=== PATIENT | male | born 1950 | race Asian ===

== ENCOUNTER → 2017-06-04 | Outpatient (CLI) | payer MEDICARE ==
[2017-06-04 17:46] LABS: BASO % 0.4 % (0.0-1.0); EOS # 0.2 K/mm3 (0.0-0.50); EOS % 2.1 % (0.0-3.0); LARGE UNSTAINED CELL # 0.2 K/mm3 (0.0-0.4); LARGE UNSTAINED CELL % 1.6 % (0.0-4.0); LYMPH % 26.1 % (24.0-44.0); MEAN CORPUSCULAR HEMOGLOBIN 34.5 pg (27.0-33.0); MEAN CORPUSCULAR HGB CONC 34.5 g/dl (32.0-36.5); MEAN CORPUSCULAR VOLUME 100.2 fl (80.0-96.0); MONO # 0.6 K/mm3 (0.0-0.8); MONO % 5.3 % (0.0-5.0); NEUTROPHILS # 6.9 K/mm3 (1.8-7.7); NEUTROPHILS % 64.5 % (36.0-66.0); PLATELET COUNT, AUTOMATED 236 k/mm3 (150-450); RED CELL DISTRIBUTION WIDTH 13.1 % (11.5-14.5); WHITE BLOOD COUNT 10.6 K/mm3 (4.0-10.0)
[2017-06-04 18:30] LABS: ALBUMIN 4.2 GM/DL (3.2-5.2); ALBUMIN/GLOBULIN RATIO 1.24 (1.00-1.93); ALKALINE PHOSPHATASE 87 U/L (45-117); ALT/SGPT 51 U/L (12-78); ANION GAP 8 MEQ/L (8-16); AST/SGOT 49 U/L (15-37); BILIRUBIN,TOTAL 0.6 MG/DL (0.2-1.0); BLOOD UREA NITROGEN 18 MG/DL (7-18); CALCIUM LEVEL 9.3 MG/DL (8.8-10.2); CARBON DIOXIDE LEVEL 22 MEQ/L (21-32); CHLORIDE LEVEL 109 MEQ/L (98-107); CREATININE FOR GFR 1.02 MG/DL (0.70-1.30); GLOMERULAR FILTRATION RATE > 60.0 (>49); GLUCOSE, FASTING 115 MG/DL (80-110); SODIUM LEVEL 139 MEQ/L (136-145); TOTAL PROTEIN 7.6 GM/DL (6.4-8.2)
== END ==
LOC: M WUC 15:34
PROVIDERS: ATTEND Physician Assistant
DX: N39.0 Urinary tract infection, site not specified (principal)

== ENCOUNTER 2017-10-02 11:46 | Inpatient (IN) | payer MEDICARE ==
[~2017-10-02] VITALS: Ht 177.8 cm; Wt 91.1 kg
[2017-10-02] MEDS ORDERED: OXYC-517 (12:01)
[2017-10-02] MEDS ORDERED: FLUO10TA2 (12:01)
[2017-10-02] MEDS ORDERED: PROAAER10 (12:01)
[2017-10-02] MEDS ORDERED: LISI10TA4 (12:01)
[2017-10-02] MEDS ORDERED: PRAD150C (12:01)
[2017-10-02] MEDS ORDERED: ATOR80TA59 (12:01)
[2017-10-02] MEDS ORDERED: CYCL10TA (12:01)
[2017-10-02] MEDS ORDERED: GABA-279 (12:01)
[2017-10-02] MEDS ORDERED: MAGN64TASA (12:01)
[2017-10-02] MEDS ORDERED: VALA1TAB2 (12:01)
[2017-10-02] MEDS ORDERED: TRAD5TAB (12:01)
[2017-10-02] MEDS ORDERED: FENO160T10 (12:01)
[2017-10-02] MEDS ORDERED: RANI150T (12:01)
[2017-10-02] MEDS ORDERED: BISO5TAB5 (12:01)
[2017-10-02] MEDS ORDERED: METF500T13 (12:01)
[2017-10-02] MEDS ORDERED: NS 1,000 ML IV ONE ×3 (14:15→19:00)
[2017-10-02] MEDS ORDERED: IPRATROPIUM 0.5MG/ALBUTEROL 2.5MG INH SOL UD 3ML (DUONEB)(J7620) NEB ONE (14:15)
[2017-10-02 14:24] LABS: MEAN CORPUSCULAR HEMOGLOBIN 33.5 pg (27.0-33.0); MEAN CORPUSCULAR HGB CONC 33.9 g/dl (32.0-36.5); PLATELET COUNT, AUTOMATED 293 10^3/uL (150-450); RED CELL DISTRIBUTION WIDTH 13.5 % (11.5-14.5); WHITE BLOOD COUNT 10.5 10^3/uL (4.0-10.0)
[2017-10-02 14:28] LABS: ADD MANUAL DIFFER YES; BLASTS POS FLAG; DIFF SLIDE NUMBER 327; POSITIVE MORPH POS FLAG
[2017-10-02 14:36] LABS: BANDS 5 % (< 11)
--- NOTE | 2017-10-02 15:17 | REP ---
Clinical: Cough. Technique: PA and lateral. Findings: Posterior right lower lobe opacity is nonspecific. Hilar adenopathy cannot be excluded. No effusion. No pneumothorax. Cardiac silhouette is normal. Skeletal structures are intact with evidence for right shoulder replacement. Impression: Moderate posterior segment right lower lobe opacity. Differential diagnosis includes pneumonia and mass. Correlation and follow-up is recommended. Signed by New Titus MD 10/02/2017 03:08 P
[2017-10-02 15:19] LABS: CALCIUM LEVEL 8.9 MG/DL (8.8-10.2); CREATININE FOR GFR 3.58 MG/DL (0.70-1.30); GLOMERULAR FILTRATION RATE 18.1 (>49); MAGNESIUM LEVEL 1.9 MG/DL (1.8-2.4); POTASSIUM SERUM 5.1 MEQ/L (3.5-5.1)
--- NOTE | 2017-10-02 16:14 | REP ---
Clinical: Cough and chills. Findings: Moderate areas of consolidation with air bronchograms noted in the apical portions of the right lower lobe as well as area of consolidation in the medial left upper lobe and few small scattered alveolar infiltrates bilaterally. Reactive mediastinal and hilar adenopathy is appreciated with lymph nodes measuring up to approximately 14 mm short axis diameter. No pneumothorax or pleural effusion. Atherosclerotic changes to the thoracic aorta and coronary arteries noted without aortic aneurysm or cardiomegaly. No pericardial effusion. Musculoskeletal structures are intact. Impression: Multifocal consolidations primarily noted in the right lower lobe and lingula as well as very small patchy scattered opacities and mediastinal adenopathy. Differential diagnosis includes multifocal pneumonia as well as malignancy. Follow-up to resolution is recommended. Signed by New Titus MD 10/02/2017 04:05 P
[2017-10-02] MEDS ORDERED: CEFTRIAXONE SOD 1 GM in APPROPRIATE DILUENT 1 EA IV ONE (17:00)
[2017-10-02] MEDS ORDERED: AZITHROMYCIN INJ 500 MG, VIAL MATE ADAPTER 1 EACH in D5W 250 ML IV ONE (17:00)
[2017-10-02] MEDS ORDERED: TRAD5TAB PO (17:42)
[2017-10-02] MEDS ORDERED: RANI15TA PO (17:42)
[2017-10-02] MEDS ORDERED: FENO160T10 PO (17:42)
[2017-10-02] MEDS ORDERED: GABA-279 PO (17:42)
[2017-10-02] MEDS ORDERED: VALA1TAB2 PO (17:42)
[2017-10-02] MEDS ORDERED: ATOR80TA59 PO (17:42)
[2017-10-02] MEDS ORDERED: CYCL10TA PO (17:42)
[2017-10-02] MEDS ORDERED: BISO5TAB5 PO (17:42)
[2017-10-02] MEDS ORDERED: PROAAER10 INH (17:42)
[2017-10-02] MEDS ORDERED: FLUO10CA8 PO (17:42)
[2017-10-02] MEDS ORDERED: OXYC-517 PO (17:42)
[2017-10-02] MEDS ORDERED: METF500T13 PO (17:42)
[2017-10-02] MEDS ORDERED: PRAD150C PO (17:42)
[2017-10-02] MEDS ORDERED: MAGN64TASA PO (17:42)
[2017-10-02] MEDS ORDERED: LISI10TA4 PO (17:42)
[2017-10-02] MEDS ORDERED: CYCLOBENZAPRINE 10 MG TAB PO PRN (18:30)
[2017-10-02] MEDS ORDERED: valACYclovir HCL 500 MG TAB PO PRN (18:30)
[2017-10-02] MEDS ORDERED: ONDANSETRON 4 MG TAB (S0181) PO PRN (18:45)
[2017-10-02 19:13] LABS: PHOSPHORUS LEVEL 6.7 MG/DL (2.5-4.9)
[2017-10-02] MEDS: NS 1,000 ML IV SCH (19:46)
--- NOTE | 2017-10-02 19:56 | HPEPDOC ---
General Date of Admission 10/02/17 Primary Care Physician: TRACIE SULLIVAN MD [facility] Chief Complaint 67-year-old male presents to the ED for dry cough, wheeze, headache, body aches , diarrhea, intermittent confusion per daughter, subjective fevers of 104, 20 lb weight loss in the past week, decreased appetite, lightheadedness and dizziness. Symptoms have persisted for the past 10 days. Denies travel history or recent changes in medicine or ever experiencing this before. Positive for sick contact: significant other has cough and stomach bug. Denies all other ROS including chest pain, shortness of breath, nausea, vomiting. PMH includes A. fib on Predaxa, HLD, HTN, COPD, NIDDM 2. In ED, imaging revealed pneumonia versus lung mass. Vitals WNL. Negative for flu. Home Medications Scheduled Atorvastatin Calcium (Atorvastatin Calcium) 80 Mg Tab, 80 MG PO QHS, (Reported) Bisoprolol Fumarate (Bisoprolol Fumarate) 5 Mg Tab, 15 MG PO DAILY, (Reported) Dabigatran Etexilate (Pradaxa) 150 Mg Cap, 150 MG PO BID, (Reported) Fenofibrate (Fenofibrate) 160 Mg Tab, 160 MG PO DAILY, (Reported) Fluoxetine Hcl (Fluoxetine) 10 Mg Cap, 10 MG PO QPM, (Reported) Gabapentin (Gabapentin) 100 Mg Cap, 100 MG PO BID, (Reported) Linagliptin Base (Tradjenta) 5 Mg Tab, 5 MG PO QPM, (Reported) Lisinopril (Lisinopril) 10 Mg Tab, 10 MG PO DAILY, (Reported) Magnesium Chloride (Mag64) 64 Mg Tabcr, 128 MG PO BID, (Reported) Metformin Hydrochloride (Metformin HCl) 500 Mg Tab, 1,000 MG PO BID, (Reported) Ranitidine Hcl (Zantac) 150 Mg Tab, 1 TAB PO BID, (Reported) Scheduled PRN Albuterol Sulfate (Proair Hfa) 108 Mcg/Act Aer, 2 PUFF INH QID PRN for SHORTNESS OF BREATH, (Reported) Cyclobenzaprine HCl (Cyclobenzaprine HCl) 10 Mg Tab, 10 MG PO TID PRN for MUSCLE SPASMS, (Reported) Oxycodone HCl (Oxycodone HCl) 5 Mg Tab, 5 MG PO Q6H PRN for PAIN, (Reported) Valacyclovir HCl (Valacyclovir HCl) 1 Gm Tab, 1 GM PO TID PRN for OUTBREAK, ( Reported) Allergies Coded Allergies: No Known Drug Allergy (Verified Allergy, Unknown, 10/02/17) Past Medical History Medical History A. fib on Predaxa HLD HTN COPD NIDDM 2 Recurrent herpes Depression GERD First degree AV block Psoriasis Tobacco abuse OA Chronic low back pain Surgical History Right foot infection, 1990s Right shoulder replacement Laminectomy Family History Father: Mother: Uterine cancer with metastases to abdomen Siblings: CAD, CABG, HTN Social History Tobacco abuse: 1 PPD for 40+ years Review of Symptoms Constitutional: Reports: Chills, Fever, Fatigue, Weight Loss (20lb in last week ), Denies: Malaise, Night Sweats Eyes: Denies: Pain, Vision change ENT: Reports: Head Aches, Denies: Ear Pain, Dysphagia, Epistaxis Skin: Denies: Rash, Lesions Pulmonary: Reports: Cough (dry), Denies: Dyspnea Cardiovascular: Reports: Lt Headedness (+ dizziness), Denies: Chest Pain, Palpitations, Edema Gastrointestinal: Reports: Diarrhea, Denies: Nausea, Vomiting, Abdominal Pain, Melena, Hematochezia Genitourinary: Denies: Hematuria Endocrine: Denies: Heat Intolerance, Cold Intolerance Musculoskeletal: Reports: Back Pain (chronic) Neurological: Reports: Confusion (intermittent, per daughter), Denies: Weakness, Numbness, Change in speech Psych: Reports: Mood Normal Physical Examination General Exam: Positive: Alert, Cooperative, No Acute Distress Eye Exam: Positive: Conjunctiva & lids normal, EOMI, Negative: Ptosis ENT Exam: Positive: Atraumatic, Tongue Midline, Nares Patent, Other ENT (poor dentition), Negative: Mucous membr. moist/pink (dry) Neck Exam: Positive: Supple Chest Exam: Positive: Wheezing (b/l ,expiratory) Heart Exam: Positive: Rate Normal, Normal S1, Normal S2 Abdomen Exam: Positive: BS Hypoactive, Soft (protuberant), Negative: Tenderness Extremity Exam: Positive: Normal pulses, Negative: Clubbing, Cyanosis, Edema, Tenderness Skin Exam: Positive: Nl turgor and temperature Neuro Exam: Positive: Normal Speech, Strength at 5/5 X4 ext, Normal Tone, Sensation Intact Psych Exam: Positive: Mood NL, Oriented x 3 Vital Signs Vital Signs Date Time Temp Pulse Resp B/P (MAP) Pulse Ox O2 Delivery O2 Flow Rate FiO2 10/02/17 18:01 73 21 82/50 (61) 95 Nasal Cannula 10/02/17 15:43 96.9 Laboratory Data Labs 24H Laboratory Tests 2 10/02/17 14:13: Nucleated Red Blood Cells % (auto) 0.0, Neutrophils 66, Band Neutrophils 5, Lymphocytes (Manual) 26, Monocytes (Manual) 2, Atypical Lymphocytes 1, Platelet Estimate NORMAL 10/02/17 14:50: Anion Gap 12, Glomerular Filtration Rate 18.1L, Blood Urea Nitrogen 54H, Creatinine 3.58H, Sodium Level 135L, Potassium Level 5.1, Chloride Level 106, Carbon Dioxide Level 17L, Calcium Level 8.9, Magnesium Level 1.9 10/02/17 17:51: CBC/BMP Laboratory Tests 10/02/17 14:13 Red Blood Count 3.91 L, Mean Corpuscular Volume 99.0 H, Mean Corpuscular Hemoglobin 33.5 H, Mean Corpuscular Hemoglobin Concent 33.9, Red Cell Distribution Width 13.5 10/02/17 14:50 Calcium Level 8.9 Microbiology Microbiology 10/02/17 Blood Culture, Received Pending 10/02/17 Blood Culture, Received Pending 10/02/17 Influenza Virus Type A Antigen - Final, Complete 10/02/17 Influenza Virus Type B Antigen - Final, Complete Assessment/Plan Cough, diarrhea, weight loss, aches Sx for past week, worsening. Imaging revealed possible pneumonia versus lung mass Will start Rocephin and azithromycin Repeat CT scan outpatient setting in 6-8 weeks Acute renal failure Normal at baseline. 3.58 on admission Multifactorial: diarrhea, decreased po intake within past week, nephrotoxic drugs, hypotension IV fluids 120cc/hr Renal ultrasound for possible underlying structural etiology Will check UA & urine electrolytes HTN hold home bisprolol due to soft bp in ED. May restart once more stable A. fib continue home Pradaxa HLD continue home statin COPD no acute exacerbation NIDDM2 hold home metformin and Linagliptin due to ARF start ISS inpatient Recurrent shingles hold home Valtrex due to ARF DVT ppx: DANNA/SCD DISPOSITION: will admit to hospital and transfer to Dr. Wilkerson's service in am Plan / VTE VTE Prophylaxis Ordered?: Yes (DANNA/SCD) GME ATTESTATION GME ATTESTATION My faculty preceptor for this patient encounter was physically present during the encounter and was fully available. All aspects of the patient interview, examination, medical decision making process, and medical care plan development were reviewed and approved by the faculty preceptor. The faculty preceptor is aware and concurs with the plan as stated in the body of this note and will attest to such by his/her cosignature. CAROLINA SAN DO Oct 02, 2017 18:29
[2017-10-02] MEDS ORDERED: GLUCOSE 4 GM CHEW TABLET PO PRN (20:15)
[2017-10-02] MEDS ORDERED: DEXTROSE 50% 50 ML SYRINGE IV PRN (20:15)
[2017-10-02] MEDS ORDERED: GLUCAGON FOR INJ 1 MG VIAL (J1610) SC PRN (20:15)
--- NOTE | 2017-10-02 20:46 | REP ---
Clinical: Acute renal failure. Technique: Real time yoo scale ultrasound examination using curved array transducer. Findings: The bilateral kidneys are normal in contour, size, echogenicity, and reniform shape without hydronephrosis, nephrolithiasis or renal mass lesion. No perinephric fluid collection identified. Right kidney measures 12.2 x 6.3 x 5.6 cm. Left kidney includes 2 cm lower pole cyst and measures 13.3 x 5.7 x 6.5 cm. Bladder is incompletely distended but grossly normal. Impression: Incidental 2 cm left renal cyst. Otherwise normal renal ultrasound. Signed by New Titus MD 10/02/2017 08:37 P
[2017-10-02 20:55] VITALS: BP 99/55
[2017-10-02] MEDS: HumaLOG INSULIN (NovoLOG) PER UNIT SC SCH (21:00)
[2017-10-02] MEDS ORDERED: FAMOTIDINE 20 MG TAB PO SCH (21:00)
[2017-10-02] MEDS ORDERED: SLF 3 ML SYR IV PRN (21:30)
[2017-10-02] MEDS: SLF 3 ML SYR IV SCH (22:00)
[2017-10-02] MEDS: ATORVASTATIN 20 MG TAB PO SCH (22:17)
[2017-10-02] MEDS: GABAPENTIN 100 MG CAP PO SCH (22:19)
[2017-10-02] MEDS: SENOKOT S TAB PO SCH (22:20)
[2017-10-02] MEDS: MAGNESIUM CHLORIDE 64 MG TABCR (SLO MAG) PO SCH (22:33)
[2017-10-02] MEDS: DABIGATRAN ETEXILATE 75 MG CAP (PRADAXA) PO SCH (22:33)
[2017-10-02] MEDS: FLUoxetine 10 MG CAP PO SCH (22:33)
[2017-10-02 22:54] LABS: OSMOLALITY URINE 382 MOSM/KG (500-800)
[2017-10-03] VITALS (8 sets, daily range): BP systolic 90–181; BP diastolic 52–79
[2017-10-03] MEDS: NS 1,000 ML IV SCH ×3 (02:54→21:15)
[2017-10-03] MEDS: SLF 3 ML SYR IV SCH ×3 (04:57→21:22)
[2017-10-03 05:51] LABS: MEAN CORPUSCULAR HEMOGLOBIN 33.2 pg (27.0-33.0); MEAN CORPUSCULAR HGB CONC 33.7 g/dl (32.0-36.5); MEAN CORPUSCULAR VOLUME 98.5 fl (80.0-96.0); PLATELET COUNT, AUTOMATED 265 10^3/uL (150-450); RED CELL DISTRIBUTION WIDTH 13.3 % (11.5-14.5); WHITE BLOOD COUNT 7.3 10^3/uL (4.0-10.0)
[2017-10-03 06:08] LABS: CALCIUM LEVEL 8.3 MG/DL (8.8-10.2); CREATININE FOR GFR 2.3 MG/DL (0.70-1.30); GLOMERULAR FILTRATION RATE 30.2 (>49); POTASSIUM SERUM 4.5 MEQ/L (3.5-5.1)
[2017-10-03] MEDS: HumaLOG INSULIN (NovoLOG) PER UNIT SC SCH ×5 (07:44→21:00)
--- NOTE | 2017-10-03 08:12 | ECGEPIP ---
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 Order Number: [id number] Reading MD: Clara Ren Measurements Intervals [place] Rate: 69 P: 10 ID: [id number] QRS: 89 QRSD: 111 T: 65 QT: 387 QTc: 416 Interpretive Statements SINUS RHYTHM WITH FIRST DEGREE AV BLOCK MODERATE INTRAVENTRICULAR CONDUCTION DELAY NO PRIOR FOR COMPARISON Electronically Signed On 10-03-2017 8:11:58 EST by Clara Ren
[2017-10-03] MEDS: SENOKOT S TAB PO SCH ×2 (09:04→21:19)
[2017-10-03] MEDS: DABIGATRAN ETEXILATE 75 MG CAP (PRADAXA) PO SCH ×2 (09:04→21:16)
[2017-10-03] MEDS: GABAPENTIN 100 MG CAP PO SCH ×2 (09:04→21:16)
[2017-10-03] MEDS: MAGNESIUM CHLORIDE 64 MG TABCR (SLO MAG) PO SCH ×2 (09:05→21:00)
[2017-10-03 10:04] LABS: ALBUMIN 2.5 GM/DL (3.2-5.2); MAGNESIUM LEVEL 1.8 MG/DL (1.8-2.4); PHOSPHORUS LEVEL 5.1 MG/DL (2.5-4.9)
[2017-10-03] MEDS: CEFTRIAXONE SOD 1 GM in APPROPRIATE DILUENT 1 EA IV SCH (17:21)
[2017-10-03] MEDS: AZITHROMYCIN INJ 500 MG, VIAL MATE ADAPTER 1 EACH in D5W 250 ML IV SCH (18:03)
[2017-10-03] MEDS: ATORVASTATIN 20 MG TAB PO SCH (21:15)
[2017-10-03] MEDS: FLUoxetine 10 MG CAP PO SCH (21:19)
--- NOTE | 2017-10-03 22:16 | IPNPDOC ---
Subjective Date Seen The patient was seen on 10/03/17. Subjective Chief Complaint/HPI The patient is a 67-year-old male admitted with a reason for visit of LISA. States symptoms are improving, except for shortness of breath. Does not wear O2 at home, but is at 2L NC this am. Constitutional: Reports: Fatigue (improving), Denies: Chills, Fever Eyes: Denies: Pain, Vision change ENT: Reports: Head Aches (improving), Denies: Dysphagia, Sore Throat, Epistaxis Pulmonary: Reports: Dyspnea, Cough (improving) Cardiovascular: Denies: Chest Pain, Palpitations, Edema, Lt Headedness Gastrointestinal: Reports: Diarrhea (improving), Denies: Nausea, Vomiting, Abdominal Pain, Melena, Hematochezia Genitourinary: Denies: Hematuria Musculoskeletal: Denies: Joint Pain, Muscle Pain Neurological: Denies: Weakness, Numbness, Confusion Objective Physical Examination General Exam: Positive: Alert, Cooperative, No Acute Distress Eye Exam: Positive: Conjunctiva & lids normal, EOMI, Negative: Ptosis ENT Exam: Positive: Atraumatic, Tongue Midline, Nares Patent, Other ENT (poor dentition) Neck Exam: Positive: Supple Chest Exam: Positive: Wheezing (improved from yesterday, mild expiratory wheezing b/l), Other (on 2L NC) Heart Exam: Positive: Rate Normal, Regular Rhythm, Normal S1, Normal S2 Abdomen Exam: Positive: Normal bowel sounds, Soft (protuberant), Negative: Tenderness Extremity Exam: Positive: Normal pulses, Negative: Clubbing, Cyanosis, Edema, Tenderness Skin Exam: Positive: Nl turgor and temperature Neuro Exam: Positive: Normal Speech, Strength at 5/5 X4 ext, Normal Tone, Sensation Intact Psych Exam: Positive: Mood NL, Oriented x 3 Assessment /Plan Assessment Cough, diarrhea, weight loss, aches Sx for past week. Feels better today than admission. Imaging revealed possible pneumonia versus lung mass. Feels slightly better today Blood cultures, Sputum culture, blood culture at 24 hr negative Resp pnel positive Adenovirus Day 2 of Rocephin and azithromycin encourage ambulation & incentive spirometry Repeat CT scan outpatient setting in 6-8 weeks Acute renal failure Normal at baseline. 3.58 on admission, improving on IV fluids Multifactorial: diarrhea, decreased po intake within past week, nephrotoxic drugs, hypotension Renal ultrasound pending-possible underlying structural etiology UA negative, urine electrolytes low osmoles HTN hold home bisprolol due to soft bp in ED. May restart once more stable A. fib continue home Pradaxa HLD continue home statin COPD no acute exacerbation NIDDM2 hold home metformin and Linagliptin due to ARF start ISS inpatient Recurrent shingles hold home Valtrex due to ARF DVT ppx: DANNA/SCD Plan/VTE VTE Prophylaxis Ordered?: Yes (DANNA/SCD) VS, I&O, 24H, Fishbone Vital Signs/I&O Vital Signs Date Time Temp Pulse Resp B/P (MAP) Pulse Ox O2 Delivery O2 Flow Rate FiO2 10/03/17 10:11 90/53 (65) 10/03/17 08:00 97.0 83 16 93 10/03/17 07:40 Nasal Cannula 2.0 I&O- Last 24 Hours up to 6 AM 10/04/17 06:00 Output Total 500 ml Balance -500 ml Laboratory Data 24H LABS Laboratory Tests 2 10/02/17 14:13: Nucleated Red Blood Cells % (auto) 0.0, Neutrophils 66, Band Neutrophils 5, Lymphocytes (Manual) 26, Monocytes (Manual) 2, Atypical Lymphocytes 1, Platelet Estimate NORMAL 10/02/17 14:50: Anion Gap 12, Glomerular Filtration Rate 18.1L, Blood Urea Nitrogen 54H, Creatinine 3.58H, Sodium Level 135L, Potassium Level 5.1, Chloride Level 106, Carbon Dioxide Level 17L, Calcium Level 8.9, Phosphorus Level 6.7H, Magnesium Level 1.9 10/02/17 17:51: Lactic Acid Level 1.3 10/02/17 22:07: Urine Appearance CLOUDYH, Urine Color SYLVIA, Urine pH 5.0, Urine Specific [place] 1.014, Urine Protein 2+H, Urine Glucose (UA) NEGATIVE, Urine Ketones NEGATIVE, Urine Urobilinogen 0.2, Urine Bilirubin NEGATIVE, Urine Leukocyte Esterase NEGATIVE, Urine Blood 2+H, Urine Nitrite NEGATIVE, Urine WBC (Auto) 4H , Urine RBC (Auto) 2, Urine Hyaline Casts (Auto) 1, Urine Bacteria (Auto) NEGATIVE, Urine Squamous Epithelial Cells 0, Urine Mucus (Auto) SMALL, Urine Sperm (Auto) , Urine Random Osmolality 382L, Urine Random Sodium 48, Urine Random Potassium 28.9 10/02/17 22:42: Bedside Glucose (Misc Panel) 115 10/03/17 05:32: Nucleated Red Blood Cells % (auto) 0.0, Anion Gap 11, Glomerular Filtration Rate 30.2L, Blood Urea Nitrogen 47H, Creatinine 2.30H, Sodium Level 141, Potassium Level 4.5, Chloride Level 114H, Carbon Dioxide Level 16L, Calcium Level 8.3L, Phosphorus Level 5.1#H, Magnesium Level 1.8, Albumin 2.5L 10/03/17 10:57: Bedside Glucose (Misc Panel) 154H CBC/BMP Laboratory Tests 10/02/17 14:13 Red Blood Count 3.91 L, Mean Corpuscular Volume 99.0 H, Mean Corpuscular Hemoglobin 33.5 H, Mean Corpuscular Hemoglobin Concent 33.9, Red Cell Distribution Width 13.5 10/02/17 14:50 Calcium Level 8.9 10/03/17 05:32 Red Blood Count 3.31 L, Mean Corpuscular Volume 98.5 H, Mean Corpuscular Hemoglobin 33.2 H, Mean Corpuscular Hemoglobin Concent 33.7, Red Cell Distribution Width 13.3, Calcium Level 8.3 L Microbiology Microbiology 10/02/17 Blood Culture, Received Pending 10/02/17 Blood Culture, Received Pending 10/02/17 Gram Stain, Received Pending 10/02/17 Sputum Culture, Received Pending 10/02/17 Respiratory Virus Panel (PCR) ([facility]) - Final, Complete Adenovirus 10/02/17 Influenza Virus Type A Antigen - Final, Complete 10/02/17 Influenza Virus Type B Antigen - Final, Complete GME ATTESTATION GME ATTESTATION My faculty preceptor for this patient encounter was physically present during the encounter and was fully available. All aspects of the patient interview, examination, medical decision making process, and medical care plan development were reviewed and approved by the faculty preceptor. The faculty preceptor is aware and concurs with the plan as stated in the body of this note and will attest to such by his/her cosignature. CAROLINA SAN DO Oct 03, 2017 11:33
[2017-10-04] MEDS: NS 1,000 ML IV SCH (00:54)
[2017-10-04 04:00] VITALS: BP 119/59
[2017-10-04] MEDS: SLF 3 ML SYR IV SCH ×3 (04:18→21:48)
[2017-10-04 05:40] LABS: MEAN CORPUSCULAR HEMOGLOBIN 33.4 pg (27.0-33.0); MEAN CORPUSCULAR HGB CONC 34.5 g/dl (32.0-36.5); PLATELET COUNT, AUTOMATED 296 10^3/uL (150-450); RED CELL DISTRIBUTION WIDTH 12.9 % (11.5-14.5); WHITE BLOOD COUNT 5.6 10^3/uL (4.0-10.0)
[2017-10-04 06:01] LABS: ANION GAP 9 MEQ/L (8-16); BLOOD UREA NITROGEN 22 MG/DL (7-18); CALCIUM LEVEL 8.1 MG/DL (8.8-10.2); CARBON DIOXIDE LEVEL 19 MEQ/L (21-32); CHLORIDE LEVEL 114 MEQ/L (98-107); CREATININE FOR GFR 0.87 MG/DL (0.70-1.30); GLUCOSE, FASTING 127 MG/DL (80-110); POTASSIUM SERUM 3.7 MEQ/L (3.5-5.1); SODIUM LEVEL 142 MEQ/L (136-145)
[2017-10-04 06:07] LABS: GLOMERULAR FILTRATION RATE > 60.0 (>49)
[2017-10-04 07:50] VITALS: BP 115/55
[2017-10-04] MEDS: GABAPENTIN 100 MG CAP PO SCH ×2 (07:50→21:44)
[2017-10-04] MEDS: DABIGATRAN ETEXILATE 75 MG CAP (PRADAXA) PO SCH ×2 (07:50→21:46)
[2017-10-04] MEDS: MAGNESIUM CHLORIDE 64 MG TABCR (SLO MAG) PO SCH ×2 (07:50→21:44)
[2017-10-04] MEDS: SENOKOT S TAB PO SCH ×2 (07:51→21:00)
[2017-10-04] MEDS: HumaLOG INSULIN (NovoLOG) PER UNIT SC SCH ×4 (07:51→21:00)
[2017-10-04] MEDS: oxyCODONE 5MG TAB PO PRN ×2 (07:52→16:48)
--- NOTE | 2017-10-04 08:29 | IPNPDOC ---
Subjective Date Seen The patient was seen on 10/04/17. Subjective Chief Complaint/HPI The patient is a 67-year-old male admitted with a reason for visit of LISA. No acute concerns or events overnight. Pt states all symptoms are almost fully resolved. No longer on NC O2. Constitutional: Denies: Chills, Fever Eyes: Denies: Pain, Vision change ENT: Denies: Head Aches, Dysphagia Pulmonary: Reports: Dyspnea (on exertion), Denies: Cough Cardiovascular: Denies: Chest Pain, Palpitations, Edema, Lt Headedness Gastrointestinal: Denies: Nausea, Vomiting, Abdominal Pain, Diarrhea, Constipation Genitourinary: Denies: Dysuria, Hematuria Musculoskeletal: Denies: Joint Pain, Muscle Pain Neurological: Denies: Weakness, Numbness Psych: Reports: Mood Normal Objective Physical Examination General Exam: Positive: Alert, Cooperative, No Acute Distress Eye Exam: Positive: Conjunctiva & lids normal, EOMI, Negative: Ptosis ENT Exam: Positive: Atraumatic, Tongue Midline, Nares Patent, Other ENT (poor dentition) Neck Exam: Positive: Supple Chest Exam: Positive: Normal air movement, Rales (mild, RLL) Heart Exam: Positive: Rate Normal, Regular Rhythm, Normal S1, Normal S2 Abdomen Exam: Positive: Normal bowel sounds, Soft (protuberant), Negative: Tenderness Extremity Exam: Positive: Normal pulses, Negative: Clubbing, Cyanosis, Edema, Tenderness Skin Exam: Positive: Nl turgor and temperature Neuro Exam: Positive: Normal Speech, Strength at 5/5 X4 ext, Normal Tone, Sensation Intact Psych Exam: Positive: Mood NL, Oriented x 3 Assessment /Plan Assessment Cough, diarrhea, weight loss, aches Sx for past week. Feels better today than admission. Imaging revealed possible pneumonia versus lung mass. Feels almost fully improved today Blood cultures, Sputum culture, blood culture at 24 hr negative Resp panel positive Adenovirus Day 3 of Rocephin and azithromycin encourage ambulation & incentive spirometry Repeat CT scan outpatient setting in 6-8 weeks participate in PT Acute renal failure normalized today with IV fluids Multifactorial: diarrhea, decreased po intake within past week, nephrotoxic drugs, hypotension Renal ultrasound-no acute concerns UA negative, urine electrolytes low osmoles HTN hold home bisoprolol due to soft bp in ED. May restart once more stable A. fib continue home Pradaxa HLD continue home statin COPD no acute exacerbation NIDDM2 hold home metformin and Linagliptin due to ARF start ISS inpatient Recurrent shingles hold home Valtrex due to ARF DVT ppx: DANNA/SCD Plan/VTE VTE Prophylaxis Ordered?: Yes (DANNA/SCD) VS, I&O, 24H, Fishbone Vital Signs/I&O Vital Signs Date Time Temp Pulse Resp B/P (MAP) Pulse Ox O2 Delivery O2 Flow Rate FiO2 10/04/17 07:52 18 10/04/17 04:19 Room Air 10/04/17 04:00 97.9 88 119/59 (79) 93 10/03/17 16:02 2.0 I&O- Last 24 Hours up to 6 AM 10/05/17 06:00 Intake Total 120 ml Balance 120 ml Laboratory Data 24H LABS Laboratory Tests 2 10/03/17 10:57: Bedside Glucose (Misc Panel) 154H 10/03/17 17:00: Bedside Glucose (Misc Panel) 133H 10/03/17 21:21: Bedside Glucose (Misc Panel) 127H 10/04/17 05:23: Nucleated Red Blood Cells % (auto) 0.0, Anion Gap 9, Glomerular Filtration Rate > 60.0, Blood Urea Nitrogen 22#H, Creatinine 0.87#, Sodium Level 142, Potassium Level 3.7, Chloride Level 114H, Carbon Dioxide Level 19L, Calcium Level 8.1L CBC/BMP Laboratory Tests 10/04/17 05:23 Red Blood Count 3.32 L, Mean Corpuscular Volume 97.0 H, Mean Corpuscular Hemoglobin 33.4 H, Mean Corpuscular Hemoglobin Concent 34.5, Red Cell Distribution Width 12.9, Calcium Level 8.1 L Microbiology Microbiology 10/02/17 Blood Culture - Preliminary, Resulted No growth after 24 hours . All specim... 10/02/17 Blood Culture - Preliminary, Resulted No growth after 24 hours . All specim... 10/02/17 Gram Stain - Final, Resulted 10/02/17 Sputum Culture, Resulted Pending 10/02/17 Respiratory Virus Panel (PCR) ([facility]) - Final, Complete Adenovirus 10/02/17 Influenza Virus Type A Antigen - Final, Complete 10/02/17 Influenza Virus Type B Antigen - Final, Complete GME ATTESTATION GME ATTESTATION My faculty preceptor for this patient encounter was physically present during the encounter and was fully available. All aspects of the patient interview, examination, medical decision making process, and medical care plan development were reviewed and approved by the faculty preceptor. The faculty preceptor is aware and concurs with the plan as stated in the body of this note and will attest to such by his/her cosignature. CAROLINA SAN DO Oct 04, 2017 08:29
[2017-10-04] MEDS: IPRATROPIUM 0.5MG/ALBUTEROL 2.5MG INH SOL UD 3ML (DUONEB)(J7620) NEB SCH ×3 (12:00→21:09)
[2017-10-04 12:30] VITALS: BP 129/58
[2017-10-04] MEDS ORDERED: IPRATROPIUM 0.5MG/ALBUTEROL 2.5MG INH SOL UD 3ML (DUONEB)(J7620) NEB PRN (13:30)
[2017-10-04] MEDS ORDERED: CYCLOBENZAPRINE 10 MG TAB PO PRN (15:15)
[2017-10-04 16:15] VITALS: BP 121/58
[2017-10-04] MEDS: valACYclovir HCL 500 MG TAB PO SCH (16:48)
[2017-10-04] MEDS: AZITHROMYCIN INJ 500 MG, VIAL MATE ADAPTER 1 EACH in D5W 250 ML IV SCH (17:53)
[2017-10-04] MEDS: CEFTRIAXONE SOD 1 GM in APPROPRIATE DILUENT 1 EA IV SCH (17:53)
[2017-10-04 20:00] VITALS: BP 109/59
[2017-10-04] MEDS: ATORVASTATIN 20 MG TAB PO SCH (21:44)
[2017-10-04] MEDS: FLUoxetine 10 MG CAP PO SCH (21:47)
[2017-10-04] MEDS: raNITIdine SYRUP 150 MG/10 ML UDC PO SCH (21:47)
[2017-10-05] VITALS: BP 110/63
[2017-10-05] MEDS: IPRATROPIUM 0.5MG/ALBUTEROL 2.5MG INH SOL UD 3ML (DUONEB)(J7620) NEB SCH ×4 (03:06→11:22)
[2017-10-05 04:00] VITALS: BP 115/76
[2017-10-05] MEDS: SLF 3 ML SYR IV SCH (04:02)
[2017-10-05 05:43] LABS: MEAN CORPUSCULAR HEMOGLOBIN 33.4 pg (27.0-33.0); MEAN CORPUSCULAR HGB CONC 35.4 g/dl (32.0-36.5); MEAN CORPUSCULAR VOLUME 94.4 fl (80.0-96.0); PLATELET COUNT, AUTOMATED 340 10^3/uL (150-450); RED CELL DISTRIBUTION WIDTH 12.6 % (11.5-14.5); WHITE BLOOD COUNT 5.7 10^3/uL (4.0-10.0)
[2017-10-05 06:08] LABS: ANION GAP 10 MEQ/L (8-16); BLOOD UREA NITROGEN 12 MG/DL (7-18); CALCIUM LEVEL 8.6 MG/DL (8.8-10.2); CARBON DIOXIDE LEVEL 20 MEQ/L (21-32); CHLORIDE LEVEL 112 MEQ/L (98-107); CREATININE FOR GFR 0.79 MG/DL (0.70-1.30); GLOMERULAR FILTRATION RATE > 60.0 (>49); GLUCOSE, FASTING 146 MG/DL (80-110); POTASSIUM SERUM 3.9 MEQ/L (3.5-5.1); SODIUM LEVEL 142 MEQ/L (136-145)
[2017-10-05 07:30] VITALS: BP 126/66
[2017-10-05] MEDS: HumaLOG INSULIN (NovoLOG) PER UNIT SC SCH ×2 (07:30→11:50)
[2017-10-05] MEDS: DABIGATRAN ETEXILATE 75 MG CAP (PRADAXA) PO SCH (08:34)
[2017-10-05] MEDS: SENOKOT S TAB PO SCH (08:35)
[2017-10-05] MEDS: GABAPENTIN 100 MG CAP PO SCH (08:35)
[2017-10-05] MEDS: valACYclovir HCL 500 MG TAB PO SCH (08:35)
[2017-10-05] MEDS: MAGNESIUM CHLORIDE 64 MG TABCR (SLO MAG) PO SCH (08:35)
[2017-10-05] MEDS: raNITIdine SYRUP 150 MG/10 ML UDC PO SCH (08:35)
[2017-10-05 12:00] VITALS: BP 120/60
[2017-10-05] MEDS ORDERED: CEFD300CAP FT (13:05)
[2017-10-05] MEDS ORDERED: AZIT500T2 PO (13:05)
--- NOTE | 2017-10-05 13:24 | DS.PDOC ---
Discharge Summary General Date of Admission Oct 02, 2017 at 18:58 Date of Discharge 10/05/17 Primary Care Physician: Perez Bullock MD Attending Physician: RUCHI CORNELIUS MD Discharge Summary PROCEDURES PERFORMED DURING STAY: None ADMITTING DIAGNOSES: 1. Community Acquired Pneumonia 2. Acute Kidney Injury DISCHARGE DIAGNOSES: 1. Community Acquired Pneumonia 2. Adenovirus 3. Oropharyngeal Candidiasis 4. A. fib on Pradaxa 5. HLD 6. HTN 7. COPD, not on O2 8. NIDDM 2 9. Recurrent herpes 10. Depression 11. GERD 12. First degree AV block 13. Psoriasis 14. Tobacco abuse 15. OA COMPLICATIONS/CHIEF COMPLAINT: LISA. HISTORY OF PRESENT ILLNESS: Pt presented to ED with complaints of dry cough, wheeze, headache, body aches, diarrhea, intermittent confusion per daughter, subjective fevers of 104, 20 lb weight loss in the past week, decreased appetite , lightheadedness and dizziness for the previous ~2 weeks. Denies travel history or recent changes in medicine or ever experiencing this before. Positive for sick contact: significant other has cough and stomach bug. In ED, imaging revealed pneumonia versus lung mass, vitals WNL, and negative for flu. HOSPITAL COURSE: Started on IV antibiotics. Pt has normal kidney function at baseline, but Cr was elevated at 3.58 on admission, resolved with IV fluids and withholding some of pt's regular nephrotoxic home medications; renal US was negative for underlying structural disease. LISA was likely due to a combination of dehydration from diarrhea, decreased po intake, and low bp. Blood cultures negative, Resp panel resulted positive for Adenovirus, and sputum culture for yeast-like organism. Pt did not have fever or complications during stay. Started feeling better and medically stable and cleared for discharge. Instructed to f/u with PCP and repeat chest CT in 6-[address] showing possible PNA vs mass, and to complete course of PO antibiotics and antifungal. DISCHARGE MEDICATIONS: Please see below. ALLERGIES: Please see below. PHYSICAL EXAMINATION ON DISCHARGE: VITAL SIGNS: Please see below. GENERAL: NAD, A&Ox3 HEENT: normocephalic, atraumatic, EOMI, no ptosis, poor dentition NECK: supple CARDIOVASCULAR EXAMINATION: Normal S1 S2, RRR RESPIRATORY EXAMINATION: mild expiratory wheezing ABDOMINAL EXAMINATION: protuberant, NT, ND, positive bowel sounds EXTREMITIES: no c/c/e, no tenderness SKIN: no visible rash, pink, dry, warm NEUROLOGICAL EXAMINATION: normal speech, strength at 5/5 X4 ext, normal tone, sensation intact PSYCHIATRIC EXAMINATION: normal mood & affect LABORATORY DATA: Please see below. IMAGING: * 10/02/17 CXR: Moderate posterior segment right lower lobe opacity. Differential diagnosis includes pneumonia and mass. Correlation and follow-up is recommended. * 10/02/[address]: Multifocal consolidations primarily noted in the right lower lobe and lingula as well as very small patchy scattered opacities and mediastinal adenopathy. Differential diagnosis includes multifocal pneumonia as well as malignancy. Follow-up to resolution is recommended. * 10/02/17 Renal US: Incidental 2 cm left renal cyst. Otherwise normal renal ultrasound. PROGNOSIS: good ACTIVITY: As tolerated DIET: low salt, low fats DISPOSITION: home DISCHARGE INSTRUCTIONS: 1. F/U with PCP in 3-5 days, repeat chest CT scan in 6-8 weeks for PNA vs mass 2. Complete course of po antibiotics and antifungal 3. Return to ED for emergency DISCHARGE CONDITION: Stable TIME SPENT ON DISCHARGE: Greater than 40 minutes. Vital Signs/I&Os Vital Signs Date Time Temp Pulse Resp B/P (MAP) Pulse Ox O2 Delivery O2 Flow Rate FiO2 10/05/17 08:00 Room Air 10/05/17 07:30 96.8 107 20 126/66 (86) 93 10/03/17 16:02 2.0 Laboratory Data Labs 24H Laboratory Tests 2 10/04/17 21:39: Bedside Glucose (Misc Panel) 164H 10/05/17 05:09: Nucleated Red Blood Cells % (auto) 0.0, Anion Gap 10, Glomerular Filtration Rate > 60.0, Blood Urea Nitrogen 12, Creatinine 0.79, Sodium Level 142, Potassium Level 3.9, Chloride Level 112H, Carbon Dioxide Level 20L, Calcium Level 8.6L 10/05/17 11:31: Bedside Glucose (Misc Panel) 214H CBC/BMP Laboratory Tests 10/05/17 05:09 Red Blood Count 3.20 L, Mean Corpuscular Volume 94.4, Mean Corpuscular Hemoglobin 33.4 H, Mean Corpuscular Hemoglobin Concent 35.4, Red Cell Distribution Width 12.6, Calcium Level 8.6 L FSBS Laboratory Tests Test 10/04/17 21:39 10/05/17 11:31 Range/Units Bedside Glucose (Misc Panel) 164 214 80-115 MG/DL Microbiology Microbiology 10/02/17 Blood Culture - Preliminary, Resulted No Growth after 48 hours. All Specime... 10/02/17 Blood Culture - Preliminary, Resulted No Growth after 48 hours. All Specime... 10/02/17 Gram Stain - Final, Complete 10/02/17 Sputum Culture - Final, Complete Yeast Like Organism 10/02/17 Respiratory Virus Panel (PCR) ([facility]) - Final, Complete Adenovirus 10/02/17 Influenza Virus Type A Antigen - Final, Complete 10/02/17 Influenza Virus Type B Antigen - Final, Complete Discharge Medications Scheduled Atorvastatin Calcium (Atorvastatin Calcium) 80 Mg Tab, 80 MG PO QHS, (Reported) Azithromycin (Azithromycin) 500 Mg Tab, 500 MG PO DAILY Bisoprolol Fumarate (Bisoprolol Fumarate) 5 Mg Tab, 15 MG PO DAILY, (Reported) Cefdinir (Cefdinir) 300 Mg Cap, 300 MG FT Q12H Dabigatran Etexilate (Pradaxa) 150 Mg Cap, 150 MG PO BID, (Reported) Fenofibrate (Fenofibrate) 160 Mg Tab, 160 MG PO DAILY, (Reported) Fluoxetine Hcl (Fluoxetine) 10 Mg Cap, 10 MG PO QPM, (Reported) Gabapentin (Gabapentin) 100 Mg Cap, 100 MG PO BID, (Reported) Linagliptin Base (Tradjenta) 5 Mg Tab, 5 MG PO QPM, (Reported) Lisinopril (Lisinopril) 10 Mg Tab, 10 MG PO DAILY, (Reported) Magnesium Chloride (Mag64) 64 Mg Tabcr, 128 MG PO BID, (Reported) Metformin Hydrochloride (Metformin HCl) 500 Mg Tab, 1,000 MG PO BID, (Reported) Ranitidine Hcl (Zantac) 150 Mg Tab, 1 TAB PO BID, (Reported) Scheduled PRN Albuterol Sulfate (Proair Hfa) 108 Mcg/Act Aer, 2 PUFF INH QID PRN for SHORTNESS OF BREATH, (Reported) Cyclobenzaprine HCl (Cyclobenzaprine HCl) 10 Mg Tab, 10 MG PO TID PRN for MUSCLE SPASMS, (Reported) Oxycodone HCl (Oxycodone HCl) 5 Mg Tab, 5 MG PO Q6H PRN for PAIN, (Reported) Valacyclovir HCl (Valacyclovir HCl) 1 Gm Tab, 1 GM PO TID PRN for OUTBREAK, ( Reported) Allergies Coded Allergies: No Known Drug Allergy (Verified Allergy, Unknown, 10/02/17) GME ATTESTATION GME ATTESTATION My faculty preceptor for this patient encounter was physically present during the encounter and was fully available. All aspects of the patient interview, examination, medical decision making process, and medical care plan development were reviewed and approved by the faculty preceptor. The faculty preceptor is aware and concurs with the plan as stated in the body of this note and will attest to such by his/her cosignature. CAROLINA SAN DO Oct 05, 2017 13:24
[2017-10-05] MEDS ORDERED: FLUC200T2 PO (13:38)
== END 2017-10-05 13:24 | disposition home or self-care (01) | DRG 682 ==
LOC: M ED 11:46 → M ED INP 18:58 → M PCU 20:42
PROVIDERS: ADMIT Internal Medicine; ATTEND Internal Medicine
DX: N17.9 Acute kidney failure, unspecified (principal); J18.9 Pneumonia, unspecified organism; J44.0 Chronic obstructive pulmonary disease with (acute) lower respiratory infection; B37.0 Candidal stomatitis; B97.0 Adenovirus as the cause of diseases classified elsewhere; I48.91 Unspecified atrial fibrillation; F17.210 Nicotine dependence, cigarettes, uncomplicated; B02.9 Zoster without complications; K21.9 Gastro-esophageal reflux disease without esophagitis; E78.5 Hyperlipidemia, unspecified; I10 Essential (primary) hypertension; E11.9 Type 2 diabetes mellitus without complications; Z79.01 Long term (current) use of anticoagulants; Z79.84 Long term (current) use of oral hypoglycemic drugs; Z79.899 Other long term (current) drug therapy; Z96.611 Presence of right artificial shoulder joint

== ENCOUNTER → 2018-01-29 | Outpatient (REF) | payer MEDICARE ==
[2018-01-30 10:35] LABS: HEPATITIS B SURFACE ANTIGEN NEGATIVE (NEGATIVE)
[2018-01-30 10:57] LABS: HEPATITIS C VIRUS ABY INDEX < 0.0 INDEX (<0.8)
[2018-01-30 11:19] LABS: HIV 1&2 SCREEN CENTAUR NEGATIVE (NEGATIVE)
== END ==
LOC: M SFHCPLAZ 10:54
DX: Z11.59 Encounter for screening for other viral diseases (principal); B00.9 Herpesviral infection, unspecified; I10 Essential (primary) hypertension; E11.9 Type 2 diabetes mellitus without complications; M54.5 Low back pain; Z79.84 Long term (current) use of oral hypoglycemic drugs; Z79.899 Other long term (current) drug therapy
CPT/HCPCS: 87340

== ENCOUNTER → 2018-04-29 | Outpatient (CLI) | payer MEDICARE | LOC: M RAD 10:13 | DX: I65.29 Occlusion and stenosis of unspecified carotid artery (principal) | CPT/HCPCS: 93880 ==

== ENCOUNTER → 2018-06-05 | Outpatient (CLI) | payer MEDICARE ==
[2018-06-05 10:33] LABS: BLOOD UREA NITROGEN 19 MG/DL (7-18)
[2018-06-05 10:33] LABS: CREATININE FOR GFR 1.06 MG/DL (0.70-1.30); GLOMERULAR FILTRATION RATE > 60.0 (>42)
== END ==
LOC: M LAB 09:38
DX: I65.23 Occlusion and stenosis of bilateral carotid arteries (principal)
CPT/HCPCS: 82565

== ENCOUNTER → 2019-01-10 | Outpatient (CLI) | payer MEDICARE ==
[~2019-01-10] MED LIST: ATOR80TA59; ATOR80TA59 PO; AZIT500T2 PO; BISO5TAB5; BISO5TAB5 PO; CEFD300CAP FT; CYCL10TA; CYCL10TA PO; FENO160T10; FENO160T10 PO; FLUC200T2 PO; FLUO10CA8 PO; FLUO10TA2; GABA-1171; GABA-1171 PO; LISI10TA4; LISI10TA4 PO; MAGN64TASA; MAGN64TASA PO; METF500T13; METF500T13 PO; OXYC-517; OXYC-517 PO; PRAD150C; PRAD150C PO; PROAAER10; PROAAER10 INH; RANI150T; RANI15TA PO; TRAD5TAB; TRAD5TAB PO; VALA1TAB2; VALA1TAB2 PO
--- NOTE | 2019-01-10 12:40 | REP ---
CAROTID ULTRASOUND: Real-time sonographic evaluation and duplex Doppler interrogation of the extracranial carotid vasculature is performed. There is moderate plaquing and narrowing in both carotid bulbs extending into the internal and external carotid arteries. There is an elevated peak systolic velocity of the left internal carotid artery as well as elevated ICA to CCA ratio compatible with left ICA stenosis in the range of 60-79%. Luminal narrowing of the right ICA is in the range of under 50%. There is normal direction of flow in both vertebral arteries. Cysts are seen in the right lobe of the thyroid, largest measuring 5 mm. There is a heterogeneous solid appearing nodule in the left lobe of the thyroid 1.6 x 1.2 x 1.4 cm. RIGHT LEFT Peak systolic velocity ICA 102.0 cm/s 176.0 cm/s End diastolic velocity ICA 30.0 cm/s 39.5 cm/s Peak systolic velocity CCA 69.6 cm/s 72.4 cm/s Peak systolic velocity ECA 99.8 cm/s 218.0 cm/s ICA/CCA ratio 1.9 3.1 IMPRESSION: Moderate plaquing and narrowing in both carotid bulbs extending into the internal and external carotid arteries. There is stenosis of the left internal carotid artery 60-79%. Luminal narrowing right ICA less than 50%. Solid appearing nodule left lobe of thyroid 1.6 cm maximally. Recommend followup thyroid ultrasound in 6 months. Electronically Signed by Maury Hernandez MD 01/13/2019 11:10 A
== END ==
LOC: M RAD 10:10
PROVIDERS: ATTEND Surgery Vascular Surgery
DX: I65.23 Occlusion and stenosis of bilateral carotid arteries (principal); E04.1 Nontoxic single thyroid nodule

== ENCOUNTER → 2019-08-13 | Outpatient (CLI) | payer MEDICARE ==
[~2019-08-13] MED LIST changes: -BISO5TAB5; -BISO5TAB5 PO; +BISO5TAB9; +BISO5TAB9 PO; -PRAD150C; -PRAD150C PO; +PRAD150C6; +PRAD150C6 PO
--- NOTE | 2019-08-13 10:36 | REP ---
CAROTID ULTRASOUND: Real-time ultrasound evaluation and duplex Doppler interrogation of the extracranial carotid vasculature is performed. COMPARISON: 01/10/2019 Once again, there is moderate partially calcified plaquing and narrowing in both carotid bulbs extending into the internal and external carotid arteries. The previously noted elevated peak systolic velocity in the left internal carotid artery is not seen on today's exam. Therefore, based on velocity criteria, luminal narrowing is less than 50% bilaterally. There are normal ICA/CCA ratios bilaterally. There is normal direction of flow in both vertebral arteries. RIGHT LEFT Peak systolic velocity ICA 97.5 cm/s 110 cm/s End diastolic velocity ICA 25.0 cm/s 34.4 cm/s Peak systolic velocity CCA 73.7 cm/s 85.7 cm/s Peak systolic velocity ECA 50.0 cm/s 156.0 cm/s ICA/CCA ratio 1.3 1.3 Incidental note is made of a 3 mm hypoechoic nodule or cyst in the left thyroid, of doubtful significance. IMPRESSION: Moderate plaquing and narrowing of both carotid bulbs and internal carotid arteries. Based on velocity criteria, there is no hemodynamically significant stenosis on today's exam with luminal narrowing less than 50%. The previously noted increased peak velocity in the left internal carotid artery is not seen on today's exam. Electronically Signed by Maury Hernandez MD 08/13/2019 06:23 P
== END ==
LOC: M RAD 08:36
PROVIDERS: ATTEND Physician Assistant
DX: I65.23 Occlusion and stenosis of bilateral carotid arteries (principal)

== ENCOUNTER → 2020-12-10 | Outpatient (CLI) | payer MEDICARE ==
[~2020-12-10] MED LIST changes: -AZIT500T2 PO; +AZIT500T5 PO; +BISO5TAB14; +BISO5TAB14 PO; -BISO5TAB9; -BISO5TAB9 PO; +CYCL-707; +CYCL-707 PO; -CYCL10TA; -CYCL10TA PO; +FLUO10CA16 PO; -FLUO10CA8 PO; +LISI10TA22; +LISI10TA22 PO; -LISI10TA4; -LISI10TA4 PO; -VALA1TAB2; -VALA1TAB2 PO; +VALA1TAB5; +VALA1TAB5 PO
--- NOTE | 2020-12-10 10:53 | REP ---
INDICATION: OCCLUSION AND STENOSIS COMPARISON: Comparison study is from August 13, 2019.. TECHNIQUE: Real-time ultrasound evaluation and duplex Doppler interrogation of the extracranial carotid vasculature is performed. FINDINGS: Antegrade flow is observed in both vertebral arteries. Right carotid: The right common carotid artery shows diffuse intimal thickening but is otherwise unremarkable. There moderate mixed plaquing in the right carotid bulb and proximal ICA on two-dimensional scanning. Color flow and spectral Doppler interrogation are unremarkable on the right. Velocity chart right carotid: Right CCA PSV: 76 cm/S Right ICA PSV: 196 cm/S Right ICA EDV: 65 cm/S Right ECA PSV: 147 cm/S Right ICA/CCA ratio: 2.5 Left carotid: The left common carotid artery shows diffuse intimal thickening but is otherwise unremarkable. There is moderate mixed plaquing in the left carotid bulb and proximal ICA on two-dimensional scanning. Color flow and spectral Doppler interrogation are unremarkable on the left. Velocity chart left carotid: Left CCA PSV: 77 cm/S Left ICA PSV: 161 cm/S Left ICA EDV: 60 cm/S Left ECA PSV: 245 cm/S Left ICA/CCA ratio: 2.0 IMPRESSION: 50 to 69% category narrowing in the right internal carotid artery by Doppler velocity criteria. Velocities have increased in the ICA on the right since the prior study. The of also increased in the ECA on the right. 50-69% category narrowing in the left ICA by Doppler velocity criteria. ICA and ECA velocities are higher today than on the prior study. <Electronically signed by aMnsoor Trevizo > 12/10/20 [id number]
== END ==
LOC: M RAD 08:51
PROVIDERS: ATTEND Physician Assistant
DX: I65.23 Occlusion and stenosis of bilateral carotid arteries (principal)

== ENCOUNTER → 2021-01-31 | Outpatient (CLI) | payer MEDICARE ==
--- NOTE | 2021-01-31 10:47 | REP ---
INDICATION: SCREENING FOR LUNG CA COMPARISON: 10/02/2017 TECHNIQUE: Axial noncontrast images from the thoracic inlet to the upper abdomen using low-dose lung screening technique (LDCT). FINDINGS: There is a 2.5 cm rounded opacity in the basilar right upper lobe having a somewhat spiculated/sunburst appearance with adjacent area of opacity. This finding represents a new finding as compared with 2017 and the previous areas of consolidation have resolved. Few mediastinal lymph nodes are again identified and similar to prior examination. No further consolidation, effusion, or pneumothorax. Tracheobronchial tree is patent. IMPRESSION: Lung-RADS category 4B. A 2.5 cm suspicious opacity in the basilar right upper lobe with spiculated margins and adjacent surrounding ground-glass opacity. Findings require further attention. Consider PET-CT and/or tissue sampling. <Electronically signed by [place] T[place] > 01/31/21 1040
== END ==
LOC: M RAD 10:25
PROVIDERS: ATTEND Family Medicine
DX: Z12.2 Encounter for screening for malignant neoplasm of respiratory organs (principal); R91.8 Other nonspecific abnormal finding of lung field

== ENCOUNTER → 2021-02-14 | Outpatient (CLI) | payer MEDICARE ==
--- NOTE | 2021-02-16 11:31 | REP ---
INDICATION: STAGING NEOPLASM OF UNCERTAIN BEHAVIOR LUNG D38.1. COMPARISON: Comparison chest CT January 31, 2021. TECHNIQUE: Sixty-three minutes following the intravenous injection of a 16.38 mCi dose of F-18 FDG, three-dimensional PET scintigraphy is acquired from the skull base to the proximal thighs. Triplanar noncontrast CT scanning is acquired through the same anatomic range for attenuation correction, and image registration with scan parameters optimized to minimize radiation exposure to the patient. PET scintigraphy and CT datasets were fused and displayed on a workstation with multiplanar and projection display capability. FINDINGS: No abnormality is noted in the head and neck soft tissues. There appears to be a prosthetic right shoulder joint. No abnormal hilar or mediastinal hypermetabolic bakari uptake is seen in the chest. The part solid 2.9 cm right upper lobe nodule identified on recent chest CT study is again seen. Maximum standard uptake value within this nodule is 1.85. This visible FDG accumulation is not considered hypermetabolic. However, this does not exclude low grade malignancy given the somewhat suspicious morphology of the lesion. No other abnormal hypermetabolic uptake is seen within the thorax. There is borderline uptake in 2 normal-sized left axillary lymph nodes, maximum standard uptake value 2.13 in the 1.1 cm lymph node which is the more superior of the 2.. Maximum standard uptake value in a inferiorly adjacent lymph node is 2.82. This lymph node has a very thin cortical margin and preserved fatty hilar architecture. This is not most likely incidental finding. There is no abnormal uptake in the breast soft tissues on either side. One consideration would be reactive lymphadenopathy if the patient had an ipsilateral recent vaccination. In the abdomen and pelvis there is normal distribution of FDG. No abnormal hypermetabolic uptake is seen in the abdomen or pelvis. IMPRESSION: The morphologically suspicious right upper lobe part solid nodule shows discernible but non hypermetabolic level FDG accumulation. This is not felt to exclude malignancy. No other abnormal hypermetabolic uptake is appreciated. Incidental low level uptake in the left axillary lymph nodes most likely reactive. <Electronically signed by Mansoor Trevizo > 02/16/21 1125
== END ==
LOC: M PLARAD 14:44
PROVIDERS: ATTEND Family Medicine
DX: D38.1 Neoplasm of uncertain behavior of trachea, bronchus and lung (principal); R91.1 Solitary pulmonary nodule
CPT/HCPCS: 78815; A9552

== ENCOUNTER → 2021-03-02 | Outpatient (CLI) | payer MEDICARE ==
--- NOTE | 2021-03-02 16:59 | REP ---
INDICATION: OTHER NONSPECIFIC ABNORMAL FINDING OF LUNG FIELD. COMPARISON: Comparison CT study January 31, 2021 and October 02, 2017.. TECHNIQUE: Helical scanning is acquired. 3 mm axial images are generated. Coronal and sagittal MPR and coronal MIP images are generated. I logic protocol acquisition is reformatted as well. FINDINGS: There is a spiculated 2.7 cm not completely solid nodule in the posterior segment of the right upper lobe abutting the major fissure as seen on recent chest CT study. This contains air bronchograms. It is surrounded by some interstitial and ground-glass opacity in the larger area of lung parenchymal adjacent. The infiltrates noted in the right lower lobe and lingula on the remote prior study have resolved. No other significant pulmonary nodule is seen. Vascular calcification is noted in the aorta its branches. There is some valvular calcification in the region of the aortic valve as well. There are granulomatous calcifications in the left lower lobe medially. These are unchanged from prior studies. There is a pre carinal lymph node measuring 10 x 25 by 15 mm. There are 2 normal-sized lymph nodes in the aortopulmonary window region of the mediastinum. No definite adenopathy. Granulomatous calcifications are seen scattered in the spleen. Visualized upper abdominal structures are unremarkable otherwise. Normal adrenal glands. No extra thoracic mass or adenopathy. No bony destructive lesion is seen. There is a right shoulder arthroplasty. IMPRESSION: Suspicious 2.6 cm right upper lobe pulmonary nodule with surrounding ground-glass opacity and interstitial disease. No definite evidence of adenopathy. <Electronically signed by Mansoor Trevizo > 03/02/21 [id number]
== END ==
LOC: M RAD 16:26
PROVIDERS: ATTEND Internal Medicine Pulmonary Disease
DX: R91.8 Other nonspecific abnormal finding of lung field (principal); J84.10 Pulmonary fibrosis, unspecified; I70.0 Atherosclerosis of aorta

== ENCOUNTER → 2021-03-09 | Outpatient (CLI) | payer MEDICARE | LOC: M LABSMTC 12:24 | PROVIDERS: ATTEND Anesthesiology | DX: Z01.812 Encounter for preprocedural laboratory examination (principal); Z20.822 Contact with and (suspected) exposure to COVID-19 ==

== ENCOUNTER → 2021-03-11 | Outpatient (CLI) | payer MEDICARE ==
[~2021-03-11] MED LIST changes: +ANOR1AER IN; +FAMO20TA PO; +FLAX100016 PO; +FLON1SPR; +NIAC500T17 PO; +NOXI1TAB PO; +PRESCAP PO; +TIZA4CAP6 PO
[2021-03-11 16:27] LABS: BASO # 0.1 10^3/uL (0.0-0.2); BASO % 0.8 % (0.0-1.0); EOS # 0.1 10^3/uL (0.0-0.5); EOS % 1.9 % (0.0-3.0); HEMATOCRIT 38.2 % (42.0-52.0); HEMOGLOBIN 12.6 g/dl (13.5-17.5); LYMPH # 1.8 10^3/uL (1.5-5.0); MEAN CORPUSCULAR HEMOGLOBIN 34.3 pg (27.0-33.0); MEAN CORPUSCULAR VOLUME 104.1 fl (80.0-96.0); MONO # 0.7 10^3/uL (0.0-0.8); MONO % 8.7 % (2.0-8.0); NEUTROPHILS # 4.8 10^3/uL (1.5-8.5); NEUTROPHILS % 64.2 % (36.0-66.0); PLATELET COUNT, AUTOMATED 222 10^3/uL (150-450); RED BLOOD COUNT 3.67 10^6/uL (4.30-6.10); WHITE BLOOD COUNT 7.5 10^3/uL (4.0-10.0)
[2021-03-11 16:40] LABS: INR 0.96
[2021-03-11 16:41] LABS: PARTIAL THROMBOPLASTIN TIME 42.7 SECONDS (24.2-38.5)
[2021-03-11 16:47] LABS: BLOOD UREA NITROGEN 17 MG/DL (7-18); CALCIUM LEVEL 9.2 MG/DL (8.8-10.2); CARBON DIOXIDE LEVEL 23 MEQ/L (21-32); CHLORIDE LEVEL 111 MEQ/L (98-107); CREATININE FOR GFR 0.88 MG/DL (0.70-1.30); GLOMERULAR FILTRATION RATE > 60.0 (>42); GLUCOSE, FASTING 131 MG/DL (70-100); POTASSIUM SERUM 4.5 MEQ/L (3.5-5.1); RHEUMATOID FACTOR QUANT < 10.0 IU/ML (<15.0); SODIUM LEVEL 141 MEQ/L (136-145)
== END ==
LOC: M LAB 14:56
PROVIDERS: ATTEND Internal Medicine Pulmonary Disease
DX: R91.8 Other nonspecific abnormal finding of lung field (principal)

== ENCOUNTER 2021-03-14 06:03 | Day surgery (SDC) | payer MEDICARE ==
[~2021-03-14] VITALS: Ht 175.3 cm; Wt 81.6 kg
[2021-03-14] MEDS ORDERED: ePHEDrine SULFATE 25 MG/5 ML(5MG/ML) SYRINGE ONE (06:04)
[2021-03-14] MEDS ORDERED: PHENYLephrine 500MCG 5ML (100MCG/ML) SYRINGE ONE (06:04)
[2021-03-14] MEDS ORDERED: LR 1,000 ML IV ONE (06:15)
[2021-03-14] MEDS ORDERED: LIDOCAINE 4% INJ 5ML AMP INH ONE (06:15)
[2021-03-14] MEDS ORDERED: ALBUTEROL SULFATE 2.5 MG/0.5 ML INH NEB SOLN INH ONE ×2 (06:15→09:20)
[2021-03-14] MEDS ORDERED: LIDOCAINE 2% 100MG/5ML SDV (FOR ANES.) As Ordered ONE (07:09)
[2021-03-14] MEDS ORDERED: MIDAZOLAM INJ 2MG/2ML VIAL (J2250 PER 1MG) As Ordered ONE (07:09)
[2021-03-14] MEDS ORDERED: propofoL 200 MG/20 ML VIAL As Ordered ONE (07:09)
[2021-03-14] MEDS ORDERED: ROCURONIUM BROMIDE 50 MG/5 ML VIAL As Ordered ONE (07:09)
[2021-03-14] MEDS ORDERED: fentaNYL 100 MCG/2 ML INJECTION (J3010) As Ordered ONE ×2 (07:10→08:28)
[2021-03-14] MEDS ORDERED: THROMBIN SOLN 5,000 UNITS VIAL As Ordered ONE (07:13)
[2021-03-14] MEDS ORDERED: CETACAINE SPRAY 5GM As Ordered ONE (07:13)
[2021-03-14] MEDS ORDERED: EPINEPHrine 1MG/10ML SYRINGE 1.5IN As Ordered ONE (07:13)
[2021-03-14] MEDS ORDERED: LIDOCAINE 1% SDV 30ML VIAL As Ordered ONE (07:13)
[2021-03-14] MEDS ORDERED: KETOROLAC 60MG 2ML VIAL As Ordered ONE (08:02)
[2021-03-14] MEDS ORDERED: ONDANSETRON 4MG/2ML VIAL As Ordered ONE (08:02)
[2021-03-14] MEDS ORDERED: SUGAMMADEX SODIUM 500 MG/5 ML VIAL (BRIDION) As Ordered ONE (08:02)
[2021-03-14] MEDS ORDERED: HYDROMORPHONE HCL 0.5 MG/ 0.5 ML SYRINGE (J1170 PER 1) IV PRN (09:05)
[2021-03-14] MEDS ORDERED: fentaNYL 100 MCG/2 ML INJECTION (J3010) IV PRN (09:05)
[2021-03-14] MEDS ORDERED: oxyCODONE 5MG TAB PO PRN (09:05)
[2021-03-14] MEDS ORDERED: ONDANSETRON 4MG/2ML VIAL IV PRN (09:05)
[2021-03-14] MEDS ORDERED: LR 1,000 ML IV SCH (09:05)
--- NOTE | 2021-03-14 09:07 | ROOR ---
Patient Name: Mynor Dong Procedure Date: 03/14/2021 7:24 AM Date of : 1950 Admit Type: Outpatient Age: 71 Note Status: Finalized Attending MD: Honey Stanford MD Procedure: Bronchoscopy Indications: Right upper lobe nodule Providers: Honey Stanford MD (Doctor), Marc Moore DO (1st Assisting Doctor) Referring MD: Misael Patel MD (Referring MD) Requesting Physician: Medicines: Lidocaine 4% via nebulizer with Albuterol 2.5 mg, General Anesthesia, Epinephrine 1 mg/10 mL topical 1 mL, Cetacaine topical Complications: No immediate complications. Estimated blood loss: Minimal Procedure: Pre-Anesthesia Assessment: - Prior to the procedure, a History and Physical was performed, and patient medications and allergies were reviewed. The patient's tolerance of previous anesthesia was also reviewed. The risks and benefits of the procedure and the sedation options and risks were discussed with the patient. All questions were answered, and informed consent was obtained. Prior Anticoagulants: The patient has taken Pradaxa (dabigatran), last dose was 5 days prior to procedure. ASA Grade Assessment: III - A patient with severe systemic disease. After reviewing the risks and benefits, the patient was deemed in satisfactory condition to undergo the procedure. - Patient identification and proposed procedure were verified prior to the procedure by the physician, the nurse, the anesthesiologist, the welfare project manager and the facility environmental technician. The procedure was verified in the procedure room. The Bronchoscope was introduced through the mouth, via the endotracheal tube (the patient was intubated for the procedure) and advanced to the tracheobronchial tree of both lungs. The procedure was accomplished without difficulty. The patient tolerated the procedure well. Findings: The endotracheal tube is in good position. The visualized portion of the trachea is of normal caliber. The peace is sharp. The tracheobronchial tree was examined to at least the first subsegmental level. Bronchial mucosa and anatomy are normal; there was scattered mucosal pitting and webbing noted throughout and thick clear mucoid secretions. The right upper lobe had anatomic variant with two segmental bronchial divisions. There was no endobronchial lesions seen but tortuous airway in right upper lobe apico-anterior subsegmental bronchus with some edematous mucosa. [employer] Robotic Electromagnetic navigation bronchoscopy was performed. The CT scan was used for planning purposes. A virtual bronchoscopic image was generated using the planning software. The target in the anterior segment of the right upper lobe was marked. A nodule approx 2.5 cm in size was found and a pathway was created. The robotic navigation phase was then begun to locate the target lesion(s). Positioning off-center (in relation to the lesion) was confirmed using the Olympus radial probe US catheter. Fluoroscopy guided transbronchial brushings of a nodule were obtained in the anterior segment of the right upper lobe with a cytology brush and also with a microbiology brush and sent for routine cytology and microbiology. Transbronchial brushing technique was selected because the sampling site was not visible endoscopically. Transbronchial biopsies of a nodule were performed in the anterior segment of the right upper lobe using forceps and sent for histopathology examination. The procedure was guided by fluoroscopy. Transbronchial biopsy technique was selected because the sampling site was not visible endoscopically. Fiducial marker placement was performed. Once the target lesion was identified, two markers were deployed in and around the lesion 3 mm apart in the anterior segment of the right upper lobe. An endobronchial ultrasound endoscope was utilized in order to assist with fine needle aspiration in the right paratracheal area. Transbronchial needle aspirations of a lymph node were performed in the right paratracheal area using an Olympus EBUS-TBNA 21 gauge needle and sent for routine cytology. The procedure was guided by ultrasound. Impression: - Right upper lobe nodule - The airway examination was normal. - Robotic Electromagnetic navigation bronchoscopy was performed. - Transbronchial brushings were obtained. - Transbronchial lung biopsies were performed. - Fiducial markers were deployed. - Endobronchial ultrasound was performed. - A transbronchial needle aspiration was performed. Recommendation: - Await test results. Procedure Code(s): --- Professional --- 69531, Bronchoscopy, rigid or flexible, including fluoroscopic guidance, when performed; with placement of fiducial markers, single or multiple 57810, Bronchoscopy, rigid or flexible, including fluoroscopic guidance, when performed; with transbronchial needle aspiration biopsy(s), trachea, main stem and/or lobar bronchus(i) 00528, Bronchoscopy, rigid or flexible, including fluoroscopic guidance, when performed; with transbronchial lung biopsy(s), single lobe 14560, Bronchoscopy, rigid or flexible, including fluoroscopic guidance, when performed; with brushing or protected brushings 78707, Bronchoscopy, rigid or flexible, including fluoroscopic guidance, when performed; with computer-assisted, image-guided navigation (List separately in addition to code for primary procedure[s]) 29285, Bronchoscopy, rigid or flexible, including fluoroscopic guidance, when performed; with transendoscopic endobronchial ultrasound (EBUS) during bronchoscopic diagnostic or therapeutic intervention(s) for peripheral lesion(s) (List separately in addition to code for primary procedure[s]) CPT copyright 2019 [employer]. All rights reserved. The codes documented in this report are preliminary and upon inseamer review may be revised to meet current compliance requirements. Attending Participation: I personally performed the entire procedure. Honey Stanford MD 03/14/2021 9:07:32 AM Marc Moore DO Number of Addenda: 0 Note Initiated On: 03/14/2021 7:24 AM
--- NOTE | 2021-03-14 09:23 | REP ---
INDICATION: s/p R upper lobe bronch with biopsies. COMPARISON: CT 03/02/2021, radiographs 12/17/2017. TECHNIQUE: Single portable AP view of the chest was performed. FINDINGS: There is no pneumothorax status post chronic bronchoscopy. Two metallic clips project in the right parahilar region with ill-defined parenchymal opacity also visualized.No other acute findings are seen in either lung. The heart is not significantly enlarged. There is calcification of the thoracic aorta. There are degenerative changes of the spine. There is a right shoulder prosthesis. IMPRESSION: No pneumothorax status post bronchoscopy. <Electronically signed by Maury Hernandez > 03/14/21 0919
--- NOTE | 2021-03-14 09:39 | REP ---
INDICATION: RIGHT UPPER LOBE ABNORMALITY. COMPARISON: None. TECHNIQUE: Multiple C-arm views right lung. FINDINGS: Bronchoscope overlies the right mid lung zone. Final image shows 2 biopsy clips in this region. IMPRESSION: 220 seconds fluoroscopy time utilized. <Electronically signed by Maury Hernandez > 03/14/21 0936
[2021-03-14] MEDS: ePHEDrine SULFATE 25 MG/5 ML(5MG/ML) SYRINGE IV PRN ×2 (10:31→10:50)
[2021-03-14] MEDS ORDERED: LR 200 ML IV ONE (10:55)
[2021-03-14] MEDS ORDERED: PHENYLephrine 500MCG 5ML (100MCG/ML) SYRINGE IV PRN (10:55)
[2021-03-14 12:10] VITALS: BP 102/54
== END 2021-03-14 12:25 | disposition home or self-care (01) ==
LOC: M SDC 06:03
PROVIDERS: ATTEND Internal Medicine Pulmonary Disease
DX: C34.11 Malignant neoplasm of upper lobe, right bronchus or lung (principal); I48.91 Unspecified atrial fibrillation; I25.10 Atherosclerotic heart disease of native coronary artery without angina pectoris; I10 Essential (primary) hypertension; E78.5 Hyperlipidemia, unspecified; E11.9 Type 2 diabetes mellitus without complications; J44.9 Chronic obstructive pulmonary disease, unspecified; F17.218 Nicotine dependence, cigarettes, with other nicotine-induced disorders; Z79.84 Long term (current) use of oral hypoglycemic drugs; Z79.899 Other long term (current) drug therapy
CPT/HCPCS: 31623; 31626; 31627; 31628; 31629; 31654; 71045; 76000; 87071; 88104; 88173; 88305; 88342; A4648; J1885; J2250; J2370; J2405; J3010; S2900

== ENCOUNTER → 2021-03-23 | Outpatient (CLI) | payer MEDICARE ==
--- NOTE | 2021-03-23 11:45 | PFTRPT ---
Height: 69.00 Inches Weight: 178.00 Lbs BSA: 1.97 Diagnosis: J44.9 DATE: 03/23/2021 ORDERED BY: Honey Stanford MD Pre and post bronchodilator studies have excellent technical quality. Forced vital capacity is reduced. FEV1 is in proportion. Obstructive index is therefore normal. Expiratory limit of the flow-volume loop does suggest flow rate limitation, however. No significant bronchodilator response is identified. Total lung capacity is normal. Residual volume suggests air trapping. Diffusing capacity is significantly reduced, but does correct for alveolar volume. Hemoglobin is acceptable at 16.5. Airway resistance and conductance are normal. IMPRESSION: Suspect some degree of obstructive ventilatory impairment with concomitant air trapping. Please correlate clinically. MTDD
== END ==
LOC: M CARPUL 11:11
PROVIDERS: ATTEND Internal Medicine Pulmonary Disease
DX: J44.9 Chronic obstructive pulmonary disease, unspecified (principal)

== ENCOUNTER → 2021-04-14 | Outpatient (CLI) | payer MEDICARE ==
[~2021-04-14] MED LIST changes: +CHAN1PAK11 PO
== END ==
LOC: M LABSMTC 12:23
PROVIDERS: ATTEND Anesthesiology
DX: Z01.812 Encounter for preprocedural laboratory examination (principal); Z20.822 Contact with and (suspected) exposure to COVID-19

== ENCOUNTER → 2021-04-14 | Outpatient (CLI) | payer MEDICARE ==
[2021-04-14 13:53] LABS: HEMATOCRIT 41.3 % (42.0-52.0); HEMOGLOBIN 14.1 g/dl (13.5-17.5); MEAN CORPUSCULAR HEMOGLOBIN 34.7 pg (27.0-33.0); MEAN CORPUSCULAR HGB CONC 34.1 g/dl (32.0-36.5); MEAN CORPUSCULAR VOLUME 101.7 fl (80.0-96.0); PLATELET COUNT, AUTOMATED 197 10^3/uL (150-450); RED BLOOD COUNT 4.06 10^6/uL (4.30-6.10); WHITE BLOOD COUNT 9.5 10^3/uL (4.0-10.0)
[2021-04-14 13:57] LABS: ABG BASE EXCESS -2.1 (-2.0-2.0); ABG HCO3 22.4 MEQ/L (22.0-26.0); ABG O2 SATURATION 95.9 % (95.0-99.0); ABG PARTIAL PRESSURE CO2 37.5 mmHg (35.0-45.0); ABG PARTIAL PRESSURE O2 81.6 mmHg (75.0-100.0); ABG STANDARD HCO3 22.7 MEQ/L (22.0-26.0); ABG TOTAL CO2 23.5 MEQ/L (23.0-31.0); ABG pH (ARTERIAL) 7.394 UNITS (7.350-7.450)
[2021-04-14 14:02] LABS: APPEARANCE, URINE CLEAR (CLEAR); BACTERIA, URINE AUTO NEGATIVE (NEGATIVE); BILIRUBIN, URINE AUTO NEGATIVE (NEGATIVE); BLOOD, URINE BLOOD NEGATIVE (NEGATIVE); COLOR, URINE YELLOW (YELLOW); GLUCOSE, URINE (UA) AUTO NEGATIVE (NEGATIVE); KETONE, URINE AUTO NEGATIVE (NEGATIVE); LEUKOCYTE ESTERASE, URINE AUTO NEGATIVE (NEGATIVE); MUCUS, URINE SMALL (NEGATIVE); NITRITE, URINE AUTO NEGATIVE (NEGATIVE); PROTEIN, URINE AUTO NEGATIVE (NEGATIVE); RBC, URINE AUTO 12 /HPF (0-3); SPECIFIC GRAVITY URINE AUTO 1.019 (1.002-1.035); SQUAMOUS EPITHELIAL CELL UR AU 0 /HPF (0-6); UROBILINOGEN, URINE AUTO 0.2 mg/dL (0.0-2.0); WBC, URINE AUTO 1 /HPF (0-3)
[2021-04-14 14:03] LABS: INR 0.96
[2021-04-14 14:05] LABS: PARTIAL THROMBOPLASTIN TIME 46.2 SECONDS (24.2-38.5)
[2021-04-14 14:18] LABS: BLOOD UREA NITROGEN 26 MG/DL (7-18); CALCIUM LEVEL 9.2 MG/DL (8.8-10.2); CARBON DIOXIDE LEVEL 23 MEQ/L (21-32); CHLORIDE LEVEL 106 MEQ/L (98-107); CREATININE FOR GFR 1.01 MG/DL (0.70-1.30); GLOMERULAR FILTRATION RATE > 60.0 (>42); GLUCOSE, FASTING 99 MG/DL (70-100); POTASSIUM SERUM 4.7 MEQ/L (3.5-5.1); SODIUM LEVEL 136 MEQ/L (136-145)
--- NOTE | 2021-04-14 15:47 | REP ---
INDICATION: MEDIASTINAL LYMPHADENOPTHY. COMPARISON: Multiple the latest a portable examination of 03/14/2021 FINDINGS: The cardiomediastinal silhouette lung mitchell are essentially unchanged when the technical differences between the examinations are taken into consideration. A small parenchymal density is again seen adjacent to metallic clips. This was better imaged on the prior chest CT of 03/02/2021. There are no new abnormal lung field opacities. The pleural angles are sharp. There is no significant change in appearance of the imaged osseous structures. IMPRESSION: There is no acute cardiopulmonary disease. Findings as described above. Consider chest CT so as it can be compared to the prior chest CT of 03/02/2021 if clinically relevant. <Electronically signed by Pio Servin > 04/14/21 [id number]
--- NOTE | 2021-04-15 10:22 | ECGEPIP ---
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
== END ==
LOC: M ADMPAT 12:58
PROVIDERS: ATTEND Thoracic Surgery (Cardiothoracic Vascular Surgery)
DX: Z01.812 Encounter for preprocedural laboratory examination (principal); Z20.822 Contact with and (suspected) exposure to COVID-19; R22.2 Localized swelling, mass and lump, trunk
CPT/HCPCS: 36415; 71046; 80048; 81001; 82803; 85027; 85610; 85730; 93005; U0003

== ENCOUNTER 2021-04-18 07:58 | Day surgery (SDC) | payer MEDICARE ==
[~2021-04-18] VITALS: Ht 175.3 cm; Wt 81.2 kg
[~2021-04-18 07:58] MED LIST changes: -CHAN1PAK11 PO; +LR 1,000 ML IV ONE; +MUPIROCIN 2% OINT 22 GM TUBE TOP ONE; +ceFAZolin SOD 2 GM in IV 1 EA IV ONE
[2021-04-18] MEDS ORDERED: CHAN1PAK11 PO (08:34)
[2021-04-18] MEDS ORDERED: fentaNYL 250 MCG/5 ML INJECTION (J3010) As Ordered ONE (08:37)
[2021-04-18] MEDS ORDERED: ROCURONIUM BROMIDE 50 MG/5 ML VIAL As Ordered ONE ×2 (08:37→11:23)
[2021-04-18] MEDS ORDERED: propofoL 200 MG/20 ML VIAL As Ordered ONE (08:37)
[2021-04-18] MEDS ORDERED: LIDOCAINE 2% 100MG/5ML SDV (FOR ANES.) As Ordered ONE (08:37)
[2021-04-18] MEDS ORDERED: MIDAZOLAM INJ 2MG/2ML VIAL (J2250 PER 1MG) As Ordered ONE (08:38)
[2021-04-18] MEDS ORDERED: EPINEPHrine 1MG/10ML SYRINGE 1.5IN As Ordered ONE (09:57)
[2021-04-18] MEDS ORDERED: THROMBIN SOLN 20,000 UNITS KIT As Ordered ONE ×2 (09:57→12:33)
[2021-04-18] MEDS ORDERED: CETACAINE SPRAY 5GM As Ordered ONE (09:57)
[2021-04-18] MEDS ORDERED: BUPIVACAINE LIPOSOME/PF 1.3% 20ML VIAL (13.3MG/ML)(EXPAREL)(C9290 PER1MG) As Ordered ONE (09:58)
[2021-04-18] MEDS ORDERED: MUPIROCIN 2% OINT 22 GM TUBE As Ordered ONE (10:31)
[2021-04-18] MEDS ORDERED: PHENYLephrine 500MCG 5ML (100MCG/ML) SYRINGE As Ordered ONE (11:09)
[2021-04-18] MEDS ORDERED: dexameTHASONE 4 MG/ML 1ML VIAL (J1100 PER 1MG) As Ordered ONE (11:20)
[2021-04-18] MEDS ORDERED: ONDANSETRON 4MG/2ML VIAL As Ordered ONE (11:35)
[2021-04-18] MEDS ORDERED: SUGAMMADEX SODIUM 500 MG/5 ML VIAL (BRIDION) As Ordered ONE (11:36)
[2021-04-18] MEDS ORDERED: ACETAMINOPHEN 1000MG 100ML IV BTL (OFIRMEV) (J0131 PER 10MG) As Ordered ONE (11:41)
[2021-04-18] MEDS ORDERED: ePHEDrine SULFATE 25 MG/5 ML(5MG/ML) SYRINGE As Ordered ONE (12:11)
[2021-04-18] MEDS ORDERED: KETOROLAC 60MG 2ML VIAL As Ordered ONE (12:13)
[2021-04-18] MEDS ORDERED: oxyCODONE 5MG TAB PO PRN (13:10)
[2021-04-18] MEDS ORDERED: LR 1,000 ML IV SCH (13:10)
[2021-04-18] MEDS ORDERED: fentaNYL 100 MCG/2 ML INJECTION (J3010) IV PRN (13:10)
[2021-04-18] MEDS ORDERED: METOCLOPRAMIDE INJ 10MG/2ML VIAL (J2765 PER 1) IV PRN (13:10)
[2021-04-18] MEDS ORDERED: ONDANSETRON 4MG/2ML VIAL IV PRN (13:10)
--- NOTE | 2021-04-18 13:40 | REP ---
INDICATION: POST OP IN PACU. COMPARISON: None. FINDINGS: The technique utilized in obtaining the radiograph has magnified the cardiac silhouette and accentuated the interstitial markings. The superior mediastinal structures are midline. The cardiac silhouette is unremarkable in size, shape, and position. The diaphragmatic surfaces of the lungs are regular, and the costophrenic angles are clear. The lung mitchell are essentially unchanged. The interstitial markings are accentuated by technique particularly in the lung bases. No acute patchy parenchymal opacities or pleural effusions have developed. There is no change in the osseous structures. IMPRESSION: There is no acute cardiopulmonary disease. Findings and technique as described above. Consider PA and lateral views of the chest if clinically relevant. <Electronically signed by Pio Servin > 04/18/21 [id number]
--- NOTE | 2021-04-18 17:40 | RO ---
OPERATIVE NOTE DATE OF OPERATION: 04/18/2021 PREPROCEDURE DIAGNOSIS: Lung cancer, mediastinal lymphadenopathy. POSTOPERATIVE DIAGNOSIS: Lung cancer, mediastinal lymphadenopathy. PROCEDURE: Mediastinoscopy, bronchoscopy. SURGEON: Ace Stinson MD RETAIL ADVERTISING ACCOUNT EXECUTIVE: ANESTHESIA: FINDINGS: Frozen section revealed the absence of tumor in the mediastinal node. The last sample I took resulted in increased bleeding from the bakari bed. This required time and patience to stop with pressure along with thrombin and Gelfoam. PROCEDURE: Under satisfactory general anesthesia, a bronchoscope was placed into the tracheobronchial tree. He had a normal branching tracheal anatomy and there were no new bronchial lesions. The patient was then positioned for a mediastinoscopy and a suprasternal notch incision was made. The incision was carried down through subcutaneous tissue and the strap muscles were divided in the midline. Pretracheal fascia was visually entered with the exploring finger to free up the innominate artery. The scope was then placed. The scope was placed all the way down to the bifurcation. Just anterior to the bifurcation, the lymph node was found. This sampled and sent for frozen section which returned negative for tumor. Additional samples were taken for permanent section. The last sample resulted in increased venous bleeding. I had difficulty isolating the bleeding point and could not cauterize it. Therefore, I packed it for a ten minute period, then followed by a 15 minute period with thrombin and Gelfoam. The packing came out just pink but the thrombin Gelfoam was white. I attempted some Tisseel which was injected. Upon using a suction, however, it was suctioned back out. I again packed the wound with Gelfoam and thrombin. The scope was withdrawn and the strap muscles were closed with running 3-0 Vicryl suture and the subcutaneous tissue closed with running 3-0 Vicryl suture. The skin was closed with running 4-0 Monocryl subcuticular suture. It should be noted that the patient had been on Pradaxa up until five days ago and in fact he had skin bleeders which were problematically stopped additionally. The patient will be kept in the recovery room for six hours to make sure there is no development of mediastinal hematoma.
[2021-04-18 19:00] VITALS: BP 109/58
== END 2021-04-18 19:00 | disposition home or self-care (01) ==
LOC: M SDC 07:58
PROVIDERS: ATTEND Thoracic Surgery (Cardiothoracic Vascular Surgery)
DX: R91.8 Other nonspecific abnormal finding of lung field (principal); I48.91 Unspecified atrial fibrillation; I10 Essential (primary) hypertension; K21.9 Gastro-esophageal reflux disease without esophagitis; I25.10 Atherosclerotic heart disease of native coronary artery without angina pectoris; E78.5 Hyperlipidemia, unspecified; I65.23 Occlusion and stenosis of bilateral carotid arteries; E11.9 Type 2 diabetes mellitus without complications; J44.9 Chronic obstructive pulmonary disease, unspecified; Z79.84 Long term (current) use of oral hypoglycemic drugs; Z79.899 Other long term (current) drug therapy; G47.33 Obstructive sleep apnea (adult) (pediatric); F17.218 Nicotine dependence, cigarettes, with other nicotine-induced disorders
CPT/HCPCS: 31622; 36415; 39401; 71045; 86850; 86900; 86901; 88305; 88307; 88331; C9290; J0131; J0690; J1100; J2250; J2370; J2405; J3010

== ENCOUNTER → 2021-05-05 | Outpatient (CLI) | payer MEDICARE ==
[~2021-05-05] MED LIST changes: +CHAN1PAK11 PO; -LR 1,000 ML IV ONE; -MUPIROCIN 2% OINT 22 GM TUBE TOP ONE; -ceFAZolin SOD 2 GM in IV 1 EA IV ONE
--- NOTE | 2021-05-05 12:16 | REP ---
INDICATION: MALIGNANT NEOPLAMS RT UPPER LOBE LUNG COPD COMPARISON: Multiple the latest 03/02/2021 TECHNIQUE: Standard helical technique without intravenous contrast administration FINDINGS: The mediastinum and pulmonary jesús are unchanged. There is a stable mildly enlarged lymph node in the aortic pulmonary window which has a short axis dimension of 1 cm. Other smaller stable mediastinal lymph nodes are again noted as well. No pleural or pericardial effusions have developed. There is no significant change in the appearance of the imaged upper abdomen or imaged osseous structures. Evaluation of the lung mitchell shows an increase in size in the spiculated mass density seen previously in the posterior segment of the right upper lobe which today measures 3.2 cm. This previously measured 2.7 cm. In addition, increased ground glass opacity has developed between the right major fissure and the fissure to the right middle lobe inferior to the spiculated lesion. IMPRESSION: 1. Right upper lobe mass lesion and related findings as described above. 2. Other finding as described above. 3. <Electronically signed by Pio Servin > 05/05/21 [id number]
== END ==
LOC: M PLAIMG 11:23
PROVIDERS: ATTEND Thoracic Surgery (Cardiothoracic Vascular Surgery)
DX: C34.11 Malignant neoplasm of upper lobe, right bronchus or lung (principal); J44.9 Chronic obstructive pulmonary disease, unspecified

== ENCOUNTER → 2021-05-14 | Outpatient (CLI) | payer MEDICARE | LOC: M LABSMTC 09:40 | PROVIDERS: ATTEND Anesthesiology | DX: Z01.818 Encounter for other preprocedural examination (principal); Z11.52 Encounter for screening for COVID-19 ==

== ENCOUNTER → 2021-05-16 | Outpatient (CLI) | payer MEDICARE ==
[2021-05-16 13:47] LABS: ABG BASE EXCESS -2.4 (-2.0-2.0); ABG HCO3 21.8 MEQ/L (22.0-26.0); ABG O2 SATURATION 95.9 % (95.0-99.0); ABG PARTIAL PRESSURE CO2 35.6 mmHg (35.0-45.0); ABG PARTIAL PRESSURE O2 82.7 mmHg (75.0-100.0); ABG STANDARD HCO3 22.4 MEQ/L (22.0-26.0); ABG TOTAL CO2 22.8 MEQ/L (23.0-31.0); ABG pH (ARTERIAL) 7.404 UNITS (7.350-7.450)
[2021-05-16 13:52] LABS: HEMATOCRIT 36.8 % (42.0-52.0); HEMOGLOBIN 12.4 g/dl (13.5-17.5); MEAN CORPUSCULAR HEMOGLOBIN 34.3 pg (27.0-33.0); MEAN CORPUSCULAR HGB CONC 33.7 g/dl (32.0-36.5); MEAN CORPUSCULAR VOLUME 101.9 fl (80.0-96.0); PLATELET COUNT, AUTOMATED 192 10^3/uL (150-450); RED BLOOD COUNT 3.61 10^6/uL (4.30-6.10)
[2021-05-16 14:02] LABS: APPEARANCE, URINE CLEAR (CLEAR); BACTERIA, URINE AUTO NEGATIVE (NEGATIVE); BILIRUBIN, URINE AUTO NEGATIVE (NEGATIVE); BLOOD, URINE BLOOD NEGATIVE (NEGATIVE); COLOR, URINE YELLOW (YELLOW); GLUCOSE, URINE (UA) AUTO NEGATIVE (NEGATIVE); KETONE, URINE AUTO NEGATIVE (NEGATIVE); LEUKOCYTE ESTERASE, URINE AUTO NEGATIVE (NEGATIVE); MUCUS, URINE SMALL (NEGATIVE); NITRITE, URINE AUTO NEGATIVE (NEGATIVE); PROTEIN, URINE AUTO NEGATIVE (NEGATIVE); RBC, URINE AUTO 2 /HPF (0-3); SPECIFIC GRAVITY URINE AUTO 1.021 (1.002-1.035); SQUAMOUS EPITHELIAL CELL UR AU 0 /HPF (0-6); UROBILINOGEN, URINE AUTO 0.2 mg/dL (0.0-2.0); WBC, URINE AUTO 1 /HPF (0-3)
[2021-05-16 14:07] LABS: INR 0.92; PROTHROMBIN TIME 12.6 SECONDS (12.5-14.3)
--- NOTE | 2021-05-16 14:08 | REP ---
INDICATION: PREOP. COMPARISON: Comparison chest x-ray April 18, 2021. TECHNIQUE: Two views.. FINDINGS: The lungs are symmetrically aerated and free of infiltrate. There are 2 fiducial markers projecting in the right perihilar region. Pleural angles are sharp. There are degenerative changes in the thoracic spine. A prosthetic right shoulder joint is noted. There is some hyperinflation. IMPRESSION: Hyperinflation. Fiducial markings in the right perihilar region. Otherwise no acute disease.. <Electronically signed by Mansoor Trevizo > 05/16/21 [id number]
[2021-05-16 14:16] LABS: BLOOD UREA NITROGEN 26 MG/DL (7-18); CALCIUM LEVEL 9.1 MG/DL (8.8-10.2); CARBON DIOXIDE LEVEL 24 MEQ/L (21-32); CHLORIDE LEVEL 109 MEQ/L (98-107); CREATININE FOR GFR 1.02 MG/DL (0.70-1.30); GLOMERULAR FILTRATION RATE > 60.0 (>42); GLUCOSE, FASTING 109 MG/DL (70-100); POTASSIUM SERUM 4.8 MEQ/L (3.5-5.1); SODIUM LEVEL 138 MEQ/L (136-145)
--- NOTE | 2021-05-16 20:56 | ECGEPIP ---
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
== END ==
LOC: M ADMPAT 13:12
PROVIDERS: ATTEND Thoracic Surgery (Cardiothoracic Vascular Surgery)
DX: Z11.52 Encounter for screening for COVID-19 (principal); Z79.01 Long term (current) use of anticoagulants

== ENCOUNTER 2021-05-19 07:43 | Inpatient (IN) | payer MEDICARE ==
[2021-05-19] VITALS (26 sets, daily range): BP systolic 102–123; BP diastolic 42–60
[~2021-05-19] VITALS: Ht 175.3 cm; Wt 84.2 kg
[~2021-05-19 07:43] MED LIST changes: +LR 1,000 ML IV ONE; +MIDAZOLAM INJ 2MG/2ML VIAL (J2250 PER 1MG) IV PRN; +fentaNYL 100 MCG/2 ML INJECTION (J3010) IV PRN
[2021-05-19] MEDS ORDERED: CETACAINE SPRAY 5GM As Ordered ONE (08:12)
[2021-05-19] MEDS ORDERED: ROCURONIUM BROMIDE 50 MG/5 ML VIAL As Ordered ONE ×4 (08:12→12:46)
[2021-05-19] MEDS ORDERED: LIDOCAINE 2% 100MG/5ML SDV (FOR ANES.) As Ordered ONE (08:12)
[2021-05-19] MEDS ORDERED: propofoL 200 MG/20 ML VIAL As Ordered ONE ×3 (08:12→15:02)
[2021-05-19] MEDS ORDERED: BUPIVACAINE HCL 0.5% 30 ML VIAL As Ordered ONE (08:12)
[2021-05-19] MEDS ORDERED: fentaNYL 100 MCG/2 ML INJECTION (J3010) As Ordered ONE ×3 (08:13→13:36)
[2021-05-19] MEDS ORDERED: MIDAZOLAM INJ 2MG/2ML VIAL (J2250 PER 1MG) As Ordered ONE (08:13)
[2021-05-19] MEDS ORDERED: dexameTHASONE 4 MG/ML 1ML VIAL (J1100 PER 1MG) As Ordered ONE (08:13)
[2021-05-19] MEDS ORDERED: BUPIVACAINE LIPOSOME/PF 1.3% 20ML VIAL (13.3MG/ML)(EXPAREL)(C9290 PER1MG) As Ordered ONE (08:13)
[2021-05-19] MEDS ORDERED: ONDANSETRON 4MG/2ML VIAL As Ordered ONE (08:13)
[2021-05-19] MEDS ORDERED: LIDOCAINE 1% MDV 20ML VIAL XX ONE (08:20)
[2021-05-19] MEDS ORDERED: BUPIVACAINE HCL 0.25% 30ML VIAL As Ordered ONE (08:23)
[2021-05-19] MEDS ORDERED: ceFAZolin SOD 2 GM in IV 1 EA IV ONE (08:35)
[2021-05-19] MEDS ORDERED: MUPIROCIN 2% OINT 22 GM TUBE TOP SCH (08:35)
[2021-05-19] MEDS ORDERED: LR 1,000 ML IV ONE (08:50)
[2021-05-19] MEDS ORDERED: SEVOFLURANE INHAL SOLN 250 ML BTL As Ordered ONE (08:52)
[2021-05-19] MEDS ORDERED: BUPIVACAINE HCL 0.5% 10ML VIAL As Ordered ONE (08:54)
[2021-05-19] MEDS ORDERED: LACRILUBE (AKWA TEARS) OPHTH OINT 3.5 GM As Ordered ONE (09:23)
[2021-05-19] MEDS ORDERED: ePHEDrine SULFATE 25 MG/5 ML(5MG/ML) SYRINGE As Ordered ONE ×2 (11:01→11:24)
[2021-05-19] MEDS ORDERED: SUGAMMADEX SODIUM 500 MG/5 ML VIAL (BRIDION) As Ordered ONE (13:40)
[2021-05-19] MEDS ORDERED: ACETAMINOPHEN 1000MG 100ML IV BTL (OFIRMEV) (J0131 PER 10MG) As Ordered ONE (13:40)
[2021-05-19] MEDS ORDERED: ONDANSETRON 4MG/2ML VIAL IV PRN ×3 (14:05→16:55)
[2021-05-19] MEDS ORDERED: METOCLOPRAMIDE INJ 10MG/2ML VIAL (J2765 PER 1) IV PRN ×2 (14:05→16:55)
[2021-05-19] MEDS ORDERED: WALLBOXKEY XX PRN (14:05)
[2021-05-19] MEDS ORDERED: diphenhydrAMINE 50MG/ML VIAL (J1200) IV PRN (14:05)
[2021-05-19] MEDS ORDERED: EPIDURAL/PCA KEYS XX PRN (14:05)
[2021-05-19] MEDS ORDERED: NALOXONE INJ 0.4MG/1ML VIAL (J2310 PER 1MG) IV PRN (14:05)
[2021-05-19] MEDS: FENTANYL/BUPIVACAINE/NACL BAG 250 ML EPIDURAL SCH (15:00)
[2021-05-19] MEDS ORDERED: NORCO, ANEXSIA 5/325MG TABLET (HYDROcodone/ACETAMINOPHEN) PO PRN (15:15)
[2021-05-19] MEDS ORDERED: DEXTROSE 50% 50 ML SYRINGE IV PRN (15:15)
[2021-05-19] MEDS ORDERED: LEVALBUTEROL 1.25 MG/0.5 ML CONCENTRATE NEB NEB PRN (15:15)
[2021-05-19] MEDS ORDERED: GLUCOSE 4GM CHEW TABLET PO PRN (15:15)
[2021-05-19] MEDS ORDERED: BISACODYL 10 MG SUPP PR PRN (15:15)
[2021-05-19] MEDS ORDERED: GLUCAGON INJ 1MG VIAL SC PRN (15:15)
[2021-05-19] MEDS: KCL 20MEQ IN D5/NS 1000ML 1,000 ML IV SCH (15:15)
[2021-05-19 15:57] LABS: ABG BASE EXCESS -4.3 (-2.0-2.0); ABG O2 SATURATION 95.9 % (95.0-99.0); ABG PARTIAL PRESSURE CO2 39.8 mmHg (35.0-45.0); ABG PARTIAL PRESSURE O2 88.5 mmHg (75.0-100.0); ABG STANDARD HCO3 20.8 MEQ/L (22.0-26.0); ABG TOTAL CO2 22.3 MEQ/L (23.0-31.0); ABG pH (ARTERIAL) 7.341 UNITS (7.350-7.450)
[2021-05-19] MEDS: fentaNYL 100 MCG/2 ML INJECTION (J3010) IV PRN ×4 (16:02→16:40)
[2021-05-19 16:07] LABS: BASO % 0.2 % (0.0-1.0); EOS % 0.2 % (0.0-3.0); HEMATOCRIT 34.3 % (42.0-52.0); HEMOGLOBIN 11.6 g/dl (13.5-17.5); LYMPH # 0.6 10^3/uL (1.5-5.0); LYMPH % 4.3 % (24.0-44.0); MEAN CORPUSCULAR HEMOGLOBIN 34.3 pg (27.0-33.0); MEAN CORPUSCULAR HGB CONC 33.8 g/dl (32.0-36.5); MEAN CORPUSCULAR VOLUME 101.5 fl (80.0-96.0); MONO # 0.4 10^3/uL (0.0-0.8); MONO % 3.1 % (2.0-8.0); NEUTROPHILS # 11.8 10^3/uL (1.5-8.5); NEUTROPHILS % 91.8 % (36.0-66.0); PLATELET COUNT, AUTOMATED 174 10^3/uL (150-450); RED BLOOD COUNT 3.38 10^6/uL (4.30-6.10); WHITE BLOOD COUNT 12.8 10^3/uL (4.0-10.0)
--- NOTE | 2021-05-19 16:18 | REP ---
INDICATION: s/pRULobectomy. COMPARISON: 05/16/2021 the latest prior TECHNIQUE: Portable FINDINGS: The technique utilized in obtaining the radiograph has magnified the cardiac silhouette and accentuated the interstitial markings. The patient is status post right upper lobectomy. Two thoracotomy tubes are seen in the right hemithorax. There is a small right-sided pneumothorax. There is an additional curvilinear density seen over the left upper chest. I do not know what this represents and I have been given no information or history. No focal lung opacities are identified. The pleural angles remain sharp. The heart is not enlarged. The osseous structures are within normal limits. Note is again made of a right shoulder prosthetic device. IMPRESSION: Right-sided pneumothorax and thoracotomy tubes as described above. Other findings of uncertain etiology as described above. I have left an arrow and question keita pointing to the curvilinear density indicated above. Please correlate clinically. <Electronically signed by Pio Servin > 05/19/21 [id number]
[2021-05-19 16:27] LABS: BLOOD UREA NITROGEN 19 MG/DL (7-18); CALCIUM LEVEL 8.5 MG/DL (8.8-10.2); CARBON DIOXIDE LEVEL 24 MEQ/L (21-32); CHLORIDE LEVEL 111 MEQ/L (98-107); CREATININE FOR GFR 0.96 MG/DL (0.70-1.30); GLOMERULAR FILTRATION RATE > 60.0 (>42); GLUCOSE, FASTING 130 MG/DL (70-100); POTASSIUM SERUM 4.6 MEQ/L (3.5-5.1); SODIUM LEVEL 142 MEQ/L (136-145)
[2021-05-19] MEDS ORDERED: oxyCODONE 5MG TAB PO PRN (16:55)
[2021-05-19] MEDS ORDERED: LR 1,000 ML IV SCH (16:55)
[2021-05-19] MEDS: metFORMIN (GLUCOPHAGE) 500MG TAB PO SCH (18:00)
[2021-05-19] MEDS: ceFAZolin SOD 1 GM in D5W MINI-BAG PLUS 50 ML IV SCH (18:29)
[2021-05-19] MEDS: KETOROLAC 30 MG/ML 1ML VIAL IV SCH ×2 (18:29→23:40)
[2021-05-19] MEDS: HumaLOG INSULIN (NovoLOG) PER UNIT SC SCH ×2 (18:30→23:41)
[2021-05-19] MEDS: FLUoxetine 10 MG CAP PO SCH (20:10)
[2021-05-19] MEDS: DOCUSATE SODIUM 100MG CAPSULE PO SCH (20:10)
[2021-05-19] MEDS: GABAPENTIN 300 MG CAP PO SCH (20:11)
[2021-05-19] MEDS: ATORVASTATIN 20 MG TAB PO SCH (20:11)
[2021-05-19] MEDS: OCUVITE 1 TAB PO SCH (20:11)
[2021-05-19] MEDS: LEVALBUTEROL 1.25 MG/0.5 ML CONCENTRATE NEB NEB SCH (20:12)
[2021-05-20] VITALS (39 sets, daily range): BP systolic 86–143; BP diastolic 44–68
[2021-05-20] MEDS: LEVALBUTEROL 1.25 MG/0.5 ML CONCENTRATE NEB NEB SCH ×4 (01:59→19:32)
[2021-05-20] MEDS: ceFAZolin SOD 1 GM in D5W MINI-BAG PLUS 50 ML IV SCH ×3 (02:11→17:49)
[2021-05-20] MEDS: KCL 20MEQ IN D5/NS 1000ML 1,000 ML IV SCH (04:27)
[2021-05-20] MEDS: KETOROLAC 30 MG/ML 1ML VIAL IV SCH ×4 (04:28→23:07)
[2021-05-20 04:52] LABS: BASO % 0.2 % (0.0-1.0); EOS % 0.4 % (0.0-3.0); HEMOGLOBIN 10.6 g/dl (13.5-17.5); LYMPH # 1.6 10^3/uL (1.5-5.0); LYMPH % 14.6 % (24.0-44.0); MEAN CORPUSCULAR HEMOGLOBIN 34.9 pg (27.0-33.0); MEAN CORPUSCULAR HGB CONC 34.2 g/dl (32.0-36.5); MONO # 0.9 10^3/uL (0.0-0.8); MONO % 7.9 % (2.0-8.0); NEUTROPHILS # 8.5 10^3/uL (1.5-8.5); NEUTROPHILS % 76.4 % (36.0-66.0); PLATELET COUNT, AUTOMATED 156 10^3/uL (150-450); RED BLOOD COUNT 3.04 10^6/uL (4.30-6.10); WHITE BLOOD COUNT 11.1 10^3/uL (4.0-10.0)
[2021-05-20 05:18] LABS: BLOOD UREA NITROGEN 22 MG/DL (7-18); CALCIUM LEVEL 8.1 MG/DL (8.8-10.2); CARBON DIOXIDE LEVEL 23 MEQ/L (21-32); CHLORIDE LEVEL 111 MEQ/L (98-107); CREATININE FOR GFR 1.11 MG/DL (0.70-1.30); GLOMERULAR FILTRATION RATE > 60.0 (>42); GLUCOSE, FASTING 112 MG/DL (70-100); POTASSIUM SERUM 4.3 MEQ/L (3.5-5.1); SODIUM LEVEL 142 MEQ/L (136-145)
[2021-05-20] MEDS: HumaLOG INSULIN (NovoLOG) PER UNIT SC SCH ×3 (05:31→17:49)
[2021-05-20 05:36] LABS: ABG BASE EXCESS -3.2 (-2.0-2.0); ABG HCO3 21.4 MEQ/L (22.0-26.0); ABG O2 SATURATION 98.8 % (95.0-99.0); ABG PARTIAL PRESSURE CO2 36.7 mmHg (35.0-45.0); ABG PARTIAL PRESSURE O2 186.6 mmHg (75.0-100.0); ABG STANDARD HCO3 21.8 MEQ/L (22.0-26.0); ABG TOTAL CO2 22.5 MEQ/L (23.0-31.0); ABG pH (ARTERIAL) 7.384 UNITS (7.350-7.450)
--- NOTE | 2021-05-20 08:31 | REP ---
INDICATION: s/pRULobectomy COMPARISON: 05/19/2021 TECHNIQUE: PA and lateral. FINDINGS: Two right-sided chest tubes are in stable position and right-sided pleuroparenchymal changes appear slightly more pronounced including moderate area of opacity forming in the right upper lung zone along with right basilar atelectasis. No obvious pneumothorax identified. Postsurgical changes including tenting to the diaphragmatic surface and small amount of subcutaneous emphysema again noted. Left hemithorax suggests medial left basilar airspace disease. Cardiac silhouette is within normal limits and stable. Skeletal structures stable. IMPRESSION: 1. Two right-sided chest tubes and postsurgical changes are again noted. 2. Increased moderate area of opacity in the right upper lung zone along with elements of bibasilar atelectasis. <Electronically signed by New Titus > 05/20/21 0894
[2021-05-20] MEDS: bisoproloL fumarate 5 MG TAB PO SCH (09:00)
[2021-05-20] MEDS: MOM 30ML SUSPENSION UDC PO SCH (09:00)
[2021-05-20] MEDS: PANTOPRAZOLE 40MG TAB (PROTONIX) PO SCH (09:09)
[2021-05-20] MEDS: metFORMIN (GLUCOPHAGE) 500MG TAB PO SCH ×2 (09:09→17:49)
[2021-05-20] MEDS: OCUVITE 1 TAB PO SCH ×2 (09:09→21:07)
[2021-05-20] MEDS: GABAPENTIN 300 MG CAP PO SCH ×3 (09:10→21:07)
[2021-05-20] MEDS: DOCUSATE SODIUM 100MG CAPSULE PO SCH ×2 (09:10→21:07)
[2021-05-20] MEDS: HEPARIN SOD (PORCINE) 5000UNITS/ML 1ML VIAL/SYRINGE SC SCH ×2 (09:10→21:08)
[2021-05-20] MEDS ORDERED: D5/0.9%NACL 1000ML IV ONE (09:45)
[2021-05-20] MEDS ORDERED: NS 500 ML IV ONE (10:05)
[2021-05-20] MEDS: FENTANYL/BUPIVACAINE/NACL BAG 250 ML EPIDURAL SCH (11:00)
[2021-05-20] MEDS ORDERED: EPIDURAL/PCA KEYS XX PRN (12:10)
[2021-05-20] MEDS ORDERED: NALOXONE INJ 0.4MG/1ML VIAL (J2310 PER 1MG) IV PRN (12:10)
[2021-05-20] MEDS ORDERED: WALLBOXKEY XX PRN (12:10)
[2021-05-20] MEDS ORDERED: METOCLOPRAMIDE INJ 10MG/2ML VIAL (J2765 PER 1) IV PRN (12:10)
[2021-05-20] MEDS ORDERED: diphenhydrAMINE 50MG/ML VIAL (J1200) IV PRN (12:10)
--- NOTE | 2021-05-20 12:33 | RO ---
OPERATIVE NOTE DATE OF OPERATION: 05/19/2021 PREOPERATIVE DIAGNOSIS: Lung cancer, possible lymphangitic spread. POSTOPERATIVE DIAGNOSIS: Lung cancer, no lymphangitic spread, right upper lobe. PROCEDURES: 1. Wedge resection with video-assisted thoracoscopic surgery (VATS) techniques with frozen section followed by thoracotomy with right upper lobectomy. 2. Mediastinal node lymphadenectomy. 3. Bronchoscopy. 4. Five-level rib block. 5. Azygous vein flap. SURGEON: Dr. Ace Stinson FINDINGS: Bronchoscopy at the beginning of the case revealed a normal-branching tracheobronchial tree with increased secretions. These were suction aspirated, and a decision was made at that time to re-bronchoscope the patient after surgery with possible bronchoalveolar lavage. The bronchoscopy after the procedure showed again mucous plugs, particularly on the right side, and these were removed with bronchoalveolar lavage with normal saline. The VATS wedge resection revealed almost complete fissures. The rim of right upper lobe along the fissure was wedged and sent for frozen section, and there was no lymphangitic spread. There may be some lepidic spread consistent with the original diagnosis. Nonetheless, it was decided that this represented a solitary mass, and a lobectomy was undertaken. As noted above, the fissures were nearly complete. He did have a lot of inflammatory response at the bottom of the fissures and at the top of the hilum at the arterial truncus. The minor fissure anteriorly after the confluence of fissures was almost incomplete and was completed toward the end of the procedure. DESCRIPTION OF PROCEDURE: Under satisfactory single-lumen tube endotracheal intubation, bronchoscope was placed in the tracheobronchial tree with the above results. There were no endobronchial lesions but copious amounts of secretions and mucous plugging, and these were removed with suction aspiration. Patient then underwent double-lumen intubation with positioning of the double lumen by bronchoscopy. He was then turned into the left lateral decubitus position and sterilely prepped and draped in the usual fashion. A VATS midaxillary line incision was made and a tunnel created in the chest without difficulty under direct vision with the thoracoscope in the obturator. The lung was not adherent to the chest wall, and the fissures looked to be complete except for the anterior portion of the minor fissure. Two other VATS incisions were made, and the rim of the lung on the fissure of the right upper lobe was seized with a grasper and then wedged off and sent for pathology for frozen section. No lymphangitic spread or malignancy was identified. A posterolateral thoracotomy incision was then made and carried down to the latissimus dorsi and a slip of the serratus anterior. Chest was entered from the 5th intercostal space guided by the thoracoscope. The entry was above the 6th rib. Retractor was placed, and the pulmonary artery in the fissure was readily visible. This was dissected and exposed. The posterior ascending right upper lobe pulmonary artery was surrounded with a vessel loop and stapled with a vascular stapler. The hilum was then exposed, noting the superior pulmonary vein with two branches to the middle lobe. Dissection was continued around the hilum and the truncus vessel on the right main pulmonary artery. I could not quite get to this vessel, and therefore a branch of the vein was dissected and divided by use of a vascular stapler. The vein could then be dissected more readily. This was surrounded by inflammatory tissue, and the dissection was rather tedious and prolonged. Nonetheless, at the end the stapler could be placed around the truncus right upper lobe artery and the artery divided by use of a stapler. Attention was then turned to the remaining portion of the superior pulmonary vein, which was dissected off the right main pulmonary artery. It, too, was divided by use of a vascular stapler. This then left the fissure in the bronchus. The fissure was completed after dividing all the vessels above the take-off of the middle lobe veins, which had been assiduously preserved when dividing the main superior pulmonary vein. This part of the case was fairly straightforward. This then left the bronchus, which was dissected and then divided by use of a 4.8 JOHANNA Merom stapler. The bronchus was checked at the 30 cm of water pressure and was found not to be leaking. There was one parenchymal leak a considerable way away at the periphery. This was oversewn with 3-0 Vicryl suture in a running fashion. It was then later covered with Tisseel glue. Attention was then turned to the mediastinum, where the mediastinal pleura was incised to expose the azygous vein and superior vena cava. The space had already been entered by mediastinoscopy about 2 weeks prior to this procedure. It was quite densely scarred, and no mediastinal nodes were noted except for one inferiorly beneath the azygous veins, which was removed and sent for pathological examination. The azygous vein was divided at its junction with the superior vena cava and dissected back to the hemiazygous vein. This was then freed up and stapled off at its base and then filleted. This then formed a flap to the upper lobe bronchus, to which it was attached with interrupted 3-0 Vicryl sutures. A 5-level rib block was undertaken with Exparel and Marcaine mixture, and two chest tubes were placed through two of the four thoracoscopy incisions. It should be noted that an auxiliary incision had to be made to place the staplers across the truncus pulmonary artery. The ribs were reapproximated by use of #1 Prolene [id number] sutures. Lung was reinflated and Tisseel glue was placed on the staple lines. The extrathoracic muscles were closed with running 0 Vicryl suture. The subcutaneous tissues were closed with running 3-0 Vicryl suture and the skin closed with running 3-0 Monopril subcuticular suture. Incision was infiltrated with Exparel and Marcaine mixture additionally. Patient was reintubated with a single-lumen tube and another bronchoscopy was undertaken with bronchoalveolar lavage to clear mucous plugs on the right side. The left side was relatively clear. Patient tolerated the procedure well and left the operating room in satisfactory condition to the recovery room. FRANCO
[2021-05-20] MEDS ORDERED: FENTANYL/BUPIVACAINE BAG 250 ML EPIDURAL SCH (14:00)
--- NOTE | 2021-05-20 14:13 | IPN ---
PROGRESS NOTE DATE: 05/20/2021 This is now the first postoperative day for Mr. Dong, who has had a stable night of surgery. He has required a number of boluses for pain control from his epidural, and his epidural is up to 13 mL an hour. When I see him today on morning rounds, his pain is being very well controlled. His vital signs show a maximum temperature of 98.1 with a heart rate that ranges between 67-79 in a sinus rhythm, respiratory rate of 16-18 without the use of accessory muscles, who is 93%-97% saturated on 2l iters nasal cannula and whose blood pressure is ranging between 97/44 to 122/55. His intake and output the past 24 hours have been recorded as 2282 in and 1379 out for a positivity of 900 mL. He has put out 344 mL from the chest tube up until midnight and 385 mL in the last 12 hours. He has a small air leak with forceful coughing. Weight today is 82.1 kg compared to 82 kg yesterday. PHYSICAL EXAMINATION: He has equal breath sounds on either side. I hear some rales and rhonchi on the right side. Percussion note is full to the diaphragm. Cardiac exam shows a 2/6 systolic murmur heard best on the left sternal border. I cannot feel his point of maximal impulse (PMI). S1 and S2 are normal. Abdomen is soft and nontender but slightly tympanitic and distended. Bowel sounds are positive. He is passing flatus. Extremities show no pretibial edema, no calf tenderness, no differential swelling of the upper extremities. Skin is warm, dry, and perfused without cyanosis or mottling, including that of the nailbeds and knees. Neck is supple. There is no jugular venous distention. No subcutaneous emphysema. Trachea is midline. Mouth shows the mucous membranes to be pink and moist. Lips and commissures without lesions. No thrush. Eyes show his pupils to be equal and reactive. Extraocular motion intact. Sclerae anicteric. Neurologic shows II-XII intact. Normal gross motor, gross sensation intact. Gait is not tested. Psychiatric shows him to be awake, alert, and oriented times three with appropriate mood and affect and conversational. His white count today is 11.1 with a hemoglobin and hematocrit of 10.6 and 31.0, down from 11.6 and 34.3 yesterday, probably secondary to hemodilution. Platelet count was 156 with a differential that shows 76% neutrophils, 14% lymphocytes, 7% monocytes. There are no immature forms or toxic granulations. His electrolytes today are essentially normal with a BUN and creatinine of 22 and 1.11 with a glucose of 112 and a calcium of 8.1. Blood gases this morning show a pH of 7.38, pCO2 of 36, and pO2 of 186 on 2 liters nasal cannula with a base excess of -3.2. His chest x-ray today shows an apical airspace. The lung has not expanded to the chest wall. Chest tubes are in good place. He remains on 20 cm suction. I see no other infiltrates, either on the PA or lateral views. IMPRESSION: 1. Postoperative day #1 status post right upper lobectomy. 2. 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 Final pathology pending. 3. Diabetes. 4. Hypertension. 5. Gastroesophageal reflux disease. 6. Chronic obstructive pulmonary disease (COPD). PLAN AND DISCUSSION: I will continue him on chest tube suction today. I will give him a bolus of 500 mL of normal saline, as his pressure has been on the soft side. He is requiring increased amounts of the epidural pain control, which is probably vasodilating. I will refrain from diuresing him today, although he has put out a considerable amount of the chest tube today. It does not look like chyle.
[2021-05-20] MEDS ORDERED: FUROSEMIDE 40MG/4ML VIAL (J1940) IV ONE (15:00)
[2021-05-20] MEDS: FLUoxetine 10 MG CAP PO SCH (21:07)
[2021-05-20] MEDS: ATORVASTATIN 20 MG TAB PO SCH (21:07)
[2021-05-20] MEDS: ACETAMINOPHEN TAB 650MG DOSE (2X325MG) PO PRN (21:12)
[2021-05-21] VITALS: BP 111/57
[2021-05-21] MEDS: LEVALBUTEROL 1.25 MG/0.5 ML CONCENTRATE NEB NEB SCH ×4 (01:13→19:49)
[2021-05-21] MEDS: ceFAZolin SOD 1 GM in D5W MINI-BAG PLUS 50 ML IV SCH ×2 (02:21→10:02)
[2021-05-21 04:00] VITALS: BP 138/56
[2021-05-21 04:44] LABS: BASO % 0.3 % (0.0-1.0); EOS # 0.1 10^3/uL (0.0-0.5); EOS % 0.9 % (0.0-3.0); HEMATOCRIT 31.2 % (42.0-52.0); HEMOGLOBIN 10.4 g/dl (13.5-17.5); LYMPH # 1.5 10^3/uL (1.5-5.0); LYMPH % 13.6 % (24.0-44.0); MEAN CORPUSCULAR HEMOGLOBIN 34.1 pg (27.0-33.0); MEAN CORPUSCULAR HGB CONC 33.3 g/dl (32.0-36.5); MEAN CORPUSCULAR VOLUME 102.3 fl (80.0-96.0); MONO % 8.9 % (2.0-8.0); NEUTROPHILS # 8.4 10^3/uL (1.5-8.5); PLATELET COUNT, AUTOMATED 154 10^3/uL (150-450); RED BLOOD COUNT 3.05 10^6/uL (4.30-6.10)
[2021-05-21] MEDS: KETOROLAC 30 MG/ML 1ML VIAL IV SCH ×4 (05:08→23:08)
[2021-05-21 05:10] LABS: BLOOD UREA NITROGEN 26 MG/DL (7-18); CARBON DIOXIDE LEVEL 24 MEQ/L (21-32); CHLORIDE LEVEL 111 MEQ/L (98-107); CREATININE FOR GFR 1.16 MG/DL (0.70-1.30); GLOMERULAR FILTRATION RATE > 60.0 (>42); GLUCOSE, FASTING 111 MG/DL (70-100); POTASSIUM SERUM 4.2 MEQ/L (3.5-5.1); SODIUM LEVEL 140 MEQ/L (136-145)
[2021-05-21] MEDS: HumaLOG INSULIN (NovoLOG) PER UNIT SC SCH ×4 (07:30→20:56)
[2021-05-21 09:00] VITALS: BP 106/53
[2021-05-21] MEDS: DOCUSATE SODIUM 100MG CAPSULE PO SCH ×2 (09:00→20:56)
[2021-05-21] MEDS: bisoproloL fumarate 5 MG TAB PO SCH (09:00)
[2021-05-21] MEDS: MOM 30ML SUSPENSION UDC PO SCH (09:00)
[2021-05-21] MEDS: metFORMIN (GLUCOPHAGE) 500MG TAB PO SCH ×2 (09:21→17:42)
[2021-05-21] MEDS: HEPARIN SOD (PORCINE) 5000UNITS/ML 1ML VIAL/SYRINGE SC SCH ×2 (10:02→20:55)
[2021-05-21] MEDS: PANTOPRAZOLE 40MG TAB (PROTONIX) PO SCH (10:03)
[2021-05-21] MEDS: OCUVITE 1 TAB PO SCH ×2 (10:03→20:56)
[2021-05-21] MEDS: GABAPENTIN 300 MG CAP PO SCH ×3 (10:03→20:56)
[2021-05-21 12:00] VITALS: BP 115/55
[2021-05-21] MEDS ORDERED: FENTANYL/BUPIVACAINE BAG 250 ML EPIDURAL SCH (14:00)
--- NOTE | 2021-05-21 14:15 | REP ---
INDICATION: s/pRULobectomy. COMPARISON: Two-view chest 05/20/2021, AP 05/19/2021 TECHNIQUE: PA and lateral views FINDINGS: Right upper in mid chest tubes over the posterior apex and anterior mid chest as noted previously. The mid chest tube is the retracted inferiorly a few cm. Postsurgical changes with volume loss in the right hemithorax, tenting of the diaphragmatic surface and elevation right hilum are again seen. Some right apex the pleural thickening or fluid noted greater than yesterday's study. No gross pneumothorax. Some minor patchy basilar atelectasis on the left less on the right. Heart size unchanged pulmonary arteries prominent centrally suggesting COPD. Underlying fibrosis and COPD and and epidural catheter in the midthoracic region again noted. No free air under the diaphragm. Bones unchanged. Calcified aortic arch without aneurysm. IMPRESSION: Two right-sided chest tubes with with posterior apical chest tube as before and the anterior mid chest tube retracted a few cm. No visible pneumothorax. Small apical cap with interval slight thickening of the apical pleura compared to yesterday's exam. Some patchy atelectasis left base and minimal in the right base. No cardiomegaly or rafal edema. <Electronically signed by Malachi Garcia > 05/21/21 [id number]
[2021-05-21 16:00] VITALS: BP 115/58
[2021-05-21] MEDS: FENTANYL/BUPIVACAINE BAG 250 ML EPIDURAL SCH (16:09)
[2021-05-21 20:00] VITALS: BP 123/71
[2021-05-21] MEDS: ATORVASTATIN 20 MG TAB PO SCH (20:56)
[2021-05-21] MEDS: FLUoxetine 10 MG CAP PO SCH (20:56)
[2021-05-22] VITALS (7 sets, daily range): BP systolic 90–131; BP diastolic 52–60
[2021-05-22] MEDS: LEVALBUTEROL 1.25 MG/0.5 ML CONCENTRATE NEB NEB SCH ×4 (01:14→20:23)
[2021-05-22] MEDS: ACETAMINOPHEN TAB 650MG DOSE (2X325MG) PO PRN (02:23)
[2021-05-22] MEDS: KETOROLAC 30 MG/ML 1ML VIAL IV SCH ×4 (05:00→22:24)
[2021-05-22 05:49] LABS: BASO % 0.3 % (0.0-1.0); EOS # 0.2 10^3/uL (0.0-0.5); EOS % 2.2 % (0.0-3.0); HEMATOCRIT 29.7 % (42.0-52.0); HEMOGLOBIN 9.9 g/dl (13.5-17.5); LYMPH # 1.8 10^3/uL (1.5-5.0); LYMPH % 18.5 % (24.0-44.0); MEAN CORPUSCULAR HEMOGLOBIN 34.4 pg (27.0-33.0); MEAN CORPUSCULAR HGB CONC 33.3 g/dl (32.0-36.5); MEAN CORPUSCULAR VOLUME 103.1 fl (80.0-96.0); MONO # 0.8 10^3/uL (0.0-0.8); MONO % 7.8 % (2.0-8.0); NEUTROPHILS # 6.8 10^3/uL (1.5-8.5); NEUTROPHILS % 70.7 % (36.0-66.0); PLATELET COUNT, AUTOMATED 169 10^3/uL (150-450); RED BLOOD COUNT 2.88 10^6/uL (4.30-6.10); WHITE BLOOD COUNT 9.6 10^3/uL (4.0-10.0)
[2021-05-22 06:18] LABS: BLOOD UREA NITROGEN 36 MG/DL (7-18); CALCIUM LEVEL 8.3 MG/DL (8.8-10.2); CARBON DIOXIDE LEVEL 23 MEQ/L (21-32); CHLORIDE LEVEL 116 MEQ/L (98-107); GLOMERULAR FILTRATION RATE > 60.0 (>42); GLUCOSE, FASTING 108 MG/DL (70-100); POTASSIUM SERUM 4.8 MEQ/L (3.5-5.1); SODIUM LEVEL 145 MEQ/L (136-145)
[2021-05-22] MEDS: HumaLOG INSULIN (NovoLOG) PER UNIT SC SCH ×4 (07:30→20:30)
[2021-05-22] MEDS: HEPARIN SOD (PORCINE) 5000UNITS/ML 1ML VIAL/SYRINGE SC SCH ×2 (08:26→20:28)
[2021-05-22] MEDS: OCUVITE 1 TAB PO SCH ×2 (08:29→20:27)
[2021-05-22] MEDS: metFORMIN (GLUCOPHAGE) 500MG TAB PO SCH ×2 (08:29→17:43)
[2021-05-22] MEDS: bisoproloL fumarate 5 MG TAB PO SCH (08:29)
[2021-05-22] MEDS: PANTOPRAZOLE 40MG TAB (PROTONIX) PO SCH (08:30)
[2021-05-22] MEDS: DOCUSATE SODIUM 100MG CAPSULE PO SCH ×2 (08:30→20:27)
[2021-05-22] MEDS: MOM 30ML SUSPENSION UDC PO SCH (08:30)
[2021-05-22] MEDS: GABAPENTIN 300 MG CAP PO SCH ×3 (08:30→20:27)
[2021-05-22] MEDS ORDERED: FUROSEMIDE 40MG/4ML VIAL (J1940) IV ONE (10:10)
[2021-05-22] MEDS: FENTANYL/BUPIVACAINE BAG 250 ML EPIDURAL SCH (17:21)
--- NOTE | 2021-05-22 19:42 | REP ---
INDICATION: s/pRULobectomy. COMPARISON: 05/21/2021, 05/20/2021 05/19/2021. TECHNIQUE: PA lateral FINDINGS: Two right-sided chest tubes again noted in this patient with the recent right upper lobectomy. Chest tube positions are unchanged from yesterday. There is apical pleural thickening or cap lucency subjacent to it suggesting a small of apical air gap. No lateral or sub pulmonic pneumothorax. Some perihilar atelectatic change on the right and elevation of the right hilus and subtle patchy perihilar atelectasis on the left as well. The apical air gap is slightly smaller on the right. No other new or significant findings or interval change. There is some blunting of the right CP angle representing a small effusion. IMPRESSION: 1. Status post lobectomy with 2 right-sided chest tubes and smaller apical air gap. Bilateral perihilar patchy atelectasis right greater than left. Small right effusion. No other significant finding or interval change. <Electronically signed by Malachi Garcia > 05/22/211937
[2021-05-22] MEDS: ATORVASTATIN 20 MG TAB PO SCH (20:27)
[2021-05-22] MEDS: FLUoxetine 10 MG CAP PO SCH (20:27)
[2021-05-23] VITALS: BP 119/56
[2021-05-23] MEDS: LEVALBUTEROL 1.25 MG/0.5 ML CONCENTRATE NEB NEB SCH ×4 (01:02→19:19)
[2021-05-23 04:10] VITALS: BP 122/63
[2021-05-23] MEDS: KETOROLAC 30 MG/ML 1ML VIAL IV SCH ×4 (04:19→23:46)
[2021-05-23 05:45] LABS: HEMATOCRIT 28.9 % (42.0-52.0); HEMOGLOBIN 9.5 g/dl (13.5-17.5); MEAN CORPUSCULAR HEMOGLOBIN 34.2 pg (27.0-33.0); MEAN CORPUSCULAR HGB CONC 32.9 g/dl (32.0-36.5); PLATELET COUNT, AUTOMATED 199 10^3/uL (150-450); RED BLOOD COUNT 2.78 10^6/uL (4.30-6.10); WHITE BLOOD COUNT 7.4 10^3/uL (4.0-10.0)
[2021-05-23 06:05] LABS: CALCIUM LEVEL 8.5 MG/DL (8.8-10.2); CREATININE FOR GFR 1.29 MG/DL (0.70-1.30); GLOMERULAR FILTRATION RATE 58.1 (>42); POTASSIUM SERUM 4.8 MEQ/L (3.5-5.1)
[2021-05-23 06:34] LABS: EOSINOPHILS 5 % (0-3); LYMPHOCYTES 19 % (16-44); MONOCYTES 4 % (0-5); NEUTROPHILS 69 % (28-66); PLATELET ESTIMATE NORMAL (NORMAL)
[2021-05-23 06:35] LABS: POLYCHROMASIA 1+
[2021-05-23 08:00] VITALS: BP 100/55
[2021-05-23] MEDS ORDERED: FUROSEMIDE 40MG/4ML VIAL (J1940) IV ONE (08:00)
[2021-05-23] MEDS: HumaLOG INSULIN (NovoLOG) PER UNIT SC SCH ×5 (08:30→21:00)
[2021-05-23] MEDS: DOCUSATE SODIUM 100MG CAPSULE PO SCH ×2 (09:00→21:07)
[2021-05-23] MEDS: bisoproloL fumarate 5 MG TAB PO SCH (09:00)
[2021-05-23] MEDS: MOM 30ML SUSPENSION UDC PO SCH (09:00)
--- NOTE | 2021-05-23 09:14 | REP ---
INDICATION: s/pRULobectomy COMPARISON: 05/22/2021. TECHNIQUE: PA/Lateral FINDINGS: Small right apical pneumothorax is unchanged. Scattered mild parenchymal opacities bilaterally are unchanged. Two right chest tubes are unchanged. The heart and mediastinum are unchanged. IMPRESSION: Stable exam. <Electronically signed by Maury Hernandez > 05/23/21 [id number]
[2021-05-23] MEDS: OCUVITE 1 TAB PO SCH ×2 (09:15→21:06)
[2021-05-23] MEDS: PANTOPRAZOLE 40MG TAB (PROTONIX) PO SCH (09:17)
[2021-05-23] MEDS: GABAPENTIN 300 MG CAP PO SCH ×3 (09:17→21:06)
[2021-05-23] MEDS: metFORMIN (GLUCOPHAGE) 500MG TAB PO SCH ×2 (09:17→18:20)
[2021-05-23] MEDS: HEPARIN SOD (PORCINE) 5000UNITS/ML 1ML VIAL/SYRINGE SC SCH ×2 (09:18→21:08)
--- NOTE | 2021-05-23 09:23 | IPN ---
PROGRESS NOTE DATE: 05/21/2021 SUBJECTIVE: This is the second postoperative day for Mr. Srinivasan. He was hypotensive yesterday and was given some extra volume and had his epidural turned down. His epidural is now double-strength and he is on 4 ml of it with adequate pain control. His blood pressure is in good range. His vital signs show a T-max of 100.7 with a heart rate that ranges between 90 and 100 an in sinus rhythm, respiratory rate is 16 to 20 without the use of accessory muscles who is 90 to 93% saturated on room air. His blood pressure is now ranging between 138/56 to 106/53. His intake and output over the past 24 hours has been recorded as 1240 in and 1538 out for a negativity of 298 ccs. He has put out 725 ccs out his chest tube. However, it is serosanguinous and not chylus. There is an air leak with forceful coughing. His weight today is 86.6 kilos compared to 82.1 kilos yesterday. OBJECTIVE: LUNGS: His lungs show inspiratory crackles on the right side. Percussion is full to the diaphragm. The left side shows normal vesicular sounds. Percussion is full to the diaphragm on the left. CARDIAC: Cardiac exam shows the same 2/6 systolic murmur over the left sternal border. I cannot feel his PMI. S1 and S2 are normal. ABDOMEN: Soft, nontender but slightly distended with active bowel sounds. He is having flatus and has had a bowel movement. There is no CVA tenderness. No hepatomegaly. EXTREMITIES: No pretibial edema. No calf tenderness. No differential swelling of the upper extremities. SKIN: Warm, dry and perfused without cyanosis or mottling including that of nail beds and knees. NECK: Supple. There is no jugular venous distention. No subcutaneous emphysema. Trachea is midline. HEENT: Mouth shows the mucous membranes to be pink and moist. Lips and commissures without lesions or thrush. Eyes shows the pupils equal and reactive. Extraocular muscles intact. Sclera nonicteric. NEUROLOGIC: Cranial I-XII intact. Normal gross motor, gross sensation intact. Gait is not tested. PSYCHIATRIC: He is awake, alert and oriented x3 with appropriate mood and affect, and conversational. LABORATORY DATA: His white count today is 11.0 with a hemoglobin and hematocrit of 10.4 and 31.2, essentially unchanged from yesterday with a platelet count of 154,000. Differential shows 76% neutrophils, 13% lymphocytes, 8% monocytes. There are no immature forms or toxic granulations. His electrolytes are essentially normal with a BUN and creatinine of 26 and 1.16. Blood glucose is 111 and calcium is 8.0. His chest x-ray today is improved over yesterday. He still has a small airspace but it is much smaller than it was yesterday. Costophrenic angles are sharp. The chest tubes are in good place. There is no subcutaneous emphysema. There are no infiltrates either on the PA or the lateral view posteriorly. Final pathology is pending. IMPRESSION: 1. Postop day #2, status post right upper lobectomy. 2. 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 Preoperative staging of Stage I, final pathology is pending. 3. Diabetes. 4. Hypertension. 5. Gastroesophageal reflux disease. 6. COPD. PLAN AND DISCUSSION: I will transfer him to the PCU today. I will hold off on diuresing him today even though he has had increased chest tube output. His pain is now being well-controlled. I have again encouraged him to use his incentive spirometry six times an hour.
--- NOTE | 2021-05-23 10:13 | IPN ---
PROGRESS NOTE DATE: 05/22/2021 SUBJECTIVE: This is the third postoperative day for Mr. Srinivasan. His pain is being well controlled. He has put out a large amount from the chest tube and I am going to start diuresing him today. He is breathing well. He is still on 2 liters nasal cannula. OBJECTIVE: His vital signs show a T-max of 98.2 with a heart rate that ranges between 80-87 in sinus rhythm, respiratory rate of 16-20 without the use of accessory muscles who is 97% saturated on 2 liters nasal cannula. His blood pressure is ranging between 119/58 to 104/58. His intake and output the past 24 hours has been recorded as 1331 in and 1440 out for a negativity of 100 mL. He has put out 420 mL from the chest tube and there is one level air leak with forceful coughing. Weight today is 82.5 kg compared to 86.6 kg yesterday. On physical examination he has equal breath sounds on either side. There are some inspiratory rales and expiratory rhonchi in the right lung. Percussion notes are full through the diaphragm. Left lung shows normal vesicular sounds. Percussion notes are full through the diaphragm on the left. Cardiac exam shows a 2/6 systolic ejection murmur along the left lower sternal border. I cannot feel his PMI. S1, S2 are normal. Abdomen is soft, nontender. Bowel sounds are positive. There is no hepatomegaly. No CVA tenderness. Extremities show no pretibial edema, no calf tenderness, no differential swelling of the upper extremities. Skin is warm and dry and perfused without cyanosis or mottling including that of nailbeds and knees. Neck is supple. There is no jugular venous distention, no subcutaneous emphysema. Trachea is midline. Mouth shows the mucous membranes to be pink and moist. Lips and commissures are without lesions, no thrush. Eyes show the pupils to be equal and reactive. Extraocular movements are intact. Sclerae are nonicteric. Neuro shows II-XII intact with normal gross motor, gross sensation intact. Gait is not tested. Psychiatric shows him to be awake and alert and oriented times three with appropriate mood and affect and conversational. His white count today is 9.6 down from 11.0 yesterday. Hemoglobin and hematocrit are 9.9 and 29.7 slightly down from 10.4 and 31.2 probably secondary to hemodilution. Platelet count is 169 with a differential that shows 78% neutrophils, 18% lymphocytes, and 7% monocytes. There were no immature forms or toxic granulations. His electrolytes are normal with a BUN and creatinine of 36 and 1.20. Glucose is 108 with a calcium of 8.3. Chest x-ray shows his lungs fully expanded to the chest wall except for a small airspace at the right cupula. It continues to get smaller. Costophrenic angles are sharp. There is obligate volume loss from the lobectomy on the right side. There is a slight mediastinal shift to the right side. I see no infiltrates on the PA view or the posteriorly on the lateral view. ASSESSMENT: 1. Postoperative day number three status post right upper lobectomy. 2. 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 Preoperative staging is stage I, final pathology pending. 3. Diabetes. 4. Hypertension. 5. Gastroesophageal reflux disease (GERD). 6. Chronic obstructive pulmonary disease (COPD). PLAN AND DISCUSSION: I will start to diuresis him today. I will discontinue his chest tube suction. We still encourage his incentive spirometer and PAP therapy for lung expansion. We of course await pathology. FRANCO
[2021-05-23 12:00] VITALS: BP 111/62
--- NOTE | 2021-05-23 15:28 | IPN ---
PROGRESS NOTE DATE: 05/23/2021 SUBJECTIVE: This is now the fourth postoperative for Mr. Dong. He has put out too much from the chest tube to remove it. There is an intermittent air leak. I see not air leak on my rounds today, although nursing staff has. His pain is well-controlled at the epidural. His vital signs show a maximum temperature (T-max) of 98.8, with a heart rate that ranges between 101 and 114 in a sinus rhythm, a respiratory rate that is a constant 18, who is 93-98% saturated on 1 liter nasal cannula. His blood pressure is ranging between 122/63 to 100/55. His intake and output for the past 24 hours is recorded as 1260 in and 1915 out for a negativity of 655 mL. He has put out 340 mL from the chest tube and 355 mL in the last 12 hours. Weight today is 84 kilos compared to 82.5 kilos yesterday. PHYSICAL EXAMINATION: LUNGS: Show equal breath sounds on either side. There are some crackles on the right side. Percussion notes are full to the diaphragm. CARDIAC EXAM: Shows a 2/6 systolic murmur at the left sternal border. I cannot feel his point of maximum impulse (PMI). S1 and S2 are normal. ABDOMEN: Soft, nontender. Bowel sounds are positive. There is no hepatosplenomegaly. No costovertebral angle (CVA) tenderness. EXTREMITIES: Show no pretibial edema. No calf tenderness. No differential swelling of the upper extremities. SKIN: Warm, dry and perfused without cyanosis or mottling including that of the nailbeds and knees. NECK: Supple. There is no jugular venous distention. No subcutaneous emphysema. Trachea is midline. MOUTH: Shows the mucous membranes to be pink and moist. Lips and commissures are without lesions, no thrush. EYES: Show the pupils to be equal and reactive. Extraocular movements are intact. Sclerae are nonicteric. NEUROLOGIC: Shows II-XII intact with normal gross motor, gross sensation intact. Gait is not tested. PSYCHIATRIC: Shows him to be awake and alert and oriented times three with appropriate mood and affect and conversational. His white count today is 7.4 with a hemoglobin and hematocrit of 9.5 and 28.9 respectively, essentially unchanged from yesterday. Platelet count is 199 and stable. Differential shows 69% neutrophils, 3% bands, 19% lymphocytes and 4% monocytes. There were no immature forms or toxic granulations. His chemistries show sodium of 148 with BUN and creatinine of 43 and 1.29. Glucose is 137 with a calcium of 8.5. His chest x-ray shows his lungs fully expanded to the chest wall. There is no subcutaneous emphysema. There is abrogate volume loss from the lobectomy. The costophrenic angles are sharp. There is no mediastinal shift. IMPRESSION: 1. Postoperative day number four status post right upper lobectomy. 2. 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 Final pathology shows a tumor of 2.5 cm, making him a T1C with all nodes negative N0 and no metastases M0, which maps to stage 1AC. 3. Diabetes. 4. Hypertension. 5. Gastroesophageal reflux disease. 6. Chronic obstructive pulmonary disease (COPD). 7. Mild hypernatremia. PLAN AND DISCUSSION: In spite of his hypernatremia, I will again diuresis him today. His chest tube output looks serosanguinous and does not look chylous. There is an intermittent air leak. I have not seen air leak yesterday or today on rounds, although nursing staff says they have. With his stage 1AC, he will not need adjuvant chemotherapy.
[2021-05-23 16:00] VITALS: BP 109/59
[2021-05-23] MEDS: FENTANYL/BUPIVACAINE BAG 250 ML EPIDURAL SCH (18:05)
[2021-05-23 20:00] VITALS: BP 101/57
[2021-05-23] MEDS: FLUoxetine 10 MG CAP PO SCH (21:06)
[2021-05-23] MEDS: ATORVASTATIN 20 MG TAB PO SCH (21:06)
[2021-05-24] MEDS: UNRESOLVED CLARIFICATION ENTRY XX SCH (00:01)
[2021-05-24 00:05] VITALS: BP 122/60
[2021-05-24] MEDS: LEVALBUTEROL 1.25 MG/0.5 ML CONCENTRATE NEB NEB SCH ×4 (01:36→19:47)
[2021-05-24 04:00] VITALS: BP 119/56
[2021-05-24] MEDS: KETOROLAC 30 MG/ML 1ML VIAL IV SCH ×2 (05:27→11:28)
[2021-05-24 06:12] LABS: BASO % 0.3 % (0.0-1.0); EOS # 0.3 10^3/uL (0.0-0.5); EOS % 3.9 % (0.0-3.0); HEMATOCRIT 28.1 % (42.0-52.0); HEMOGLOBIN 9.2 g/dl (13.5-17.5); LYMPH # 1.5 10^3/uL (1.5-5.0); LYMPH % 21.5 % (24.0-44.0); MEAN CORPUSCULAR HEMOGLOBIN 34.2 pg (27.0-33.0); MEAN CORPUSCULAR HGB CONC 32.7 g/dl (32.0-36.5); MEAN CORPUSCULAR VOLUME 104.5 fl (80.0-96.0); MONO # 0.9 10^3/uL (0.0-0.8); MONO % 13.1 % (2.0-8.0); NEUTROPHILS # 4.3 10^3/uL (1.5-8.5); NEUTROPHILS % 60.5 % (36.0-66.0); PLATELET COUNT, AUTOMATED 232 10^3/uL (150-450); RED BLOOD COUNT 2.69 10^6/uL (4.30-6.10); WHITE BLOOD COUNT 7.1 10^3/uL (4.0-10.0)
[2021-05-24 06:36] LABS: BLOOD UREA NITROGEN 47 MG/DL (7-18); CALCIUM LEVEL 8.2 MG/DL (8.8-10.2); CARBON DIOXIDE LEVEL 25 MEQ/L (21-32); CHLORIDE LEVEL 115 MEQ/L (98-107); CREATININE FOR GFR 1.15 MG/DL (0.70-1.30); GLOMERULAR FILTRATION RATE > 60.0 (>42); GLUCOSE, FASTING 113 MG/DL (70-100); POTASSIUM SERUM 4.5 MEQ/L (3.5-5.1); SODIUM LEVEL 145 MEQ/L (136-145)
[2021-05-24] MEDS ORDERED: FUROSEMIDE 40MG/4ML VIAL (J1940) IV ONE (07:30)
[2021-05-24 08:00] VITALS: BP 100/47
--- NOTE | 2021-05-24 08:14 | REP ---
INDICATION: s/pRULobectomy. COMPARISON: Comparison chest x-ray May 23, 2021. TECHNIQUE: Two views.. FINDINGS: There are 2 right-sided chest tubes in place unchanged. A small air-fluid level is seen in the right lung apex unchanged from yesterday's radiograph. No other evidence of pneumothorax. Patient is status post partial pneumonectomy on the right. A epidural catheter is seen overlying the thoracic spine. The there is slight blunting of the right posterior pleural angle on the lateral radiograph. No new infiltrate. IMPRESSION: Two right chest tubes. Post right thoracotomy partial pneumonectomy changes.. <Electronically signed by Mansoor Trevizo > 05/24/21 [id number]
[2021-05-24 08:21] LABS: MAGNESIUM LEVEL 1.4 MG/DL (1.8-2.4)
[2021-05-24] MEDS: MOM 30ML SUSPENSION UDC PO SCH (09:00)
[2021-05-24] MEDS ORDERED: MAG SULF 1GM/100ML (MAG RUN) 1 GM in IV 1 EA IV ONE (09:00)
[2021-05-24] MEDS: bisoproloL fumarate 5 MG TAB PO SCH ×2 (09:00→09:02)
[2021-05-24] MEDS: HEPARIN SOD (PORCINE) 5000UNITS/ML 1ML VIAL/SYRINGE SC SCH ×2 (09:01→20:35)
[2021-05-24] MEDS: PANTOPRAZOLE 40MG TAB (PROTONIX) PO SCH (09:01)
[2021-05-24] MEDS: DOCUSATE SODIUM 100MG CAPSULE PO SCH ×2 (09:01→20:35)
[2021-05-24] MEDS: GABAPENTIN 300 MG CAP PO SCH ×3 (09:02→20:34)
[2021-05-24] MEDS: OCUVITE 1 TAB PO SCH ×2 (09:02→20:34)
[2021-05-24] MEDS: metFORMIN (GLUCOPHAGE) 500MG TAB PO SCH ×2 (09:02→18:34)
[2021-05-24] MEDS: HumaLOG INSULIN (NovoLOG) PER UNIT SC SCH ×4 (09:47→20:36)
[2021-05-24] MEDS: MAGNESIUM OXIDE 400MG TAB (MAG-OX) PO SCH (11:28)
[2021-05-24 12:00] VITALS: BP 110/56
[2021-05-24 16:00] VITALS: BP 120/56
--- NOTE | 2021-05-24 16:24 | IPN ---
PROGRESS NOTE DATE: 05/24/2021 SUBJECTIVE: This is now the fifth postoperative day for Mr. Dong. He is doing quite well and his pain is being well-controlled with the epidural. He has put out a little bit too much from the chest tube to remove it yet. He went into bigeminy this morning. Magnesium came back at 1.4. He was given a run of magnesium and the bigeminy resolved. VITAL SIGNS: Show a maximum temperature (T-max) of 99.3 with a heart rate that ranges between 96 and 103 in sinus rhythm, respiratory rate 18-20 without the use of accessory muscles, who is 94-91% saturated on 2 liters nasal cannula, and his blood pressure is ranging between 100/47 to 122/60. INTAKE AND OUTPUT: For the past 24 hours has been recorded as 1140 in and 265 out, for a negativity of 925 mL. He has put out 390 mL from the chest tube over the last 24 hours. He has tailed off in the last eight hours to 100 then 35 mL in the eight hour intervals, but then is back up to 100 mL in the last 11 hours. He weighs 85.5 kg today compared to 84 kilos yesterday. PHYSICAL EXAMINATION: He has some residual diffuse rhonchi on the right side, most of which clears with coughing. Percussion notes are full to the diaphragm. CARDIAC EXAM: Shows a 2/6 systolic murmur at the left sternal border. I cannot feel his point of maximum impulse (PMI). S1 and S2 are normal. ABDOMEN: Soft, nontender. Bowel sounds are positive. He is distended and tympanitic, however. He had a bowel movement yesterday. No costovertebral angle (CVA) tenderness. EXTREMITIES: Show no pretibial edema. No calf tenderness. No differential swelling of the upper extremities. SKIN: Warm, dry and perfused without cyanosis or mottling including that of the nailbeds and knees. NECK: Supple. There is no jugular venous distention. No subcutaneous emphysema. Trachea is midline. MOUTH: Shows the mucous membranes to be pink and moist. Lips and commissures are without lesions, no thrush. EYES: Show the pupils to be equal and reactive. Extraocular movements are intact. Sclerae are nonicteric. NEUROLOGIC: Shows II-XII intact with normal gross motor, gross sensation intact. Gait is not tested. PSYCHIATRIC: Shows him to be awake and alert and oriented times three with appropriate mood and affect and conversational. His white count today is 7.1 with a hemoglobin and hematocrit of 9.2 and 28.1 respectively, unchanged from yesterday, with a platelet count of 132 and stable. Differential shows 60% neutrophils, 21% lymphocytes and 13% monocytes. There were no immature forms or toxic granulations. His electrolytes are normal with a BUN and creatinine however of 47 and 1.15, slightly changed from yesterday's of 43 and 1.29. Glucose is 113 with a calcium of 8.2 and a magnesium of 1.4. He received a 1 gram magnesium run today and I will recheck his magnesium and start him on magnesium oxide by mouth. His chest x-ray today still shows a small air space in the cupula. Other than that, his lungs are fully expanded to the chest wall. Chest tubes are in good place. There is no subcutaneous emphysema. There is a slight shift to the right from the abrogate volume loss secondary to the lobectomy. IMPRESSION: 1. Postoperative day number five status post right upper lobectomy. 2. 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 3. Diabetes. 4. Hypertension. 5. Gastroesophageal reflux disease. 6. Chronic obstructive pulmonary disease (COPD). 7. Mild hypernatremia, resolved. 8. Hypomagnesemia, treated. 9. Bigeminy, resolved. PLAN AND DISCUSSION: As noted above, I will check another magnesium level and start him on magnesium oxide for his bigeminy. I will continue his chest tube; however, they are to water seal. I will again diurese him today. His creatinine is slightly better than it was yesterday. I have informed the patient of his pathology results. He will not need adjuvant chemotherapy.
[2021-05-24] MEDS: FENTANYL/BUPIVACAINE BAG 250 ML EPIDURAL SCH (18:38)
[2021-05-24 20:15] VITALS: BP 137/60
[2021-05-24] MEDS: ATORVASTATIN 20 MG TAB PO SCH (20:33)
[2021-05-24] MEDS: FLUoxetine 10 MG CAP PO SCH (20:34)
[2021-05-25 00:12] VITALS: BP 103/51
[2021-05-25] MEDS: UNRESOLVED CLARIFICATION ENTRY XX SCH (00:12)
[2021-05-25] MEDS: LEVALBUTEROL 1.25 MG/0.5 ML CONCENTRATE NEB NEB SCH ×4 (03:41→19:19)
[2021-05-25 04:15] VITALS: BP 127/56
[2021-05-25 05:59] LABS: BASO % 0.5 % (0.0-1.0); EOS # 0.3 10^3/uL (0.0-0.5); HEMATOCRIT 28.2 % (42.0-52.0); HEMOGLOBIN 9.2 g/dl (13.5-17.5); LYMPH # 1.6 10^3/uL (1.5-5.0); LYMPH % 20.3 % (24.0-44.0); MEAN CORPUSCULAR HEMOGLOBIN 33.7 pg (27.0-33.0); MEAN CORPUSCULAR HGB CONC 32.6 g/dl (32.0-36.5); MEAN CORPUSCULAR VOLUME 103.3 fl (80.0-96.0); MONO % 11.9 % (2.0-8.0); NEUTROPHILS % 62.3 % (36.0-66.0); PLATELET COUNT, AUTOMATED 271 10^3/uL (150-450); RED BLOOD COUNT 2.73 10^6/uL (4.30-6.10)
[2021-05-25 06:29] LABS: BLOOD UREA NITROGEN 41 MG/DL (7-18); CALCIUM LEVEL 8.6 MG/DL (8.8-10.2); CARBON DIOXIDE LEVEL 27 MEQ/L (21-32); CHLORIDE LEVEL 114 MEQ/L (98-107); CREATININE FOR GFR 0.95 MG/DL (0.70-1.30); GLOMERULAR FILTRATION RATE > 60.0 (>42); GLUCOSE, FASTING 108 MG/DL (70-100); POTASSIUM SERUM 4.7 MEQ/L (3.5-5.1); SODIUM LEVEL 145 MEQ/L (136-145)
[2021-05-25] MEDS: HumaLOG INSULIN (NovoLOG) PER UNIT SC SCH ×4 (07:30→20:47)
[2021-05-25 08:00] VITALS: BP 119/57
--- NOTE | 2021-05-25 08:26 | REP ---
INDICATION: s/pRULobectomy. COMPARISON: Comparison chest x-ray May 24, 2021. The TECHNIQUE: Two views.. FINDINGS: Two right-sided chest tubes remain in place. There is an air-fluid level again noted in the right apex. There is post thoracotomy partial pneumonectomy volume loss in the right hemithorax. Interstitial markings are somewhat prominent on the right as before. There is slight blunting of the left posterior pleural angle. The heart is not enlarged. IMPRESSION: Post right thoracotomy partial pneumonectomy. Two right chest tubes. small loculated hydropneumothorax is seen at the right apex. Unchanged.. <Electronically signed by Mansoor Trevizo > 05/25/21 [id number]
[2021-05-25] MEDS: MOM 30ML SUSPENSION UDC PO SCH (09:00)
[2021-05-25] MEDS ORDERED: FUROSEMIDE 40MG/4ML VIAL (J1940) IV ONE (10:20)
[2021-05-25] MEDS: HEPARIN SOD (PORCINE) 5000UNITS/ML 1ML VIAL/SYRINGE SC SCH ×2 (10:20→20:22)
[2021-05-25] MEDS: bisoproloL fumarate 5 MG TAB PO SCH (10:21)
[2021-05-25] MEDS: metFORMIN (GLUCOPHAGE) 500MG TAB PO SCH ×2 (10:21→18:23)
[2021-05-25] MEDS: MAGNESIUM OXIDE 400MG TAB (MAG-OX) PO SCH (10:21)
[2021-05-25] MEDS: PANTOPRAZOLE 40MG TAB (PROTONIX) PO SCH (10:22)
[2021-05-25] MEDS: OCUVITE 1 TAB PO SCH ×2 (10:22→20:22)
[2021-05-25] MEDS: DOCUSATE SODIUM 100MG CAPSULE PO SCH ×2 (10:22→20:23)
[2021-05-25] MEDS: GABAPENTIN 300 MG CAP PO SCH ×3 (10:22→20:23)
[2021-05-25 10:46] LABS: MAGNESIUM LEVEL 1.5 MG/DL (1.8-2.4)
[2021-05-25] MEDS: PERCOCET 5MG/325MG TAB PO PRN ×3 (11:13→20:23)
[2021-05-25 12:00] VITALS: BP 104/65
--- NOTE | 2021-05-25 12:13 | IPN ---
PROGRESS NOTE DATE: 05/25/2021 This is now the sixth postoperative day for Mr. Dong. His chest tube has drained less than 250 mL. Now we will remove it. His pain is being well controlled with the use of the epidural. His vital signs show a maximum temperature (T-max) of 99.3 with a heart rate that ranges between 101-107 in a sinus rhythm, respiratory rate of 17-20 without the use of accessory muscles, who is 88%-94% saturated on 2 liters nasal cannula and whose blood pressure is ranging between 103/51 to 127/56. His intake and output for the past 24 hours has been recorded as 2011 in, 2425 out, for a negativity of 420 mL. He has put 250 mL out of the chest tube, and there is no air leak. Weight today is 86.5 kg compared to 85.5 kg yesterday. PHYSICAL EXAMINATION: His lungs show equal breath sounds on either side. There are still a few inspiratory rales on the right side. Percussion note is full to the diaphragm. Cardiac exam is without murmurs, clicks, gallops, or rubs. I cannot feel his point of maximal impulse (PMI). S1 and S2 are normal. Abdomen is soft and nontender. Bowel sounds are positive. There is no hepatomegaly. No costovertebral angle (CVA) tenderness. He is much softer and less distended today. Extremities show no pretibial edema, no calf tenderness, no differential swelling of the upper extremities. Skin is warm, dry, and perfused without cyanosis or mottling, including that of the nailbeds and knees. Neck is supple. There is no jugular venous distention. No subcutaneous emphysema. His trachea is midline. Mouth shows the mucous membranes to be pink and moist. Lips and commissures without lesions. No thrush. Eyes show his pupils to be equal and reactive. Extraocular motion intact. Sclerae anicteric. Neurologic shows II-XII intact. Normal gross motor, gross sensation intact. Gait is not tested. Psychiatric shows him to be awake, alert, and oriented times three with appropriate mood and affect and conversational. His white count today is 8.0 with a hemoglobin and hematocrit of 9.2 and 28.2, unchanged from yesterday, with a platelet count of 271 and stable. Differential shows 62% neutrophils, 20% lymphocytes, 11% monocytes. There are no immature forms or toxic granulations. Electrolytes are essentially normal with a BUN and creatinine of 41 and 0.95, down from 47 and 1.15 yesterday. Glucose is 108 with a calcium 8.6. His chest x-ray today shows his lung fully expanded to the chest wall. There is still a small apical airspace. There is no subcutaneous emphysema. There is obligate volume loss of the right lung secondary to the lobectomy. Costophrenic angles are sharp. I see no infiltrates on either the PA or the lateral views. IMPRESSION: 1. Postoperative day #6 status post right upper lobectomy. 2. 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 3. Diabetes. 4. Hypertension. 5. Gastroesophageal reflux disease. 6. Chronic obstructive pulmonary disease. 7. Mild hypernatremia, resolved. 8. Hypomagnesemia, treated. 9. Bigeminy resolved. PLAN AND DISCUSSION: I will check a magnesium level today. We will remove his chest tubes, discontinue his Steele catheter, and wean the epidural. I will again diurese him today.
[2021-05-25] MEDS ORDERED: DIGOXIN INJ 0.5 MG/2 ML AMP (J1160) IV ONE (13:15)
[2021-05-25] MEDS ORDERED: MAG SULF 1GM/100ML (MAG RUN) 1 GM in IV 1 EA IV ONE (13:30)
[2021-05-25 16:00] VITALS: BP 110/54
[2021-05-25 20:00] VITALS: BP 108/61
[2021-05-25] MEDS: DIGOXIN INJ 0.5 MG/2 ML AMP (J1160) IV SCH (20:21)
[2021-05-25] MEDS: FLUoxetine 10 MG CAP PO SCH (20:22)
[2021-05-25] MEDS: ATORVASTATIN 20 MG TAB PO SCH (20:23)
[2021-05-26] VITALS (7 sets, daily range): BP systolic 94–122; BP diastolic 51–69
[2021-05-26] MEDS: PERCOCET 5MG/325MG TAB PO PRN ×4 (00:29→17:49)
[2021-05-26] MEDS: LEVALBUTEROL 1.25 MG/0.5 ML CONCENTRATE NEB NEB SCH ×4 (02:05→19:25)
[2021-05-26] MEDS: DIGOXIN INJ 0.5 MG/2 ML AMP (J1160) IV SCH (02:27)
[2021-05-26] MEDS: HumaLOG INSULIN (NovoLOG) PER UNIT SC SCH ×4 (07:30→20:48)
[2021-05-26] MEDS: GABAPENTIN 300 MG CAP PO SCH ×3 (08:03→20:48)
[2021-05-26] MEDS: metFORMIN (GLUCOPHAGE) 500MG TAB PO SCH ×2 (08:03→17:43)
[2021-05-26] MEDS: MAGNESIUM OXIDE 400MG TAB (MAG-OX) PO SCH (08:03)
[2021-05-26] MEDS: DOCUSATE SODIUM 100MG CAPSULE PO SCH ×2 (08:03→20:48)
[2021-05-26] MEDS: OCUVITE 1 TAB PO SCH ×2 (08:03→20:48)
[2021-05-26] MEDS: PANTOPRAZOLE 40MG TAB (PROTONIX) PO SCH (08:04)
[2021-05-26] MEDS: MOM 30ML SUSPENSION UDC PO SCH (08:04)
[2021-05-26] MEDS: HEPARIN SOD (PORCINE) 5000UNITS/ML 1ML VIAL/SYRINGE SC SCH ×2 (08:05→20:48)
[2021-05-26] MEDS: bisoproloL fumarate 5 MG TAB PO SCH (08:44)
--- NOTE | 2021-05-26 08:44 | REP ---
INDICATION: s/pRULobectomy. COMPARISON: Comparison chest x-ray May 25, 2021. TECHNIQUE: Two views.. FINDINGS: EKG monitoring electrodes overlie the chest. 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 There are degenerative changes in the thoracic spine. The heart is not enlarged. Left lung remains free of infiltrate. There is slight blunting of the right posterior and right lateral pleural angles. An air-fluid level persists in the right chest. In the interval since yesterday's exam, the 2 right chest tubes have been removed. Findings are otherwise stable. IMPRESSION: Two right chest tubes have been removed. A pleural air-fluid level persists at the right apex. Blunting of the right lateral and posterior pleural angles.. <Electronically signed by Mansoor Trevizo > 05/26/21 [id number]
[2021-05-26] MEDS ORDERED: DIGOXIN 0.125 MG TAB PO SCH (09:00)
[2021-05-26 09:02] LABS: BASO % 0.4 % (0.0-1.0); EOS # 0.2 10^3/uL (0.0-0.5); EOS % 2.3 % (0.0-3.0); LYMPH # 1.9 10^3/uL (1.5-5.0); LYMPH % 18.2 % (24.0-44.0); MEAN CORPUSCULAR HEMOGLOBIN 33.8 pg (27.0-33.0); MEAN CORPUSCULAR HGB CONC 33.3 g/dl (32.0-36.5); MEAN CORPUSCULAR VOLUME 101.5 fl (80.0-96.0); MONO # 1.1 10^3/uL (0.0-0.8); MONO % 10.2 % (2.0-8.0); NEUTROPHILS # 7.1 10^3/uL (1.5-8.5); NEUTROPHILS % 67.8 % (36.0-66.0); PLATELET COUNT, AUTOMATED 359 10^3/uL (150-450); RED BLOOD COUNT 3.25 10^6/uL (4.30-6.10); WHITE BLOOD COUNT 10.4 10^3/uL (4.0-10.0)
[2021-05-26 09:31] LABS: BLOOD UREA NITROGEN 28 MG/DL (7-18); CALCIUM LEVEL 8.8 MG/DL (8.8-10.2); CARBON DIOXIDE LEVEL 26 MEQ/L (21-32); CHLORIDE LEVEL 109 MEQ/L (98-107); CREATININE FOR GFR 0.85 MG/DL (0.70-1.30); GLOMERULAR FILTRATION RATE > 60.0 (>42); GLUCOSE, FASTING 128 MG/DL (70-100); MAGNESIUM LEVEL 1.4 MG/DL (1.8-2.4); POTASSIUM SERUM 4.2 MEQ/L (3.5-5.1); SODIUM LEVEL 144 MEQ/L (136-145)
[2021-05-26] MEDS ORDERED: MAG SULF 1GM/100ML (MAG RUN) 1 GM in IV 1 EA IV ONE ×2 (13:00→17:00)
--- NOTE | 2021-05-26 16:50 | IPN ---
PROGRESS NOTE DATE: 05/26/2021 This is now the seventh postoperative day for Mr. Dong. I came in intending to discharge him; however, he is slightly hypotensive, tachycardic, and now has a junctional accelerated rhythm. He is hemoconcentrated, and I suspect that he is slightly dehydrated. His vital signs show a maximum temperature (T-max) of 98.0 with a heart rate that ranges between 118-121 in what the EKG interprets as a junctional ectopic rhythm with retrograde conduction. Respiratory rate is 18-20 without the use of accessory muscles, and he is 96%-93% saturated on 2 liters nasal cannula. His blood pressure is ranging between 122/68 to 96/54. The past 4 hours he has been in that range of 95-96 systolic. Yesterday I thought that he was going into atrial fibrillation, and I Digitalized him. It is clear that this is not atrial fibrillation. His intake and output for the past 24 hours have been recorded as 2500 in and 2875 out, for a negativity of 375 mL. Chest tube is now out. Weight today is 84.7 kg compared to 86.5 kg yesterday. PHYSICAL EXAMINATION: His lungs show equal breath sounds on both sides with some inspiratory rales at the very end of inspiration on the right side. Percussion note is full to the diaphragm. Cardiac exam shows the same 2/6 murmur on the left sternal border during systole. I cannot feel his point of maximal impulse (PMI). S1 and S2 are normal. Abdomen is soft and nontender. Bowel sounds are positive. There is no hepatomegaly. No costovertebral angle (CVA) tenderness, except that which is referable to incision on the right side. Extremities show no pretibial edema, no calf tenderness, no differential swelling of the upper extremities. Skin is warm, dry, and perfused without cyanosis or mottling, including that of the nailbeds and knees. Neck is supple. There is no jugular venous distention. No subcutaneous emphysema. Trachea is midline. Mouth shows the mucous membranes to be pink and moist. Lips and commissures without lesions. No thrush. Eyes show his pupils to be equal and reactive. Extraocular motion intact. Sclerae anicteric. Neurologic shows II-XII intact. Normal gross motor, gross sensation intact. Gait is also intact. Psychiatric shows him to be awake, alert, and oriented times three with appropriate mood and affect and conversational. His white count today is 10.4 with a hemoglobin and hematocrit of 11.0 and 33.0, compared to 9.2 and 28.2 yesterday. I this is secondary to hemoconcentration. Platelet count is 359 and stable, and differential shows 67% neutrophils, 18% lymphocytes, and 10% monocytes. There are no immature forms or toxic granulations. His electrolytes are essentially normal with a BUN and creatinine of 28 and 0.85, down from 41 and 0.95 yesterday and 43 and 1.29 three days ago. His kidneys are now returning to normal with accelerated urine output. Magnesium is 1.4 again today, and I will again give him a magnesium run. Glucose is 128. Calcium is 8.8. His chest x-ray today shows his lung fully expanded to the chest wall. There is an air-fluid level in the cupula where he has a small airspace. Costophrenic angles are, however, sharp. I see no infiltrates on the lateral or the PA film. IMPRESSION: 1. Postoperative day #7 status post right upper lobectomy. 2. Moderately differentiated adenocarcinoma, [id number], which maps to stage IAC. 3. Diabetes. 4. Hypertension. 5. Gastroesophageal reflux disease. 6. Chronic obstructive pulmonary disease (COPD). 7. Hypernatremia, resolved. 8. Hypomagnesemia, continuing. 9. Accelerated junctional rhythm. 10. Possible hemoconcentration with dehydration. PLAN AND DISCUSSION: We will encourage oral intake. I will discontinue the digoxin, and I will give him a magnesium run times two today. I am not sure what the source of his hypomagnesemia is, although he does take magnesium at home.
[2021-05-26] MEDS: ATORVASTATIN 20 MG TAB PO SCH (20:48)
[2021-05-26] MEDS: FLUoxetine 10 MG CAP PO SCH (20:48)
[2021-05-27] VITALS: BP 130/77
[2021-05-27] MEDS: PERCOCET 5MG/325MG TAB PO PRN ×2 (00:01→04:46)
[2021-05-27] MEDS: LEVALBUTEROL 1.25 MG/0.5 ML CONCENTRATE NEB NEB SCH ×2 (02:06→07:36)
[2021-05-27 04:00] VITALS: BP 124/70
[2021-05-27 05:56] LABS: BASO % 0.4 % (0.0-1.0); EOS # 0.2 10^3/uL (0.0-0.5); EOS % 2.2 % (0.0-3.0); HEMATOCRIT 30.7 % (42.0-52.0); HEMOGLOBIN 10.5 g/dl (13.5-17.5); LYMPH # 1.7 10^3/uL (1.5-5.0); LYMPH % 16.8 % (24.0-44.0); MEAN CORPUSCULAR HEMOGLOBIN 34.2 pg (27.0-33.0); MEAN CORPUSCULAR HGB CONC 34.2 g/dl (32.0-36.5); MONO # 0.8 10^3/uL (0.0-0.8); MONO % 8.5 % (2.0-8.0); PLATELET COUNT, AUTOMATED 356 10^3/uL (150-450); RED BLOOD COUNT 3.07 10^6/uL (4.30-6.10); WHITE BLOOD COUNT 9.9 10^3/uL (4.0-10.0)
[2021-05-27 06:08] LABS: BLOOD UREA NITROGEN 16 MG/DL (7-18); CALCIUM LEVEL 8.2 MG/DL (8.8-10.2); CARBON DIOXIDE LEVEL 27 MEQ/L (21-32); CHLORIDE LEVEL 106 MEQ/L (98-107); CREATININE FOR GFR 0.65 MG/DL (0.70-1.30); GLOMERULAR FILTRATION RATE > 60.0 (>42); GLUCOSE, FASTING 128 MG/DL (70-100); MAGNESIUM LEVEL 1.4 MG/DL (1.8-2.4); POTASSIUM SERUM 3.9 MEQ/L (3.5-5.1); SODIUM LEVEL 140 MEQ/L (136-145)
[2021-05-27] MEDS: HumaLOG INSULIN (NovoLOG) PER UNIT SC SCH (07:30)
[2021-05-27 08:00] VITALS: BP 109/53
--- NOTE | 2021-05-27 08:18 | REP ---
INDICATION: s/pRULobectomy. COMPARISON: Comparison chest radiograph May 26, 2021. TECHNIQUE: Two views.. FINDINGS: There is post thoracotomy partial pneumonectomy volume loss again noted in the right hemithorax. There is an air-fluid level in the right lung apex and some pleural opacity is seen above the major fissure on the right unchanged. Interstitial markings are slightly prominent in the left lung but no focal infiltrate is seen. No left pleural effusion is seen. There is very slight blunting of the right posterior pleural angle. These findings are unchanged. IMPRESSION: Is stable small right-sided hydropneumothorax postop.. <Electronically signed by Mansoor Trevizo > 05/27/21 0889
[2021-05-27] MEDS: bisoproloL fumarate 5 MG TAB PO SCH (08:44)
[2021-05-27] MEDS: OCUVITE 1 TAB PO SCH (08:44)
[2021-05-27] MEDS: MAGNESIUM OXIDE 400MG TAB (MAG-OX) PO SCH (08:45)
[2021-05-27] MEDS: GABAPENTIN 300 MG CAP PO SCH (08:45)
[2021-05-27] MEDS: HEPARIN SOD (PORCINE) 5000UNITS/ML 1ML VIAL/SYRINGE SC SCH (08:45)
[2021-05-27] MEDS: PANTOPRAZOLE 40MG TAB (PROTONIX) PO SCH (08:45)
[2021-05-27] MEDS: DOCUSATE SODIUM 100MG CAPSULE PO SCH (08:45)
[2021-05-27] MEDS: metFORMIN (GLUCOPHAGE) 500MG TAB PO SCH (08:45)
[2021-05-27] MEDS: MOM 30ML SUSPENSION UDC PO SCH (08:50)
[2021-05-27] MEDS ORDERED: fentaNYL 25 MCG/HR PATCH TOP SCH (09:00)
[2021-05-27] MEDS ORDERED: DABIGATRAN ETEXILATE 75 MG CAP (PRADAXA) PO SCH (09:00)
[2021-05-27] MEDS ORDERED: KETOROLAC 30 MG/ML 1ML VIAL IV SCH (09:00)
[2021-05-27] MEDS ORDERED: FENTANYL REMOVAL DOCUMENTATION MISC XX SCH (09:25)
[2021-05-27] MEDS ORDERED: MAG SULF 1GM/100ML (MAG RUN) 1 GM in IV 1 EA IV ONE (10:00)
[2021-05-27] MEDS ORDERED: PERCOCET PO (10:56)
--- NOTE | 2021-05-27 12:05 | DSES ---
DISCHARGE SUMMARY DATE OF ADMISSION: 05/19/2021 DATE OF DISCHARGE: 05/27/2021 DISCHARGE DIAGNOSES: 1. 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 2. Postoperative day #8 status post right upper lobectomy. 3. Diabetes. 4. Hypertension. 5. Gastroesophageal reflux disease. 6. Chronic obstructive pulmonary disease. 7. Hypomagnesemia, chronic. 8. Atrial flutter with controlled rate. HOSPITAL COURSE: Patient is a 71-year-old white male who was noted to have a nodule in his right upper lobe for the last 4 years, when it was seen on a CT scan in 2017. He was followed then, and it was noted to increase in size. He was virtually asymptomatic with an occasional cough with white sputum production. He is an inveterate smoker of one pack per day of cigarettes. 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 He has atrial fibrillation, for which he was on Pradaxa. His pulmonary function tests showed an FEV1 of 2.18, which is 72% of predicted, and a DLCO of 16.69, which is 66% of predicted. On the appearance of the CT scan he had a feathery appearance in and around the lesion, extending from the lesion to the periphery. There was also some uptake in a mediastinal node, although very mild. He therefore underwent mediastinoscopy, and the nodes were negative. He was therefore taken to the operating room, where he underwent a wedge resection of the feathery infiltrative tissue, which did not show lymphangitic spread. Therefore, a right upper lobectomy was undertaken after receiving the frozen section report back from pathology. He had a relatively benign postoperative course with the chest tubes being removed on the fifth postoperative day; however, he went into a junctional accelerated rhythm. He was restarted on Zebeta, which resolved the tachycardia; however, he was in underlying atrial flutter/atrial fibrillation. He was chronically hypomagnesemic throughout the hospital course, for which he received numerous magnesium runs. This has been an ongoing chronic problem for many years. He takes magnesium at home. Final pathology showed this to be stage IAC disease, and as such he should not need adjuvant chemotherapy. He is being discharged today on his home medications, which include ProAir two puffs four times a day as needed for shortness of breath, atorvastatin 80 mg daily, bisoprolol 15 mg daily, Pradaxa 150 mg twice a day, famotidine 20 mg daily, fenofibrate 160 mg daily, fluoxetine 10 mg every evening, Flonase 50 mcg spray as needed, gabapentin 300 mg three times a day, Tradjenta 5 mg every evening, lisinopril 10 mg daily, magnesium chloride 128 mg twice a day, metformin 1000 mg twice a day, niacin 500 mg daily, tizanidine 4 mg as needed for pain, Chantix 1 gram twice a day, along with multiple vitamins. He is also being sent home on Percocet 5/325 every 4 hours as needed for pain. A Duragesic patch was placed on him the day of discharge and will last him for the next 3 days. It should be noted that the epidural controlled his pain quite well during its placement, and it was removed on the day the chest tubes were removed. He will return to see me in 1 week with a chest x-ray for postoperative followup. His discharge laboratories show a hemoglobin and hematocrit of 10.5 and 30.7, respectively, with a white count of 9.9 and a platelet count of 356. Chemistries show normal electrolytes with a BUN and creatinine of 16 and 0.65, magnesium of 1.4, which dropped from 1.8 yesterday after a magnesium run. He was given a magnesium run this morning before discharge. Calcium is 8.2. He has been instructed to do no heavy lifting, but moderate activity has been emphasized. The wound is now uncovered, and he may shower.
[2021-05-27] MEDS ORDERED: MAGNESIUM OXIDE 400MG TAB (MAG-OX) PO SCH (21:00)
--- NOTE | 2021-05-28 18:29 | ECGEPIP ---
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
== END 2021-05-27 12:22 | disposition home or self-care (01) | DRG 164 ==
LOC: M OR 07:43 → M ICU 17:25 → M PCU 05-21 18:20
PROVIDERS: ADMIT Thoracic Surgery (Cardiothoracic Vascular Surgery); ATTEND Thoracic Surgery (Cardiothoracic Vascular Surgery)
PROC: 07B70ZX Excision of Thorax Lymphatic, Open Approach, Diagnostic (ICD-10-PCS; 2021-05-19)
PROC: 0BTC0ZZ Resection of Right Upper Lung Lobe, Open Approach (ICD-10-PCS; principal; 2021-05-19 09:00)
DX: C34.11 Malignant neoplasm of upper lobe, right bronchus or lung (principal); E87.0 Hyperosmolality and hypernatremia; I48.92 Unspecified atrial flutter; Z79.01 Long term (current) use of anticoagulants; I10 Essential (primary) hypertension; E11.9 Type 2 diabetes mellitus without complications; J44.9 Chronic obstructive pulmonary disease, unspecified; E83.42 Hypomagnesemia; K21.9 Gastro-esophageal reflux disease without esophagitis; F17.210 Nicotine dependence, cigarettes, uncomplicated

== ENCOUNTER → 2021-06-01 | Outpatient (CLI) | payer MEDICARE ==
[~2021-06-01] MED LIST changes: -LR 1,000 ML IV ONE; -MIDAZOLAM INJ 2MG/2ML VIAL (J2250 PER 1MG) IV PRN; +PERCOCET PO; -fentaNYL 100 MCG/2 ML INJECTION (J3010) IV PRN
--- NOTE | 2021-06-01 13:31 | REP ---
INDICATION: RIGHT BRONCHUS OR LUNG. COMPARISON: Multiple the latest 05/27/2021 TECHNIQUE: PA and lateral FINDINGS: The cardiomediastinal silhouette is unchanged. Chronic right lung changes are noted status quo with tenting of the diaphragmatic surface of the right lung which is unchanged as well. No new abnormal opacities are evident. The air density component of the hydropneumothorax seen previously in the upper lobe region on the right has gotten smaller. IMPRESSION: Chronic changes as described above. There appears to be some right upper lobe improvement. <Electronically signed by Pio Servin > 06/01/21 [id number]
== END ==
LOC: M ADAMS 12:00
PROVIDERS: ATTEND Ophthalmology
DX: C34.11 Malignant neoplasm of upper lobe, right bronchus or lung (principal); Z48.3 Aftercare following surgery for neoplasm

== ENCOUNTER → 2021-06-14 | Outpatient (CLI) | payer MEDICARE ==
--- NOTE | 2021-06-14 14:39 | REP ---
INDICATION: MALIGNANT NEOPLASM OF UPPER LOBE. COMPARISON: 06/01/2021 TECHNIQUE: PA and lateral views FINDINGS: The small hydropneumothorax at the right apex noted on the previous study has resolved. Again noted are postoperative changes after lobectomy on the right side. There is residual pleural effusion on the right side and tenting of the hemidiaphragm. The lungs are clear. The heart is not enlarged. There is no failure. IMPRESSION: Resolution of the small right hydropneumothorax. The right lung is fully expanded after lobectomy. There is no evidence of active parenchymal disease in the lungs or pulmonary venous congestion. <Electronically signed by Estuardo Oh > 06/14/21 0221
== END ==
LOC: M ADAMS 12:03
PROVIDERS: ATTEND Thoracic Surgery (Cardiothoracic Vascular Surgery)
DX: C34.11 Malignant neoplasm of upper lobe, right bronchus or lung (principal); Z90.2 Acquired absence of lung [part of]; J90 Pleural effusion, not elsewhere classified

== ENCOUNTER → 2021-07-05 | Outpatient (CLI) | payer MEDICARE ==
--- NOTE | 2021-07-05 11:17 | REP ---
INDICATION: UPPER LOBE COMPARISON: 06/14/2021. TECHNIQUE: PA/Lateral FINDINGS: There are stable postsurgical changes on the right, with apical pleural thickening and elevation of the right hemidiaphragm. There is mild fibro atelectatic change bilaterally. No acute infiltrate is seen. The heart is normal in size. The mediastinal silhouette is unchanged. There is some calcification of the thoracic aorta. Metallic prosthesis is noted of the proximal right humerus. There are degenerative changes of the spine without compression deformity. IMPRESSION: Stable exam. <Electronically signed by Maury Hernandez > 07/05/21 1114
== END ==
LOC: M ADAMS 09:41
PROVIDERS: ATTEND Thoracic Surgery (Cardiothoracic Vascular Surgery)
DX: C34.11 Malignant neoplasm of upper lobe, right bronchus or lung (principal); J44.9 Chronic obstructive pulmonary disease, unspecified; I70.0 Atherosclerosis of aorta

== ENCOUNTER → 2021-08-22 | Outpatient (REF) | payer MEDICARE | LOC: M LABDRWAD 12:34 | PROVIDERS: ATTEND Physician Assistant | DX: I48.92 Unspecified atrial flutter (principal); Z79.899 Other long term (current) drug therapy ==

== ENCOUNTER → 2021-11-17 | Outpatient (REF) | payer MEDICARE ==
[~2021-11-17] MED LIST changes: -FLUO10CA16 PO; +FLUO10CA18 PO
[2021-11-17 16:40] LABS: BLOOD UREA NITROGEN 21 MG/DL (7-18); CREATININE FOR GFR 1.11 MG/DL (0.70-1.30); GLOMERULAR FILTRATION RATE > 60.0 (>42)
== END ==
LOC: M LABDRWAD 15:58
PROVIDERS: ATTEND Internal Medicine Pulmonary Disease
DX: C34.11 Malignant neoplasm of upper lobe, right bronchus or lung (principal)

== ENCOUNTER → 2021-11-21 | Outpatient (CLI) | payer MEDICARE ==
[~2021-11-21] MED LIST changes: +ISOVUE-370 76% 100ML VIAL ONE
== END ==
LOC: M PLAIMG 09:56
PROVIDERS: ATTEND Internal Medicine Pulmonary Disease
DX: C34.11 Malignant neoplasm of upper lobe, right bronchus or lung (principal); Z90.2 Acquired absence of lung [part of]; J90 Pleural effusion, not elsewhere classified; I25.10 Atherosclerotic heart disease of native coronary artery without angina pectoris; I70.0 Atherosclerosis of aorta; R59.0 Localized enlarged lymph nodes
CPT/HCPCS: 71260; Q9967

== ENCOUNTER 2021-12-08 04:17 | Emergency (ER) | payer MEDICARE ==
[~2021-12-08] VITALS: Ht 177.8 cm; Wt 81.8 kg
[~2021-12-08 04:17] MED LIST changes: -FLUC200T2 PO; +FLUC200T4 PO; -ISOVUE-370 76% 100ML VIAL ONE
[2021-12-08] MEDS ORDERED: methylPREDNISolone 125MG 2ML VIAL IV ONE ×2 (04:25→05:05)
[2021-12-08] MEDS ORDERED: IPRATROPIUM 0.5MG/ALBUTEROL 2.5MG INH SOL UD 3ML (DUONEB) As Ordered ONE (04:44)
[2021-12-08 04:47] LABS: HEMATOCRIT 37.2 % (42.0-52.0); HEMOGLOBIN 11.5 g/dl (13.5-17.5); MEAN CORPUSCULAR HEMOGLOBIN 32.8 pg (27.0-33.0); MEAN CORPUSCULAR HGB CONC 30.9 g/dl (32.0-36.5); PLATELET COUNT, AUTOMATED 387 10^3/uL (150-450); RED BLOOD COUNT 3.51 10^6/uL (4.30-6.10); WHITE BLOOD COUNT 17.7 10^3/uL (4.0-10.0)
[2021-12-08 04:47] LABS: ABG BASE EXCESS -10.3 (-2.0-2.0); ABG HCO3 19.7 MEQ/L (22.0-26.0); ABG O2 SATURATION 98.8 % (95.0-99.0); ABG PARTIAL PRESSURE O2 228.1 mmHg (75.0-100.0); ABG STANDARD HCO3 16.3 MEQ/L (22.0-26.0); ABG TOTAL CO2 21.7 MEQ/L (23.0-31.0)
[2021-12-08 04:48] LABS: ABG pH (ARTERIAL) 7.107 UNITS (7.350-7.450)
[2021-12-08] MEDS ORDERED: NS 1,000 ML IV ONE (04:50)
[2021-12-08 04:59] LABS: INR 1.39; PROTHROMBIN TIME 17.5 SECONDS (12.7-14.5)
[2021-12-08 05:02] LABS: D-DIMER QUANT 3148.47 ng/ml (<500)
[2021-12-08] MEDS: IPRATROPIUM 0.5MG/ALBUTEROL 2.5MG INH SOL UD 3ML (DUONEB) NEB SCH ×2 (05:05→06:08)
[2021-12-08 05:17] LABS: CK-MB VALUE MASS 2.4 NG/ML (<3.6); MB/CK RELATIVE INDEX 2.4 (< OR =4)
[2021-12-08 05:23] LABS: ALBUMIN 3.7 GM/DL (3.2-5.2); BILIRUBIN,DIRECT 0.1 MG/DL (0.0-0.2); BILIRUBIN,TOTAL 0.3 MG/DL (0.2-1.0); CALCIUM LEVEL 8.7 MG/DL (8.8-10.2); CREATININE FOR GFR 1.62 MG/DL (0.70-1.30); EOSINOPHILS 1 % (0-3); GLOMERULAR FILTRATION RATE 44.7 (>42); LYMPHOCYTES 34 % (16-44); MONOCYTES 8 % (0-5); MYELOCYTES 1 % (0-0); NEUTROPHILS 56 % (28-66); PLATELET ESTIMATE NORMAL (NORMAL); TOTAL PROTEIN 7.1 GM/DL (6.4-8.2)
[2021-12-08] MEDS ORDERED: ISOVUE-370 76% 100ML VIAL As Ordered ONE (05:30)
[2021-12-08 05:46] LABS: ABG BASE EXCESS -7.5 (-2.0-2.0); ABG HCO3 20.7 MEQ/L (22.0-26.0); ABG O2 SATURATION 77.1 % (95.0-99.0); ABG PARTIAL PRESSURE O2 51.4 mmHg (75.0-100.0); ABG TOTAL CO2 22.4 MEQ/L (23.0-31.0); ABG pH (ARTERIAL) 7.194 UNITS (7.350-7.450)
[2021-12-08 07:04] LABS: CK-MB VALUE MASS 2.7 NG/ML (<3.6)
[2021-12-08 09:47] LABS: ABG BASE EXCESS -4.8 (-2.0-2.0); ABG HCO3 20.8 MEQ/L (22.0-26.0); ABG O2 SATURATION 97.6 % (95.0-99.0); ABG PARTIAL PRESSURE CO2 40.4 mmHg (35.0-45.0); ABG PARTIAL PRESSURE O2 113.1 mmHg (75.0-100.0); ABG STANDARD HCO3 20.5 MEQ/L (22.0-26.0); ABG pH (ARTERIAL) 7.329 UNITS (7.350-7.450)
[2021-12-08 11:45] VITALS: BP 93/61
== END 2021-12-08 12:08 | disposition short-term general hospital (02) ==
LOC: M ED 04:17
DX: J96.01 Acute respiratory failure with hypoxia (principal); J96.92 Respiratory failure, unspecified with hypercapnia; I48.91 Unspecified atrial fibrillation; I44.0 Atrioventricular block, first degree; T17.408A Unspecified foreign body in trachea causing other injury, initial encounter; J90 Pleural effusion, not elsewhere classified; J81.0 Acute pulmonary edema; I42.9 Cardiomyopathy, unspecified; Z90.2 Acquired absence of lung [part of]; E11.9 Type 2 diabetes mellitus without complications; I10 Essential (primary) hypertension; J44.9 Chronic obstructive pulmonary disease, unspecified; E78.5 Hyperlipidemia, unspecified; Z85.118 Personal history of other malignant neoplasm of bronchus and lung; Z79.899 Other long term (current) drug therapy; Z79.84 Long term (current) use of oral hypoglycemic drugs
CPT/HCPCS: 36600; 51702; 71045; 71275; 74176; 80048; 80076; 81001; 82550; 82553; 82803; 83605; 83880; 84484; 85025; 85379; 85610; 87040; 87798; 93005; 93041; 93306; 94640; 94660; 96361; 96374; 99285; J2930; Q9967

== ENCOUNTER 2021-12-19 09:00 | Inpatient (IN) | payer MEDICARE ==
[2021-12-19] VITALS (7 sets, daily range): BP systolic 110–125; BP diastolic 53–60
[~2021-12-19] VITALS: Ht 172.7 cm; Wt 76.6 kg
[2021-12-19] MEDS ORDERED: NS 500 ML IV ONE (09:25)
[2021-12-19] MEDS ORDERED: PACE200T PO (09:35)
[2021-12-19] MEDS ORDERED: PLAV1TAB2 PO (09:35)
[2021-12-19] MEDS ORDERED: NITR0.4S14 SL (09:35)
[2021-12-19] MEDS ORDERED: FURO20TA2 PO (09:35)
[2021-12-19] MEDS ORDERED: FERR325T3 PO (09:35)
[2021-12-19] MEDS ORDERED: ELIQ5TAB PO (09:35)
[2021-12-19 10:09] LABS: BASO % 0.2 % (0.0-1.0); EOS % 0.3 % (0.0-3.0); LYMPH # 1.6 10^3/uL (1.5-5.0); LYMPH % 12.3 % (24.0-44.0); MEAN CORPUSCULAR HEMOGLOBIN 33.3 pg (27.0-33.0); MEAN CORPUSCULAR HGB CONC 33.5 g/dl (32.0-36.5); MEAN CORPUSCULAR VOLUME 99.4 fl (80.0-96.0); MONO # 0.7 10^3/uL (0.0-0.8); MONO % 5.3 % (2.0-8.0); NEUTROPHILS # 10.1 10^3/uL (1.5-8.5); NEUTROPHILS % 80.3 % (36.0-66.0); PLATELET COUNT, AUTOMATED 446 10^3/uL (150-450); WHITE BLOOD COUNT 12.6 10^3/uL (4.0-10.0)
[2021-12-19 10:20] LABS: INR 1.5; PROTHROMBIN TIME 18.5 SECONDS (12.7-14.5)
[2021-12-19 10:21] LABS: HEMATOCRIT 17.9 % (42.0-52.0); PARTIAL THROMBOPLASTIN TIME 47.8 SECONDS (25.9-37.0)
[2021-12-19] MEDS ORDERED: ISOVUE-370 76% 100ML VIAL As Ordered ONE (10:24)
[2021-12-19 10:33] LABS: CK-MB VALUE MASS 3.8 NG/ML (<3.6); MB/CK RELATIVE INDEX 6.67 (< OR =4)
[2021-12-19 10:48] LABS: ALBUMIN 2.9 GM/DL (3.2-5.2); ALT/SGPT 21 U/L (12-78); BILIRUBIN,DIRECT < 0.1 MG/DL (0.0-0.2); BILIRUBIN,TOTAL 0.3 MG/DL (0.2-1.0); BLOOD UREA NITROGEN 37 MG/DL (7-18); CALCIUM LEVEL 8.8 MG/DL (8.8-10.2); CARBON DIOXIDE LEVEL 26 MEQ/L (21-32); CHLORIDE LEVEL 99 MEQ/L (98-107); CREATININE FOR GFR 1.53 MG/DL (0.70-1.30); FREE T4 1.08 NG/DL (0.76-1.46); GLOMERULAR FILTRATION RATE 47.7 (>42); GLUCOSE, FASTING 135 MG/DL (70-100); LIPASE 95 U/L (73-393); MAGNESIUM LEVEL 1.5 MG/DL (1.8-2.4); NT-PRO BNP 293 PG/ML (<125); POTASSIUM SERUM 3.7 MEQ/L (3.5-5.1); SODIUM LEVEL 135 MEQ/L (136-145); TOTAL PROTEIN 6.2 GM/DL (6.4-8.2)
[2021-12-19 10:54] LABS: RSV AMPLIFICATION NEGATIVE (NEGATIVE)
[2021-12-19] MEDS ORDERED: MOM 30ML SUSPENSION UDC PO PRN (12:05)
[2021-12-19] MEDS ORDERED: ACETAMINOPHEN TAB 650MG DOSE (2X325MG) PO PRN (12:05)
[2021-12-19] MEDS ORDERED: NEUR300C PO (12:47)
[2021-12-19] MEDS ORDERED: ALBU83IN INH (12:56)
[2021-12-19] MEDS ORDERED: VARE1TAB2 PO (12:56)
[2021-12-19] MEDS ORDERED: HOME MED LIST COMPLETE! XX SCH (13:00)
[2021-12-19] MEDS: oxyCODONE 5MG TAB PO PRN ×2 (13:18→18:43)
[2021-12-19] MEDS ORDERED: valACYclovir HCL 500 MG TAB PO PRN (13:45)
[2021-12-19] MEDS ORDERED: ALBUTEROL SULFATE 2.5 MG/0.5 ML INH NEB SOLN INH PRN (13:45)
[2021-12-19] MEDS ORDERED: NITROGLYCERIN 0.4 MG SUBL TABLET SL PRN (13:45)
[2021-12-19] MEDS ORDERED: ALBUTEROL 90 MCG/ACT 8GM HFA INHALER INH PRN (13:45)
[2021-12-19] MEDS ORDERED: DEXTROSE 50% 50 ML SYRINGE IV PRN (14:15)
[2021-12-19] MEDS ORDERED: GLUCOSE 4GM CHEW TABLET PO PRN (14:15)
[2021-12-19] MEDS ORDERED: GLUCAGON INJ 1MG VIAL SC PRN (14:15)
[2021-12-19] MEDS ORDERED: MAG SULF 1GM/100ML (MAG RUN) 1 GM in IV 1 EA IV ONE (15:00)
[2021-12-19] MEDS: OCTREOTIDE ACETATE 100MCG/ML VIAL **IV ADMINISTRATION ONLY IV SCH ×2 (16:05→23:36)
[2021-12-19] MEDS: AMIODARONE 200 MG TAB (PACERONE) PO SCH (16:17)
[2021-12-19] MEDS: MAGNESIUM OXIDE 400MG TAB (MAG-OX) PO SCH (16:17)
[2021-12-19] MEDS: GABAPENTIN 300 MG CAP PO SCH ×2 (16:19→23:37)
[2021-12-19] MEDS: HumaLOG INSULIN (NovoLOG) PER UNIT SC SCH ×2 (18:43→21:00)
[2021-12-19] MEDS: SUCRALFATE SUSP 1GM/10ML UD PO SCH ×2 (18:46→23:36)
[2021-12-19] MEDS ORDERED: CHANTIX 1 MG PO SCH (21:00)
[2021-12-19] MEDS: PANTOPRAZOLE 40MG VIAL (C9113 PER 1) IV SCH (23:36)
[2021-12-19] MEDS: ATORVASTATIN 20 MG TAB PO SCH (23:36)
[2021-12-19] MEDS: FERROUS SULFATE 325MG TAB PO SCH (23:38)
[2021-12-20 00:55] VITALS: BP 133/74
[2021-12-20] MEDS: oxyCODONE 5MG TAB PO PRN ×4 (01:29→21:50)
[2021-12-20] MEDS: NIACIN SR (NIASPAN) 500MG TAB PO SCH ×2 (02:10→21:50)
[2021-12-20 04:00] VITALS: BP 103/55
[2021-12-20 04:58] LABS: HEMATOCRIT 23.7 % (42.0-52.0); HEMOGLOBIN 8.2 g/dl (13.5-17.5); MEAN CORPUSCULAR HEMOGLOBIN 32.3 pg (27.0-33.0); MEAN CORPUSCULAR HGB CONC 34.6 g/dl (32.0-36.5); MEAN CORPUSCULAR VOLUME 93.3 fl (80.0-96.0); PLATELET COUNT, AUTOMATED 361 10^3/uL (150-450); RED BLOOD COUNT 2.54 10^6/uL (4.30-6.10)
[2021-12-20 05:11] LABS: BLOOD UREA NITROGEN 21 MG/DL (7-18); CALCIUM LEVEL 8.1 MG/DL (8.8-10.2); CARBON DIOXIDE LEVEL 27 MEQ/L (21-32); CHLORIDE LEVEL 103 MEQ/L (98-107); CREATININE FOR GFR 1.08 MG/DL (0.70-1.30); GLOMERULAR FILTRATION RATE > 60.0 (>42); GLUCOSE, FASTING 136 MG/DL (70-100); MAGNESIUM LEVEL 1.7 MG/DL (1.8-2.4); POTASSIUM SERUM 3.2 MEQ/L (3.5-5.1); SODIUM LEVEL 137 MEQ/L (136-145)
[2021-12-20] MEDS: OCTREOTIDE ACETATE 100MCG/ML VIAL **IV ADMINISTRATION ONLY IV SCH (05:33)
[2021-12-20] MEDS ORDERED: POTASSIUM CHLORIDE 10% LIQ 20 MEQ/15 ML UDC PO ONE (05:35)
[2021-12-20] MEDS: HumaLOG INSULIN (NovoLOG) PER UNIT SC SCH ×4 (07:30→21:00)
[2021-12-20 08:00] VITALS: BP 101/54
[2021-12-20] MEDS: PANTOPRAZOLE 40MG VIAL (C9113 PER 1) IV SCH ×2 (09:18→20:50)
[2021-12-20] MEDS: FERROUS SULFATE 325MG TAB PO SCH ×2 (09:19→20:49)
[2021-12-20] MEDS: SUCRALFATE SUSP 1GM/10ML UD PO SCH ×4 (09:19→20:50)
[2021-12-20] MEDS: VITAMIN D 1,000 INTERNATIONAL UNITS TABLET PO SCH (09:19)
[2021-12-20] MEDS: MAGNESIUM OXIDE 400MG TAB (MAG-OX) PO SCH (09:19)
[2021-12-20] MEDS: FENOFIBRATE 145MG TABLET (TRICOR) PO SCH (09:20)
[2021-12-20] MEDS: GABAPENTIN 300 MG CAP PO SCH ×3 (09:20→20:49)
[2021-12-20] MEDS: AMIODARONE 200 MG TAB (PACERONE) PO SCH (09:20)
[2021-12-20] MEDS: CLOPIDOGREL 75 MG TAB PO SCH (09:21)
[2021-12-20] MEDS: MOM 30ML SUSPENSION UDC PO SCH ×2 (10:32→20:49)
[2021-12-20] MEDS ORDERED: MAG SULF 1GM/100ML (MAG RUN) 1 GM in IV 1 EA IV ONE (11:00)
[2021-12-20 12:00] VITALS: BP 105/52
[2021-12-20 16:00] VITALS: BP 131/65
[2021-12-20] MEDS ORDERED: MAGNESIUM CITRATE 300 ML BTL PO ONE (16:00)
[2021-12-20 18:43] LABS: HEMOGLOBIN 8.8 g/dl (13.5-17.5)
[2021-12-20 20:00] VITALS: BP 132/61
[2021-12-20] MEDS: ATORVASTATIN 20 MG TAB PO SCH (20:49)
[2021-12-21] VITALS (14 sets, daily range): BP systolic 89–120; BP diastolic 38–62
[2021-12-21 00:35] LABS: HEMATOCRIT 22.9 % (42.0-52.0); HEMOGLOBIN 7.7 g/dl (13.5-17.5)
[2021-12-21] MEDS ORDERED: NS 1,000 ML IV ONE (04:25)
[2021-12-21 05:31] LABS: HEMATOCRIT 23.3 % (42.0-52.0); HEMATOCRIT 23.6 % (42.0-52.0); HEMOGLOBIN 7.8 g/dl (13.5-17.5); MEAN CORPUSCULAR HEMOGLOBIN 31.8 pg (27.0-33.0); MEAN CORPUSCULAR HGB CONC 33.1 g/dl (32.0-36.5); MEAN CORPUSCULAR HGB CONC 33.5 g/dl (32.0-36.5); MEAN CORPUSCULAR VOLUME 95.1 fl (80.0-96.0); MEAN CORPUSCULAR VOLUME 96.7 fl (80.0-96.0); PLATELET COUNT, AUTOMATED 392 10^3/uL (150-450); PLATELET COUNT, AUTOMATED 393 10^3/uL (150-450); RED BLOOD COUNT 2.44 10^6/uL (4.30-6.10); RED BLOOD COUNT 2.45 10^6/uL (4.30-6.10); WHITE BLOOD COUNT 9.6 10^3/uL (4.0-10.0); WHITE BLOOD COUNT 9.7 10^3/uL (4.0-10.0)
[2021-12-21 05:59] LABS: BLOOD UREA NITROGEN 10 MG/DL (7-18); CARBON DIOXIDE LEVEL 26 MEQ/L (21-32); CHLORIDE LEVEL 107 MEQ/L (98-107); CREATININE FOR GFR 1.05 MG/DL (0.70-1.30); GLOMERULAR FILTRATION RATE > 60.0 (>42); GLUCOSE, FASTING 112 MG/DL (70-100); MAGNESIUM LEVEL 1.8 MG/DL (1.8-2.4); POTASSIUM SERUM 3.4 MEQ/L (3.5-5.1); SODIUM LEVEL 139 MEQ/L (136-145)
[2021-12-21] MEDS: HumaLOG INSULIN (NovoLOG) PER UNIT SC SCH ×4 (07:30→21:00)
[2021-12-21] MEDS ORDERED: propofoL 200 MG/20 ML VIAL As Ordered ONE (09:18)
[2021-12-21] MEDS ORDERED: LIDOCAINE 2% 100MG/5ML SDV (FOR ANES.) As Ordered ONE (09:18)
[2021-12-21] MEDS ORDERED: PHENYLephrine 500MCG 5ML (100MCG/ML) SYRINGE As Ordered ONE (09:30)
[2021-12-21] MEDS ORDERED: MAG SULF 1GM/100ML (MAG RUN) 1 GM in IV 1 EA IV ONE (10:00)
[2021-12-21] MEDS: SUCRALFATE SUSP 1GM/10ML UD PO SCH ×4 (10:16→21:14)
[2021-12-21] MEDS: oxyCODONE 5MG TAB PO PRN ×3 (10:32→23:36)
[2021-12-21] MEDS: MAGNESIUM OXIDE 400MG TAB (MAG-OX) PO SCH (10:41)
[2021-12-21] MEDS: VITAMIN D 1,000 INTERNATIONAL UNITS TABLET PO SCH (10:41)
[2021-12-21] MEDS: AMIODARONE 200 MG TAB (PACERONE) PO SCH (10:41)
[2021-12-21] MEDS: GABAPENTIN 300 MG CAP PO SCH ×3 (10:42→21:14)
[2021-12-21] MEDS: CLOPIDOGREL 75 MG TAB PO SCH (10:42)
[2021-12-21] MEDS: FENOFIBRATE 145MG TABLET (TRICOR) PO SCH (10:42)
[2021-12-21] MEDS: PANTOPRAZOLE 40MG VIAL (C9113 PER 1) IV SCH ×2 (10:42→21:14)
[2021-12-21] MEDS: FERROUS SULFATE 325MG TAB PO SCH ×2 (10:42→21:15)
[2021-12-21] MEDS: MOM 30ML SUSPENSION UDC PO SCH ×2 (10:43→21:14)
[2021-12-21] MEDS: KCL 10MEQ/100ML SWI (KRUN) 10 MEQ in IV 1 EA IV SCH ×4 (11:09→15:00)
[2021-12-21] MEDS ORDERED: POTASSIUM CHLORIDE 10MEQ SR TABLET PO ONE (16:10)
[2021-12-21] MEDS: tiZANidine 4 MG TAB PO PRN ×2 (17:32→23:36)
[2021-12-21] MEDS: NIACIN SR (NIASPAN) 500MG TAB PO SCH (21:14)
[2021-12-21] MEDS: ATORVASTATIN 20 MG TAB PO SCH (21:15)
[2021-12-22 00:08] VITALS: BP 103/57
[2021-12-22 03:52] LABS: HEMATOCRIT 27.7 % (42.0-52.0); HEMOGLOBIN 9.2 g/dl (13.5-17.5); MEAN CORPUSCULAR HEMOGLOBIN 31.7 pg (27.0-33.0); MEAN CORPUSCULAR HGB CONC 33.2 g/dl (32.0-36.5); MEAN CORPUSCULAR VOLUME 95.5 fl (80.0-96.0); PLATELET COUNT, AUTOMATED 380 10^3/uL (150-450); WHITE BLOOD COUNT 9.8 10^3/uL (4.0-10.0)
[2021-12-22 04:14] LABS: BLOOD UREA NITROGEN 5 MG/DL (7-18); CALCIUM LEVEL 8.2 MG/DL (8.8-10.2); CARBON DIOXIDE LEVEL 26 MEQ/L (21-32); CHLORIDE LEVEL 110 MEQ/L (98-107); CREATININE FOR GFR 0.98 MG/DL (0.70-1.30); GLOMERULAR FILTRATION RATE > 60.0 (>42); GLUCOSE, FASTING 104 MG/DL (70-100); MAGNESIUM LEVEL 2.1 MG/DL (1.8-2.4); POTASSIUM SERUM 3.9 MEQ/L (3.5-5.1); SODIUM LEVEL 142 MEQ/L (136-145)
[2021-12-22 04:25] VITALS: BP 116/58
[2021-12-22] MEDS: tiZANidine 4 MG TAB PO PRN ×3 (06:39→22:04)
[2021-12-22] MEDS: oxyCODONE 5MG TAB PO PRN ×3 (06:39→22:03)
[2021-12-22] MEDS: HumaLOG INSULIN (NovoLOG) PER UNIT SC SCH ×4 (07:30→20:39)
[2021-12-22 08:28] VITALS: BP 96/53
[2021-12-22] MEDS: GABAPENTIN 300 MG CAP PO SCH ×3 (09:13→20:35)
[2021-12-22] MEDS: VITAMIN D 1,000 INTERNATIONAL UNITS TABLET PO SCH (09:13)
[2021-12-22] MEDS: AMIODARONE 200 MG TAB (PACERONE) PO SCH (09:13)
[2021-12-22] MEDS: CLOPIDOGREL 75 MG TAB PO SCH (09:13)
[2021-12-22] MEDS: FENOFIBRATE 145MG TABLET (TRICOR) PO SCH (09:13)
[2021-12-22] MEDS: SUCRALFATE SUSP 1GM/10ML UD PO SCH ×4 (09:14→20:35)
[2021-12-22] MEDS: PANTOPRAZOLE 40MG VIAL (C9113 PER 1) IV SCH ×2 (09:14→20:35)
[2021-12-22] MEDS: MOM 30ML SUSPENSION UDC PO SCH ×2 (09:14→20:35)
[2021-12-22] MEDS: MAGNESIUM OXIDE 400MG TAB (MAG-OX) PO SCH (09:14)
[2021-12-22] MEDS: FERROUS SULFATE 325MG TAB PO SCH ×2 (09:14→20:36)
[2021-12-22 16:00] VITALS: BP 104/63
[2021-12-22] MEDS: ATORVASTATIN 20 MG TAB PO SCH (20:35)
[2021-12-22] MEDS: NIACIN SR (NIASPAN) 500MG TAB PO SCH (20:39)
[2021-12-23] VITALS: BP 105/67
[2021-12-23 04:04] LABS: HEMATOCRIT 29.1 % (42.0-52.0); HEMOGLOBIN 9.8 g/dl (13.5-17.5); MEAN CORPUSCULAR HGB CONC 33.7 g/dl (32.0-36.5); MEAN CORPUSCULAR VOLUME 95.1 fl (80.0-96.0); PLATELET COUNT, AUTOMATED 424 10^3/uL (150-450); RED BLOOD COUNT 3.06 10^6/uL (4.30-6.10); WHITE BLOOD COUNT 8.5 10^3/uL (4.0-10.0)
[2021-12-23 04:35] LABS: BLOOD UREA NITROGEN 5 MG/DL (7-18); CALCIUM LEVEL 8.6 MG/DL (8.8-10.2); CARBON DIOXIDE LEVEL 24 MEQ/L (21-32); CHLORIDE LEVEL 109 MEQ/L (98-107); CREATININE FOR GFR 1.03 MG/DL (0.70-1.30); GLOMERULAR FILTRATION RATE > 60.0 (>42); GLUCOSE, FASTING 123 MG/DL (70-100); MAGNESIUM LEVEL 2.1 MG/DL (1.8-2.4); POTASSIUM SERUM 4.2 MEQ/L (3.5-5.1); SODIUM LEVEL 142 MEQ/L (136-145)
[2021-12-23 08:00] VITALS: BP 125/61
[2021-12-23] MEDS: GABAPENTIN 300 MG CAP PO SCH ×3 (08:06→20:42)
[2021-12-23] MEDS: HumaLOG INSULIN (NovoLOG) PER UNIT SC SCH ×4 (08:06→20:23)
[2021-12-23] MEDS: SUCRALFATE SUSP 1GM/10ML UD PO SCH ×4 (08:06→20:41)
[2021-12-23] MEDS: PANTOPRAZOLE 40MG VIAL (C9113 PER 1) IV SCH ×2 (08:06→20:42)
[2021-12-23] MEDS: FENOFIBRATE 145MG TABLET (TRICOR) PO SCH (08:06)
[2021-12-23] MEDS: VITAMIN D 1,000 INTERNATIONAL UNITS TABLET PO SCH (08:06)
[2021-12-23] MEDS: CLOPIDOGREL 75 MG TAB PO SCH (08:06)
[2021-12-23] MEDS: oxyCODONE 5MG TAB PO PRN ×3 (08:07→20:50)
[2021-12-23] MEDS: FERROUS SULFATE 325MG TAB PO SCH ×2 (08:07→20:42)
[2021-12-23] MEDS: AMIODARONE 200 MG TAB (PACERONE) PO SCH (08:07)
[2021-12-23] MEDS: MAGNESIUM OXIDE 400MG TAB (MAG-OX) PO SCH (08:07)
[2021-12-23] MEDS: MOM 30ML SUSPENSION UDC PO SCH ×2 (08:08→20:40)
[2021-12-23] MEDS: tiZANidine 4 MG TAB PO PRN ×3 (08:08→20:49)
[2021-12-23] MEDS ORDERED: HEPARIN SOD (PORCINE) 5000UNITS/ML 1ML VIAL/SYRINGE IV PRN (08:50)
[2021-12-23] MEDS ORDERED: HEPARIN DRIP 25,000 UNITS in IV 1 EA IV SCH (08:50)
[2021-12-23] MEDS ORDERED: APIXABAN 5 MG TAB (ELIQUIS) PO SCH (09:00)
[2021-12-23 16:00] VITALS: BP 149/79
[2021-12-23 20:00] VITALS: BP 106/55
[2021-12-23] MEDS: ATORVASTATIN 20 MG TAB PO SCH (20:41)
[2021-12-23] MEDS: NIACIN SR (NIASPAN) 500MG TAB PO SCH (21:49)
[2021-12-24 01:56] LABS: MEAN CORPUSCULAR HEMOGLOBIN 32.3 pg (27.0-33.0); MEAN CORPUSCULAR HGB CONC 33.3 g/dl (32.0-36.5); MEAN CORPUSCULAR VOLUME 96.8 fl (80.0-96.0); PLATELET COUNT, AUTOMATED 439 10^3/uL (150-450); WHITE BLOOD COUNT 10.5 10^3/uL (4.0-10.0)
[2021-12-24 02:27] LABS: BLOOD UREA NITROGEN 8 MG/DL (7-18); CALCIUM LEVEL 8.7 MG/DL (8.8-10.2); CARBON DIOXIDE LEVEL 24 MEQ/L (21-32); CHLORIDE LEVEL 107 MEQ/L (98-107); CREATININE FOR GFR 1.08 MG/DL (0.70-1.30); GLOMERULAR FILTRATION RATE > 60.0 (>42); GLUCOSE, FASTING 128 MG/DL (70-100); MAGNESIUM LEVEL 2.1 MG/DL (1.8-2.4); SODIUM LEVEL 139 MEQ/L (136-145)
[2021-12-24 03:51] LABS: INR 0.99; PROTHROMBIN TIME 13.5 SECONDS (12.7-14.5)
[2021-12-24 04:00] VITALS: BP 108/53
[2021-12-24 04:01] LABS: PARTIAL THROMBOPLASTIN TIME 196.1 SECONDS (25.9-37.0)
[2021-12-24] MEDS: tiZANidine 4 MG TAB PO PRN (05:20)
[2021-12-24] MEDS: oxyCODONE 5MG TAB PO PRN (05:21)
[2021-12-24] MEDS: HumaLOG INSULIN (NovoLOG) PER UNIT SC SCH (07:30)
[2021-12-24 08:00] VITALS: BP 109/63
[2021-12-24] MEDS: SUCRALFATE SUSP 1GM/10ML UD PO SCH (08:29)
[2021-12-24] MEDS: GABAPENTIN 300 MG CAP PO SCH (08:30)
[2021-12-24] MEDS: FENOFIBRATE 145MG TABLET (TRICOR) PO SCH (08:30)
[2021-12-24] MEDS: MOM 30ML SUSPENSION UDC PO SCH (08:30)
[2021-12-24] MEDS: FERROUS SULFATE 325MG TAB PO SCH (08:30)
[2021-12-24] MEDS: CLOPIDOGREL 75 MG TAB PO SCH (08:30)
[2021-12-24] MEDS: VITAMIN D 1,000 INTERNATIONAL UNITS TABLET PO SCH (08:31)
[2021-12-24] MEDS: AMIODARONE 200 MG TAB (PACERONE) PO SCH (08:31)
[2021-12-24] MEDS: PANTOPRAZOLE 40MG VIAL (C9113 PER 1) IV SCH (08:31)
[2021-12-24] MEDS: MAGNESIUM OXIDE 400MG TAB (MAG-OX) PO SCH (08:31)
[2021-12-24] MEDS ORDERED: PANT40TA29 PO (09:32)
[2021-12-24] MEDS ORDERED: SUCR1TA PO (09:32)
[2021-12-24 11:05] LABS: INR 0.95; PROTHROMBIN TIME 13.1 SECONDS (12.7-14.5)
[2021-12-24 11:07] LABS: PARTIAL THROMBOPLASTIN TIME 68.1 SECONDS (25.9-37.0)
== END 2021-12-24 12:13 | disposition home or self-care (01) | DRG 378 ==
LOC: EDBD 09:00 → M ED 09:00 → M ED INP 12:02 → M PCU 12-20 01:00
PROVIDERS: ADMIT Internal Medicine; ATTEND Internal Medicine
PROC: 30233N1 Transfusion of Nonautologous Red Blood Cells into Peripheral Vein, Percutaneous Approach (ICD-10-PCS; principal; 2021-12-19)
PROC: 0DJ08ZZ Inspection of Upper Intestinal Tract, Via Natural or Artificial Opening Endoscopic (ICD-10-PCS; 2021-12-21)
PROC: 0DJD8ZZ Inspection of Lower Intestinal Tract, Via Natural or Artificial Opening Endoscopic (ICD-10-PCS; 2021-12-21)
DX: K29.71 Gastritis, unspecified, with bleeding (principal); I48.20 Chronic atrial fibrillation, unspecified; D62 Acute posthemorrhagic anemia; I48.92 Unspecified atrial flutter; I25.10 Atherosclerotic heart disease of native coronary artery without angina pectoris; E11.9 Type 2 diabetes mellitus without complications; I11.0 Hypertensive heart disease with heart failure; K21.9 Gastro-esophageal reflux disease without esophagitis; J44.9 Chronic obstructive pulmonary disease, unspecified; E83.42 Hypomagnesemia; Z95.5 Presence of coronary angioplasty implant and graft; E78.5 Hyperlipidemia, unspecified; F32.A Depression, unspecified; I44.0 Atrioventricular block, first degree; L40.9 Psoriasis, unspecified; F17.200 Nicotine dependence, unspecified, uncomplicated; M19.90 Unspecified osteoarthritis, unspecified site; M54.50 Low back pain, unspecified; Z96.611 Presence of right artificial shoulder joint; Z90.2 Acquired absence of lung [part of]; I50.9 Heart failure, unspecified; Z79.01 Long term (current) use of anticoagulants; Z79.84 Long term (current) use of oral hypoglycemic drugs; Z79.899 Other long term (current) drug therapy; Z20.822 Contact with and (suspected) exposure to COVID-19; E87.6 Hypokalemia; Z85.118 Personal history of other malignant neoplasm of bronchus and lung

== ENCOUNTER 2021-12-28 10:08 | Inpatient (IN) | payer MEDICARE ==
[~2021-12-28] VITALS: Ht 172.7 cm; Wt 75.5 kg
[2021-12-28] MEDS: FERROUS SULFATE 325MG TAB PO SCH ×2 (09:00→20:25)
[~2021-12-28 10:08] MED LIST changes: +ALBU83IN INH; +ELIQ5TAB PO; +FERR325T3 PO; +FURO20TA2 PO; +NEUR300C PO; +NITR0.4S14 SL; +PACE200T PO; +PANT40TA29 PO; +PLAV1TAB2 PO; +SUCR1TA PO; +VARE1TAB2 PO
[2021-12-28] MEDS ORDERED: PANTOPRAZOLE 40MG VIAL (C9113 PER 1) IV ONE (10:30)
[2021-12-28 10:55] LABS: BASO # 0.1 10^3/uL (0.0-0.2); BASO % 0.4 % (0.0-1.0); EOS # 0.1 10^3/uL (0.0-0.5); EOS % 0.6 % (0.0-3.0); HEMATOCRIT 31.9 % (42.0-52.0); HEMOGLOBIN 10.3 g/dl (13.5-17.5); LYMPH # 1.6 10^3/uL (1.5-5.0); LYMPH % 11.7 % (24.0-44.0); MEAN CORPUSCULAR HGB CONC 32.3 g/dl (32.0-36.5); MEAN CORPUSCULAR VOLUME 99.1 fl (80.0-96.0); MONO # 0.8 10^3/uL (0.0-0.8); MONO % 5.9 % (2.0-8.0); NEUTROPHILS % 80.8 % (36.0-66.0); PLATELET COUNT, AUTOMATED 451 10^3/uL (150-450); RED BLOOD COUNT 3.22 10^6/uL (4.30-6.10); WHITE BLOOD COUNT 13.6 10^3/uL (4.0-10.0)
[2021-12-28 11:11] LABS: INR 1.32; PROTHROMBIN TIME 16.8 SECONDS (12.7-14.5)
[2021-12-28 11:12] LABS: PARTIAL THROMBOPLASTIN TIME 63.7 SECONDS (25.9-37.0)
[2021-12-28 11:28] LABS: ALBUMIN 3.2 GM/DL (3.2-5.2); BILIRUBIN,DIRECT 0.2 MG/DL (0.0-0.2); BILIRUBIN,TOTAL 0.6 MG/DL (0.2-1.0); CALCIUM LEVEL 9.5 MG/DL (8.8-10.2); CREATININE FOR GFR 1.39 MG/DL (0.70-1.30); GLOMERULAR FILTRATION RATE 53.3 (>42); POTASSIUM SERUM 4.1 MEQ/L (3.5-5.1)
[2021-12-28] MEDS ORDERED: NS 1,000 ML IV ONE (11:35)
[2021-12-28] MEDS: HumaLOG INSULIN (NovoLOG) PER UNIT SC SCH ×3 (12:00→20:05)
[2021-12-28] MEDS: NS 1,000 ML IV SCH ×2 (13:15→21:52)
[2021-12-28] MEDS: PANTOPRAZOLE SODIUM 40 MG in D5W 50 ML IV SCH ×3 (13:15→23:20)
[2021-12-28] MEDS ORDERED: IPRATROPIUM 0.5MG/ALBUTEROL 2.5MG INH SOL UD 3ML (DUONEB) NEB PRN (13:40)
[2021-12-28] MEDS ORDERED: TREL1AER INH (13:59)
[2021-12-28] MEDS ORDERED: HOME MED LIST COMPLETE! XX SCH (14:00)
[2021-12-28 14:27] LABS: HEMATOCRIT 26.8 % (42.0-52.0); HEMOGLOBIN 8.8 g/dl (13.5-17.5)
[2021-12-28 14:27] LABS: RSV AMPLIFICATION NEGATIVE (NEGATIVE)
[2021-12-28] MEDS ORDERED: GLUCAGON INJ 1MG VIAL SC PRN (14:30)
[2021-12-28] MEDS ORDERED: GLUCOSE 4GM CHEW TABLET PO PRN (14:30)
[2021-12-28] MEDS ORDERED: DEXTROSE 50% 50 ML SYRINGE IV PRN (14:30)
[2021-12-28 15:37] VITALS: BP 99/52
[2021-12-28 15:54] VITALS: BP 120/62
[2021-12-28 16:29] VITALS: BP 132/63
[2021-12-28] MEDS: SUCRALFATE 1 GM TAB PO SCH ×2 (16:43→20:24)
[2021-12-28] MEDS: GABAPENTIN 300 MG CAP PO SCH ×2 (16:43→20:25)
[2021-12-28] MEDS: oxyCODONE 5MG TAB PO PRN ×2 (16:44→23:21)
[2021-12-28 17:00] VITALS: BP 133/65
[2021-12-28 18:36] VITALS: BP 140/68
[2021-12-28 19:32] LABS: HEMATOCRIT 29.5 % (42.0-52.0); HEMOGLOBIN 9.8 g/dl (13.5-17.5)
[2021-12-28 20:00] VITALS: BP 107/56
[2021-12-28] MEDS: ATORVASTATIN 20 MG TAB PO SCH (20:24)
[2021-12-28] MEDS ORDERED: CAPSAICIN 0.025% CR 60 GM TOP SCH (21:00)
[2021-12-29] VITALS: BP 118/60
[2021-12-29 01:27] LABS: HEMATOCRIT 28.2 % (42.0-52.0); HEMOGLOBIN 9.6 g/dl (13.5-17.5)
[2021-12-29] MEDS: PANTOPRAZOLE SODIUM 40 MG in D5W 50 ML IV SCH ×4 (03:48→21:38)
[2021-12-29 04:00] VITALS: BP 112/58
[2021-12-29] MEDS: NS 1,000 ML IV SCH (05:15)
[2021-12-29] MEDS: oxyCODONE 5MG TAB PO PRN ×3 (05:18→18:35)
[2021-12-29 05:28] LABS: HEMOGLOBIN 9.4 g/dl (13.5-17.5); MEAN CORPUSCULAR HEMOGLOBIN 32.2 pg (27.0-33.0); MEAN CORPUSCULAR HGB CONC 33.6 g/dl (32.0-36.5); MEAN CORPUSCULAR VOLUME 95.9 fl (80.0-96.0); RED BLOOD COUNT 2.92 10^6/uL (4.30-6.10); WHITE BLOOD COUNT 8.5 10^3/uL (4.0-10.0)
[2021-12-29 05:32] LABS: PLATELET COUNT, AUTOMATED 341 10^3/uL (150-450)
[2021-12-29 05:47] LABS: BLOOD UREA NITROGEN 17 MG/DL (7-18); CALCIUM LEVEL 8.2 MG/DL (8.8-10.2); CARBON DIOXIDE LEVEL 26 MEQ/L (21-32); CHLORIDE LEVEL 108 MEQ/L (98-107); CREATININE FOR GFR 1.01 MG/DL (0.70-1.30); GLOMERULAR FILTRATION RATE > 60.0 (>42); GLUCOSE, FASTING 89 MG/DL (70-100); MAGNESIUM LEVEL 1.5 MG/DL (1.8-2.4); PHOSPHORUS LEVEL 3.2 MG/DL (2.5-4.9); SODIUM LEVEL 140 MEQ/L (136-145)
[2021-12-29] MEDS: HumaLOG INSULIN (NovoLOG) PER UNIT SC SCH ×4 (07:22→21:00)
[2021-12-29 08:02] VITALS: BP 119/56
[2021-12-29] MEDS: CLOPIDOGREL 75 MG TAB PO SCH (08:58)
[2021-12-29] MEDS: GABAPENTIN 300 MG CAP PO SCH ×3 (08:58→21:34)
[2021-12-29] MEDS: AMIODARONE 200 MG TAB (PACERONE) PO SCH (08:58)
[2021-12-29] MEDS: SUCRALFATE 1 GM TAB PO SCH ×4 (08:58→21:34)
[2021-12-29] MEDS: FERROUS SULFATE 325MG TAB PO SCH ×2 (08:59→21:34)
[2021-12-29] MEDS: MAG SULF 1GM/100ML (MAG RUN) 1 GM in IV 1 EA IV SCH ×2 (11:21→12:21)
[2021-12-29 12:00] VITALS: BP 118/66
[2021-12-29 14:21] LABS: HEMATOCRIT 32.4 % (42.0-52.0); HEMOGLOBIN 10.8 g/dl (13.5-17.5)
[2021-12-29 16:00] VITALS: BP 128/65
[2021-12-29 19:50] VITALS: BP 109/55
[2021-12-29] MEDS: ATORVASTATIN 20 MG TAB PO SCH (21:34)
[2021-12-29 21:55] LABS: HEMATOCRIT 31.2 % (42.0-52.0); HEMOGLOBIN 10.4 g/dl (13.5-17.5)
[2021-12-30] VITALS: BP 99/58
[2021-12-30] MEDS: oxyCODONE 5MG TAB PO PRN ×4 (01:01→19:52)
[2021-12-30] MEDS: PANTOPRAZOLE SODIUM 40 MG in D5W 50 ML IV SCH ×5 (01:38→21:34)
[2021-12-30 04:00] VITALS: BP 109/59
[2021-12-30 05:51] LABS: HEMATOCRIT 28.6 % (42.0-52.0); HEMOGLOBIN 9.8 g/dl (13.5-17.5); MEAN CORPUSCULAR HEMOGLOBIN 32.6 pg (27.0-33.0); MEAN CORPUSCULAR HGB CONC 34.3 g/dl (32.0-36.5); PLATELET COUNT, AUTOMATED 366 10^3/uL (150-450); RED BLOOD COUNT 3.01 10^6/uL (4.30-6.10); WHITE BLOOD COUNT 8.1 10^3/uL (4.0-10.0)
[2021-12-30 06:13] LABS: BLOOD UREA NITROGEN 10 MG/DL (7-18); CALCIUM LEVEL 8.5 MG/DL (8.8-10.2); CARBON DIOXIDE LEVEL 26 MEQ/L (21-32); CHLORIDE LEVEL 111 MEQ/L (98-107); CREATININE FOR GFR 0.87 MG/DL (0.70-1.30); GLOMERULAR FILTRATION RATE > 60.0 (>42); GLUCOSE, FASTING 94 MG/DL (70-100); MAGNESIUM LEVEL 1.6 MG/DL (1.8-2.4); PHOSPHORUS LEVEL 3.6 MG/DL (2.5-4.9); POTASSIUM SERUM 3.7 MEQ/L (3.5-5.1); SODIUM LEVEL 143 MEQ/L (136-145)
[2021-12-30] MEDS: HumaLOG INSULIN (NovoLOG) PER UNIT SC SCH ×4 (07:30→20:07)
[2021-12-30 07:35] VITALS: BP 115/58
[2021-12-30] MEDS: SUCRALFATE 1 GM TAB PO SCH ×4 (08:45→20:06)
[2021-12-30] MEDS: AMIODARONE 200 MG TAB (PACERONE) PO SCH (08:45)
[2021-12-30] MEDS: GABAPENTIN 300 MG CAP PO SCH ×3 (08:45→20:06)
[2021-12-30] MEDS: FERROUS SULFATE 325MG TAB PO SCH ×2 (08:45→20:06)
[2021-12-30] MEDS: CLOPIDOGREL 75 MG TAB PO SCH (08:45)
[2021-12-30 12:06] LABS: HEMATOCRIT 29.1 % (42.0-52.0); HEMOGLOBIN 9.8 g/dl (13.5-17.5)
[2021-12-30 12:47] VITALS: BP 119/63
[2021-12-30 16:30] VITALS: BP 115/63
[2021-12-30 18:23] LABS: HEMATOCRIT 30.7 % (42.0-52.0); HEMOGLOBIN 10.3 g/dl (13.5-17.5)
[2021-12-30 20:00] VITALS: BP 101/56
[2021-12-30] MEDS: ATORVASTATIN 20 MG TAB PO SCH (20:06)
[2021-12-31] VITALS: BP 110/62
[2021-12-31 00:23] LABS: HEMATOCRIT 30.6 % (42.0-52.0); HEMOGLOBIN 10.3 g/dl (13.5-17.5)
[2021-12-31] MEDS: PANTOPRAZOLE SODIUM 40 MG in D5W 50 ML IV SCH (02:30)
[2021-12-31] MEDS: oxyCODONE 5MG TAB PO PRN ×3 (02:30→14:27)
[2021-12-31 04:00] VITALS: BP 122/66
[2021-12-31 05:00] LABS: MEAN CORPUSCULAR HEMOGLOBIN 31.9 pg (27.0-33.0); MEAN CORPUSCULAR HGB CONC 33.3 g/dl (32.0-36.5); MEAN CORPUSCULAR VOLUME 95.8 fl (80.0-96.0); PLATELET COUNT, AUTOMATED 384 10^3/uL (150-450); RED BLOOD COUNT 3.13 10^6/uL (4.30-6.10); WHITE BLOOD COUNT 7.4 10^3/uL (4.0-10.0)
[2021-12-31 05:26] LABS: BLOOD UREA NITROGEN 9 MG/DL (7-18); CALCIUM LEVEL 8.9 MG/DL (8.8-10.2); CARBON DIOXIDE LEVEL 24 MEQ/L (21-32); CHLORIDE LEVEL 107 MEQ/L (98-107); GLOMERULAR FILTRATION RATE > 60.0 (>42); GLUCOSE, FASTING 97 MG/DL (70-100); MAGNESIUM LEVEL 1.4 MG/DL (1.8-2.4); POTASSIUM SERUM 3.7 MEQ/L (3.5-5.1); SODIUM LEVEL 138 MEQ/L (136-145)
[2021-12-31] MEDS: HumaLOG INSULIN (NovoLOG) PER UNIT SC SCH ×2 (07:30→12:10)
[2021-12-31 08:00] VITALS: BP 123/66
[2021-12-31] MEDS: CLOPIDOGREL 75 MG TAB PO SCH (08:32)
[2021-12-31] MEDS: FERROUS SULFATE 325MG TAB PO SCH (08:32)
[2021-12-31] MEDS: GABAPENTIN 300 MG CAP PO SCH (08:32)
[2021-12-31] MEDS: AMIODARONE 200 MG TAB (PACERONE) PO SCH (08:33)
[2021-12-31] MEDS: SUCRALFATE 1 GM TAB PO SCH ×2 (08:33→12:10)
[2021-12-31] MEDS ORDERED: PANTOPRAZOLE 40MG TAB (PROTONIX) PO SCH (09:00)
[2021-12-31] MEDS: MAG SULF 1GM/100ML (MAG RUN) 1 GM in IV 1 EA IV SCH ×2 (09:59→11:02)
[2021-12-31 12:00] VITALS: BP 105/59
[2021-12-31 12:30] LABS: HEMATOCRIT 30.7 % (42.0-52.0); HEMOGLOBIN 10.4 g/dl (13.5-17.5)
[2021-12-31] MEDS ORDERED: MAGN400T2 PO (12:36)
[2022-01-01] MEDS ORDERED: MAGNESIUM OXIDE 400MG TAB (MAG-OX) PO SCH (09:00)
== END 2021-12-31 14:52 | disposition home or self-care (01) | DRG 378 ==
LOC: EDBD 10:08 → M ED 10:08 → M ED INP 12:54 → M PCU 16:15
PROVIDERS: ADMIT Internal Medicine; ATTEND Internal Medicine
DX: K92.2 Gastrointestinal hemorrhage, unspecified (principal); I48.20 Chronic atrial fibrillation, unspecified; D62 Acute posthemorrhagic anemia; I50.22 Chronic systolic (congestive) heart failure; I25.10 Atherosclerotic heart disease of native coronary artery without angina pectoris; Z95.5 Presence of coronary angioplasty implant and graft; E78.5 Hyperlipidemia, unspecified; I11.0 Hypertensive heart disease with heart failure; J44.9 Chronic obstructive pulmonary disease, unspecified; E11.9 Type 2 diabetes mellitus without complications; F32.A Depression, unspecified; K21.9 Gastro-esophageal reflux disease without esophagitis; I44.0 Atrioventricular block, first degree; F17.210 Nicotine dependence, cigarettes, uncomplicated; M19.90 Unspecified osteoarthritis, unspecified site; L40.9 Psoriasis, unspecified; M54.50 Low back pain, unspecified; G89.29 Other chronic pain; Z85.118 Personal history of other malignant neoplasm of bronchus and lung; Z90.2 Acquired absence of lung [part of]; Z96.611 Presence of right artificial shoulder joint; Z79.01 Long term (current) use of anticoagulants; Z79.84 Long term (current) use of oral hypoglycemic drugs; Z79.899 Other long term (current) drug therapy; E83.42 Hypomagnesemia

== ENCOUNTER → 2022-01-13 | Outpatient (REF) | payer MEDICARE ==
[~2022-01-13] MED LIST changes: +MAGN400T2 PO; +TREL1AER INH
[2022-01-13 15:45] LABS: BASO # 0.1 10^3/uL (0.0-0.2); BASO % 0.7 % (0.0-1.0); EOS # 0.1 10^3/uL (0.0-0.5); EOS % 1.3 % (0.0-3.0); HEMATOCRIT 34.8 % (42.0-52.0); HEMOGLOBIN 11.7 g/dl (13.5-17.5); LYMPH # 1.4 10^3/uL (1.5-5.0); LYMPH % 13.6 % (24.0-44.0); MEAN CORPUSCULAR HEMOGLOBIN 32.5 pg (27.0-33.0); MEAN CORPUSCULAR HGB CONC 33.6 g/dl (32.0-36.5); MEAN CORPUSCULAR VOLUME 96.7 fl (80.0-96.0); MONO # 0.6 10^3/uL (0.0-0.8); MONO % 6.1 % (2.0-8.0); NEUTROPHILS # 7.9 10^3/uL (1.5-8.5); NEUTROPHILS % 77.8 % (36.0-66.0); PLATELET COUNT, AUTOMATED 435 10^3/uL (150-450); WHITE BLOOD COUNT 10.1 10^3/uL (4.0-10.0)
== END ==
LOC: M LABDRWAD 15:00
PROVIDERS: ATTEND Family Medicine
DX: D64.9 Anemia, unspecified (principal)

== ENCOUNTER → 2022-01-16 | Outpatient (CLI) | payer MEDICARE | LOC: M PLARAD 08:50 | PROVIDERS: ATTEND Internal Medicine Pulmonary Disease | DX: C34.11 Malignant neoplasm of upper lobe, right bronchus or lung (principal) | CPT/HCPCS: 78815; A9552 ==

== ENCOUNTER → 2022-03-29 | Outpatient (CLI) | payer MEDICARE ==
[2022-03-29 17:05] LABS: HEMATOCRIT 38.7 % (42.0-52.0); HEMOGLOBIN 13.1 g/dl (13.5-17.5); MEAN CORPUSCULAR HEMOGLOBIN 31.9 pg (27.0-33.0); MEAN CORPUSCULAR HGB CONC 33.9 g/dl (32.0-36.5); MEAN CORPUSCULAR VOLUME 94.2 fl (80.0-96.0); PLATELET COUNT, AUTOMATED 309 10^3/uL (150-450); RED BLOOD COUNT 4.11 10^6/uL (4.30-6.10); WHITE BLOOD COUNT 10.8 10^3/uL (4.0-10.0)
[2022-03-29 17:36] LABS: BILIRUBIN,TOTAL 0.3 MG/DL (0.2-1.0); CALCIUM LEVEL 9.1 MG/DL (8.8-10.2); CHOLESTEROL RISK RATIO 2.711 (<5); CREATININE FOR GFR 1.43 MG/DL (0.70-1.30); GLOMERULAR FILTRATION RATE 51.5 (>42); MAGNESIUM LEVEL 1.5 MG/DL (1.8-2.4); POTASSIUM SERUM 3.2 MEQ/L (3.5-5.1); THYROID STIMULATING HORMONE 10.6 uIU/ML (0.358-3.740); TOTAL PROTEIN 7.6 GM/DL (6.4-8.2)
== END ==
LOC: M ADAMS 12:51
PROVIDERS: ATTEND Physician Assistant
DX: I50.32 Chronic diastolic (congestive) heart failure (principal); I48.0 Paroxysmal atrial fibrillation; I48.3 Typical atrial flutter; E78.2 Mixed hyperlipidemia

== ENCOUNTER → 2022-04-04 | Outpatient (CLI) | payer MEDICARE ==
[~2022-04-04] MED LIST changes: +ALBU2.5V10 INH; -ALBU83IN INH
[2022-04-04 17:43] LABS: FREE T4 1.11 NG/DL (0.76-1.46); THYROID STIMULATING HORMONE 6.07 uIU/ML (0.358-3.740)
== END ==
LOC: M ADAMS 13:14
PROVIDERS: ATTEND Family Medicine
DX: E07.9 Disorder of thyroid, unspecified (principal)

== ENCOUNTER → 2022-04-13 | Outpatient (CLI) | payer MEDICARE ==
[2022-04-13 13:17] LABS: CALCIUM LEVEL 10.2 MG/DL (8.8-10.2); CREATININE FOR GFR 1.36 MG/DL (0.70-1.30); GLOMERULAR FILTRATION RATE 54.5 (>42); MAGNESIUM LEVEL 1.8 MG/DL (1.8-2.4)
== END ==
LOC: M ADAMS 09:23
PROVIDERS: ATTEND Physician Assistant
DX: I50.32 Chronic diastolic (congestive) heart failure (principal); E83.42 Hypomagnesemia

== ENCOUNTER → 2022-05-07 | Outpatient (CLI) | payer MEDICARE ==
[~2022-05-07] MED LIST changes: +INCR1INH INH; +MAGN400C PO
== END ==
LOC: M LABSMTC 10:16
PROVIDERS: ATTEND Anesthesiology
DX: Z01.812 Encounter for preprocedural laboratory examination (principal); Z20.822 Contact with and (suspected) exposure to COVID-19

== ENCOUNTER 2022-05-10 06:59 | Day surgery (SDC) | payer MEDICARE ==
[~2022-05-10] VITALS: Ht 172.7 cm; Wt 80.0 kg
[~2022-05-10 06:59] MED LIST changes: +ALBUTEROL SULFATE 2.5 MG/0.5 ML INH NEB SOLN INH ONE; +LIDOCAINE 4% INJ 5ML AMP INH ONE
[2022-05-10 07:33] VITALS: BP 131/67
[2022-05-10] MEDS ORDERED: LR 1,000 ML IV SCH (07:50)
== END 2022-05-10 08:34 | disposition home or self-care (01) ==
LOC: M SDC 06:59
PROVIDERS: ATTEND Internal Medicine Pulmonary Disease
DX: R59.0 Localized enlarged lymph nodes (principal); Z53.09 Procedure and treatment not carried out because of other contraindication

== ENCOUNTER 2022-05-24 07:57 | Day surgery (SDC) | payer MEDICARE ==
[~2022-05-24] VITALS: Ht 172.7 cm; Wt 79.7 kg
[~2022-05-24 07:57] MED LIST changes: -ALBUTEROL SULFATE 2.5 MG/0.5 ML INH NEB SOLN INH ONE; +CETACAINE SPRAY 5GM As Ordered ONE; +EPINEPHrine 1MG/10ML SYRINGE 1.5IN As Ordered ONE; -LIDOCAINE 4% INJ 5ML AMP INH ONE
[2022-05-24] MEDS ORDERED: LR 1,000 ML IV SCH ×2 (08:35→11:20)
[2022-05-24] MEDS ORDERED: ROCURONIUM BROMIDE 50 MG/5 ML VIAL As Ordered ONE (08:53)
[2022-05-24] MEDS ORDERED: fentaNYL 100 MCG/2 ML INJECTION As Ordered ONE (08:54)
[2022-05-24] MEDS ORDERED: dexameTHASONE 4 MG/ML 1ML VIAL (J1100 PER 1MG) As Ordered ONE (08:56)
[2022-05-24] MEDS ORDERED: LIDOCAINE 2% 100MG/5ML SDV (FOR ANES.) As Ordered ONE (08:57)
[2022-05-24] MEDS ORDERED: LIDOCAINE 4% INJ 5ML AMP NEB ONE (09:00)
[2022-05-24] MEDS ORDERED: ALBUTEROL SULFATE 2.5 MG/0.5 ML INH NEB SOLN NEB ONE (09:05)
[2022-05-24] MEDS ORDERED: propofoL 200 MG/20 ML VIAL As Ordered ONE (10:31)
[2022-05-24] MEDS ORDERED: SUGAMMADEX SODIUM 500 MG/5 ML VIAL (BRIDION) As Ordered ONE (10:31)
[2022-05-24] MEDS ORDERED: MIDAZOLAM INJ 2MG/2ML VIAL (J2250 PER 1MG) As Ordered ONE (10:32)
[2022-05-24] MEDS ORDERED: ONDANSETRON 4MG 2ML VIAL As Ordered ONE (10:32)
[2022-05-24] MEDS ORDERED: PHENYLephrine 500MCG 5ML (100MCG/ML) SYRINGE As Ordered ONE (10:41)
[2022-05-24] MEDS ORDERED: ONDANSETRON 4MG 2ML VIAL IV PRN (11:20)
[2022-05-24] MEDS ORDERED: oxyCODONE 5MG TAB PO PRN (11:20)
[2022-05-24] MEDS ORDERED: fentaNYL 100 MCG/2 ML INJECTION IV PRN (11:20)
[2022-05-24 11:55] VITALS: BP 125/58
== END 2022-05-24 12:16 | disposition home or self-care (01) ==
LOC: M SDC 07:57
PROVIDERS: ATTEND Internal Medicine Pulmonary Disease
DX: R59.0 Localized enlarged lymph nodes (principal); I48.91 Unspecified atrial fibrillation; I25.10 Atherosclerotic heart disease of native coronary artery without angina pectoris; Z98.61 Coronary angioplasty status; E11.9 Type 2 diabetes mellitus without complications; J44.9 Chronic obstructive pulmonary disease, unspecified; F41.9 Anxiety disorder, unspecified; F32.A Depression, unspecified; K21.9 Gastro-esophageal reflux disease without esophagitis; F17.210 Nicotine dependence, cigarettes, uncomplicated; Z79.02 Long term (current) use of antithrombotics/antiplatelets; Z79.84 Long term (current) use of oral hypoglycemic drugs; Z79.899 Other long term (current) drug therapy; Z79.51 Long term (current) use of inhaled steroids
CPT/HCPCS: 31629; 31654; 71045; 88173; 88305; J1100; J2250; J2370; J2405; J3010

== ENCOUNTER → 2022-08-15 | Outpatient (CLI) | payer MEDICARE ==
[~2022-08-15] MED LIST changes: -CETACAINE SPRAY 5GM As Ordered ONE; -EPINEPHrine 1MG/10ML SYRINGE 1.5IN As Ordered ONE
== END ==
LOC: M RAD 10:41
PROVIDERS: ATTEND Physician Assistant
DX: I65.23 Occlusion and stenosis of bilateral carotid arteries (principal)

== ENCOUNTER → 2022-08-25 | Outpatient (CLI) | payer MEDICARE ==
[2022-08-25 17:50] LABS: CREATININE FOR GFR 1.37 MG/DL (0.70-1.30); GLOMERULAR FILTRATION RATE 54.1 (>42)
== END ==
LOC: M LABDRWAD 10:13
PROVIDERS: ATTEND Internal Medicine Pulmonary Disease
DX: J44.9 Chronic obstructive pulmonary disease, unspecified (principal)

== ENCOUNTER → 2022-08-30 | Outpatient (CLI) | payer MEDICARE ==
[~2022-08-30] MED LIST changes: +ISOVUE-370 76% 100ML VIAL As Ordered ONE
== END ==
LOC: M RAD 14:14
PROVIDERS: ATTEND Internal Medicine Pulmonary Disease
DX: R59.0 Localized enlarged lymph nodes (principal); I70.0 Atherosclerosis of aorta; I25.10 Atherosclerotic heart disease of native coronary artery without angina pectoris; K76.89 Other specified diseases of liver; Z90.2 Acquired absence of lung [part of]
CPT/HCPCS: 71260; Q9967

== ENCOUNTER → 2022-09-07 | Outpatient (CLI) | payer MEDICARE ==
[~2022-09-07] MED LIST changes: +CLOP75TA99 PO; -ISOVUE-370 76% 100ML VIAL As Ordered ONE; -PLAV1TAB2 PO
== END ==
LOC: M PLAIMG 08:43
PROVIDERS: ATTEND Family Medicine
DX: M48.061 Spinal stenosis, lumbar region without neurogenic claudication (principal); M51.26 Other intervertebral disc displacement, lumbar region; M47.816 Spondylosis without myelopathy or radiculopathy, lumbar region

== ENCOUNTER → 2022-11-29 | Outpatient (CLI) | payer MEDICARE | LOC: M ADAMS 08:37 | PROVIDERS: ATTEND Family Medicine | DX: M25.551 Pain in right hip (principal); M25.561 Pain in right knee ==

== ENCOUNTER → 2023-01-04 | Outpatient (CLI) | payer MEDICARE ==
[~2023-01-04] MED LIST changes: -FLUO10TA2; +FLUO1TAB
== END ==
LOC: M RAD 07:47
PROVIDERS: ATTEND Orthopaedic Surgery
DX: M16.0 Bilateral primary osteoarthritis of hip (principal); M70.71 Other bursitis of hip, right hip; M25.451 Effusion, right hip; M25.452 Effusion, left hip

== ENCOUNTER → 2023-01-08 | Outpatient (REF) | payer MEDICARE ==
[2023-01-08 13:51] LABS: BLOOD UREA NITROGEN 20 MG/DL (9-23); CALCIUM LEVEL 8.9 MG/DL (8.3-10.6); CARBON DIOXIDE LEVEL 25 MMOL/L (20-31); CHLORIDE LEVEL 106 MMOL/L (98-107); CREATININE FOR GFR 1.18 MG/DL (0.70-1.30); GLOMERULAR FILTRATION RATE > 60.0 (>42); GLUCOSE, FASTING 104 MG/DL (74-106); SODIUM LEVEL 140 MMOL/L (136-145)
== END ==
LOC: M LABDRWAD 12:55
PROVIDERS: ATTEND Physician Assistant
DX: I50.32 Chronic diastolic (congestive) heart failure (principal)

== ENCOUNTER → 2023-02-02 | Outpatient (CLI) | payer MEDICARE ==
[~2023-02-02] MED LIST changes: +BUPIVACAINE HCL 0.5% 30ML VIAL As Ordered ONE; +ISOVUE-300 61% 100ML VIAL As Ordered ONE; +LIDOCAINE 1% MDV 20ML VIAL As Ordered ONE; +methylPREDNISolone SUSP 40MG/ML 1ML VIAL (DEPO MEDROL) As Ordered ONE
== END ==
LOC: M RAD 12:13
PROVIDERS: ATTEND Orthopaedic Surgery
DX: M16.11 Unilateral primary osteoarthritis, right hip (principal)
CPT/HCPCS: J1030; Q9967

== ENCOUNTER → 2023-02-28 | Outpatient (CLI) | payer MEDICARE ==
[~2023-02-28] MED LIST changes: -BUPIVACAINE HCL 0.5% 30ML VIAL As Ordered ONE; -ISOVUE-300 61% 100ML VIAL As Ordered ONE; -LIDOCAINE 1% MDV 20ML VIAL As Ordered ONE; -methylPREDNISolone SUSP 40MG/ML 1ML VIAL (DEPO MEDROL) As Ordered ONE
== END ==
LOC: M SOG 12:07
PROVIDERS: ATTEND Orthopaedic Surgery
DX: M25.562 Pain in left knee (principal); M17.12 Unilateral primary osteoarthritis, left knee; M25.462 Effusion, left knee

== ENCOUNTER → 2023-04-03 | Outpatient (CLI) | payer MEDICARE ==
[2023-04-03 13:58] LABS: FREE T3 1.7 PG/ML (2.3-4.2); THYROID STIMULATING HORMONE 57.633 uIU/ML (0.55-4.78)
[2023-04-03 13:59] LABS: FREE T4 0.65 NG/DL (0.89-1.76)
== END ==
LOC: M ADAMS 09:12
PROVIDERS: ATTEND Family Medicine
DX: M25.511 Pain in right shoulder (principal); E07.9 Disorder of thyroid, unspecified; Z96.611 Presence of right artificial shoulder joint

== ENCOUNTER → 2023-04-19 | Outpatient (REF) | payer MEDICARE ==
[2023-04-19 13:35] LABS: FREE T3 2.1 PG/ML (2.3-4.2); FREE T4 0.69 NG/DL (0.89-1.76); THYROID STIMULATING HORMONE 71.943 uIU/ML (0.55-4.78)
== END ==
LOC: M LABDRWAD 12:41
PROVIDERS: ATTEND Family Medicine
DX: E03.9 Hypothyroidism, unspecified (principal)

== ENCOUNTER → 2023-05-04 | Outpatient (REF) | payer MEDICARE ==
[2023-05-04 14:00] LABS: BLOOD UREA NITROGEN 28 MG/DL (9-23); CREATININE FOR GFR 1.22 MG/DL (0.70-1.30); GLOMERULAR FILTRATION RATE > 60.0 (>42)
== END ==
LOC: M LABDRWAD 13:02
PROVIDERS: ATTEND Internal Medicine Pulmonary Disease
DX: C34.11 Malignant neoplasm of upper lobe, right bronchus or lung (principal)

== ENCOUNTER → 2023-05-10 | Outpatient (CLI) | payer MEDICARE ==
[~2023-05-10] MED LIST changes: +ISOVUE-370 76% 100ML VIAL As Ordered ONE
== END ==
LOC: M RAD 10:28
PROVIDERS: ATTEND Internal Medicine Pulmonary Disease
DX: C34.11 Malignant neoplasm of upper lobe, right bronchus or lung (principal)
CPT/HCPCS: 71260; Q9967

== ENCOUNTER → 2023-05-11 | Outpatient (CLI) | payer MEDICARE ==
[~2023-05-11] MED LIST changes: -ISOVUE-370 76% 100ML VIAL As Ordered ONE
== END ==
LOC: M SOG 08:47
PROVIDERS: ATTEND Orthopaedic Surgery
DX: M17.0 Bilateral primary osteoarthritis of knee (principal)

== ENCOUNTER → 2023-06-06 | Outpatient (REF) | payer MEDICARE ==
[2023-06-06 15:29] LABS: FREE T3 2.3 PG/ML (2.3-4.2); THYROID STIMULATING HORMONE 31.414 uIU/ML (0.55-4.78)
[2023-06-06 15:30] LABS: FREE T4 1.11 NG/DL (0.89-1.76)
== END ==
LOC: M LABDRWAD 12:33
PROVIDERS: ATTEND Family Medicine
DX: E03.9 Hypothyroidism, unspecified (principal)

== ENCOUNTER → 2023-07-02 | Outpatient (CLI) | payer MEDICARE | LOC: M SOG 10:35 | PROVIDERS: ATTEND Orthopaedic Surgery | DX: M17.12 Unilateral primary osteoarthritis, left knee (principal); M25.462 Effusion, left knee ==

== ENCOUNTER → 2023-08-08 | Outpatient (CLI) | payer MEDICARE ==
[2023-08-08 12:52] LABS: HEMATOCRIT 35.3 % (42.0-52.0); HEMOGLOBIN 11.8 g/dl (13.5-17.5); MEAN CORPUSCULAR HEMOGLOBIN 36.3 pg (27.0-33.0); MEAN CORPUSCULAR HGB CONC 33.4 g/dl (32.0-36.5); MEAN CORPUSCULAR VOLUME 108.6 fl (80.0-96.0); PLATELET COUNT, AUTOMATED 340 10^3/uL (150-450); RED BLOOD COUNT 3.25 10^6/uL (4.30-6.10); WHITE BLOOD COUNT 10.2 10^3/uL (4.0-10.0)
[2023-08-08 13:17] LABS: ALBUMIN 3.8 G/DL (3.2-5.2); BILIRUBIN,DIRECT 0.2 MG/DL (<0.4); BILIRUBIN,TOTAL 0.5 MG/DL (0.3-1.2); MAGNESIUM LEVEL 1.6 MG/DL (1.8-2.4); TOTAL PROTEIN 6.8 G/DL (5.7-8.2)
== END ==
LOC: M ADAMS 10:05
PROVIDERS: ATTEND Physician Assistant
DX: I48.3 Typical atrial flutter (principal); J43.9 Emphysema, unspecified; J98.11 Atelectasis

== ENCOUNTER → 2023-08-13 | Outpatient (CLI) | payer MEDICARE | LOC: M SOG 10:45 | PROVIDERS: ATTEND Orthopaedic Surgery | DX: M25.561 Pain in right knee (principal); M17.11 Unilateral primary osteoarthritis, right knee ==

== ENCOUNTER → 2023-08-21 | Outpatient (CLI) | payer MEDICARE | LOC: M RAD 12:10 | PROVIDERS: ATTEND Surgery Vascular Surgery | DX: I65.23 Occlusion and stenosis of bilateral carotid arteries (principal) ==

== ENCOUNTER → 2023-09-14 | Outpatient (REF) | payer MEDICARE ==
[2023-09-14 14:08] LABS: FREE T3 2.4 PG/ML (2.3-4.2)
[2023-09-14 14:09] LABS: FREE T4 1.61 NG/DL (0.89-1.76)
== END ==
LOC: M LABDRWAD 12:24
PROVIDERS: ATTEND Family Medicine
DX: E03.9 Hypothyroidism, unspecified (principal); M70.51 Other bursitis of knee, right knee; Z79.899 Other long term (current) drug therapy

== ENCOUNTER → 2023-09-14 | Outpatient (REF) | payer MEDICARE ==
[2023-09-14 13:24] LABS: BASO # 0.1 10^3/uL (0.0-0.2); BASO % 0.6 % (0.0-1.0); EOS # 0.1 10^3/uL (0.0-0.5); EOS % 1.4 % (0.0-3.0); HEMATOCRIT 39.2 % (42.0-52.0); HEMOGLOBIN 12.8 g/dl (13.5-17.5); LYMPH # 1.7 10^3/uL (1.5-5.0); LYMPH % 19.5 % (24.0-44.0); MEAN CORPUSCULAR HEMOGLOBIN 35.8 pg (27.0-33.0); MEAN CORPUSCULAR HGB CONC 32.7 g/dl (32.0-36.5); MEAN CORPUSCULAR VOLUME 109.5 fl (80.0-96.0); MONO # 0.7 10^3/uL (0.0-0.8); MONO % 7.8 % (2.0-8.0); NEUTROPHILS # 6.2 10^3/uL (1.5-8.5); NEUTROPHILS % 70.4 % (36.0-66.0); PLATELET COUNT, AUTOMATED 281 10^3/uL (150-450); RED BLOOD COUNT 3.58 10^6/uL (4.30-6.10); WHITE BLOOD COUNT 8.8 10^3/uL (4.0-10.0)
== END ==
LOC: M LABDRWAD 12:26
PROVIDERS: ATTEND Orthopaedic Surgery
DX: M70.51 Other bursitis of knee, right knee (principal); Z79.899 Other long term (current) drug therapy

== ENCOUNTER → 2023-10-15 | Outpatient (CLI) | payer MEDICARE | LOC: M PLAIMG 09:53 | PROVIDERS: ATTEND Orthopaedic Surgery | DX: M25.561 Pain in right knee (principal); R93.6 Abnormal findings on diagnostic imaging of limbs ==

== ENCOUNTER → 2023-11-26 | Outpatient (REF) | payer MEDICARE ==
[2023-11-26 14:27] LABS: THYROID STIMULATING HORMONE 3.099 uIU/ML (0.55-4.78)
[2023-11-26 14:28] LABS: FREE T4 1.73 NG/DL (0.89-1.76)
[2023-11-26 14:30] LABS: FREE T3 2.1 PG/ML (2.3-4.2)
== END ==
LOC: M LABDRWAD 12:47
PROVIDERS: ATTEND Family Medicine
DX: E07.9 Disorder of thyroid, unspecified (principal)

== ENCOUNTER → 2024-02-04 | Outpatient (CLI) | payer MEDICARE ==
[2024-02-04 14:10] LABS: HEMATOCRIT 40.2 % (42.0-52.0); HEMOGLOBIN 13.5 g/dl (13.5-17.5); MEAN CORPUSCULAR HEMOGLOBIN 36.3 pg (27.0-33.0); MEAN CORPUSCULAR HGB CONC 33.6 g/dl (32.0-36.5); MEAN CORPUSCULAR VOLUME 108.1 fl (80.0-96.0); PLATELET COUNT, AUTOMATED 297 10^3/uL (150-450); RED BLOOD COUNT 3.72 10^6/uL (4.30-6.10); WHITE BLOOD COUNT 9.7 10^3/uL (4.0-10.0)
[2024-02-04 14:28] LABS: ALBUMIN 3.9 G/DL (3.2-5.2); ALKALINE PHOSPHATASE 70 U/L (46-116); ALT/SGPT 20 U/L (7.0-40); AST/SGOT 20 U/L (<34); BILIRUBIN,TOTAL 0.5 MG/DL (0.3-1.2); BLOOD UREA NITROGEN 24 MG/DL (9-23); CALCIUM LEVEL 9.7 MG/DL (8.3-10.6); CARBON DIOXIDE LEVEL 25 MMOL/L (20-31); CHLORIDE LEVEL 108 MMOL/L (98-107); CHOLESTEROL LEVEL 113 MG/DL (<200); CHOLESTEROL RISK RATIO 2.33 (<5); GLOMERULAR FILTRATION RATE > 60.0 (>42); GLUCOSE, FASTING 136 MG/DL (74-106); HDL CHOLESTEROL 48.3 MG/DL (>40); LDL CHOLESTEROL 48.9 MG/DL (<100); MAGNESIUM LEVEL 1.4 MG/DL (1.8-2.4); NON-HDL-C 64.7 MG/DL; POTASSIUM SERUM 4.5 MMOL/L (3.5-5.1); SODIUM LEVEL 142 MMOL/L (136-145); TOTAL PROTEIN 6.6 G/DL (5.7-8.2); TRIGLYCERIDES LEVEL 79 MG/DL (<150)
== END ==
LOC: M ADAMS 08:34
PROVIDERS: ATTEND Physician Assistant
DX: I48.3 Typical atrial flutter (principal); I48.0 Paroxysmal atrial fibrillation; I50.32 Chronic diastolic (congestive) heart failure; I25.10 Atherosclerotic heart disease of native coronary artery without angina pectoris; E78.2 Mixed hyperlipidemia

== ENCOUNTER → 2024-02-21 | Outpatient (CLI) | payer MEDICARE ==
[~2024-02-21] MED LIST changes: +TIZA4CAP3 PO; -TIZA4CAP6 PO
== END ==
LOC: M PLAIMG 10:25
PROVIDERS: ATTEND Physician Assistant
DX: I08.0 Rheumatic disorders of both mitral and aortic valves (principal)

== ENCOUNTER → 2024-07-16 | Outpatient (CLI) | payer MEDICARE, MEDICAID ==
[~2024-07-16] MED LIST changes: +FLUO-290 PO; -FLUO10CA18 PO
== END ==
LOC: M RAD 07:40
PROVIDERS: ATTEND Internal Medicine Pulmonary Disease
DX: Z12.2 Encounter for screening for malignant neoplasm of respiratory organs (principal); F17.218 Nicotine dependence, cigarettes, with other nicotine-induced disorders; R91.1 Solitary pulmonary nodule; J84.10 Pulmonary fibrosis, unspecified

== ENCOUNTER → 2024-08-13 | Outpatient (CLI) | payer MEDICARE, MEDICAID ==
[2024-08-13 13:55] LABS: HEMATOCRIT 39.8 % (42.0-52.0); HEMOGLOBIN 13.1 g/dl (13.5-17.5); MEAN CORPUSCULAR HEMOGLOBIN 36.5 pg (27.0-33.0); MEAN CORPUSCULAR HGB CONC 32.9 g/dl (32.0-36.5); MEAN CORPUSCULAR VOLUME 110.9 fl (80.0-96.0); PLATELET COUNT, AUTOMATED 290 10^3/uL (150-450); RED BLOOD COUNT 3.59 10^6/uL (4.30-6.10); WHITE BLOOD COUNT 8.8 10^3/uL (4.0-10.0)
[2024-08-13 14:04] LABS: ALBUMIN 3.9 G/DL (3.2-5.2); ALKALINE PHOSPHATASE 82 U/L (46-116); ALT/SGPT 17 U/L (7.0-40); AST/SGOT 21 U/L (<34); BLOOD UREA NITROGEN 17 MG/DL (9-23); CALCIUM LEVEL 9.9 MG/DL (8.3-10.6); CARBON DIOXIDE LEVEL 23 MMOL/L (20-31); CHLORIDE LEVEL 109 MMOL/L (98-107); CREATININE FOR GFR 1.22 MG/DL (0.70-1.30); GLOMERULAR FILTRATION RATE > 60.0 (>42); GLUCOSE, FASTING 89 MG/DL (74-106); MAGNESIUM LEVEL 1.7 MG/DL (1.8-2.4); POTASSIUM SERUM 4.6 MMOL/L (3.5-5.1); SODIUM LEVEL 141 MMOL/L (136-145)
[2024-08-13 14:15] LABS: BILIRUBIN,TOTAL 0.4 MG/DL (0.3-1.2)
== END ==
LOC: M ADAMS 10:38
PROVIDERS: ATTEND Physician Assistant
DX: I48.3 Typical atrial flutter (principal); I48.0 Paroxysmal atrial fibrillation; I50.32 Chronic diastolic (congestive) heart failure; J44.9 Chronic obstructive pulmonary disease, unspecified

== ENCOUNTER → 2024-11-19 | Outpatient (CLI) | payer MEDICARE, MEDICAID ==
[~2024-11-19] MED LIST changes: +FLUC-1 PO; -FLUC200T4 PO
== END ==
LOC: M CARPUL 09:32
PROVIDERS: ATTEND Physician Assistant
DX: I08.0 Rheumatic disorders of both mitral and aortic valves (principal); I50.30 Unspecified diastolic (congestive) heart failure; I35.0 Nonrheumatic aortic (valve) stenosis; I37.1 Nonrheumatic pulmonary valve insufficiency

== ENCOUNTER → 2024-11-26 | Outpatient (REF) | payer MEDICARE, MEDICAID ==
[2024-11-26 19:15] LABS: HEMATOCRIT 40.3 % (42.0-52.0); HEMOGLOBIN 13.6 g/dl (13.5-17.5); MEAN CORPUSCULAR HEMOGLOBIN 36.9 pg (27.0-33.0); MEAN CORPUSCULAR HGB CONC 33.7 g/dl (32.0-36.5); MEAN CORPUSCULAR VOLUME 109.2 fl (80.0-96.0); PLATELET COUNT, AUTOMATED 268 10^3/uL (150-450); RED BLOOD COUNT 3.69 10^6/uL (4.30-6.10)
[2024-11-26 19:41] LABS: CALCIUM LEVEL 9.5 MG/DL (8.3-10.6); CREATININE FOR GFR 1.39 MG/DL (0.70-1.30); GLOMERULAR FILTRATION RATE 52.9 (>42); POTASSIUM SERUM 4.7 MMOL/L (3.5-5.1)
== END ==
LOC: M LABDRWAD 17:31
PROVIDERS: ATTEND Physician Assistant
DX: I50.32 Chronic diastolic (congestive) heart failure (principal); I48.0 Paroxysmal atrial fibrillation

== ENCOUNTER 2025-02-28 05:35 | Inpatient (IN) | payer MEDICARE, MEDICAID ==
[~2025-02-28] VITALS: Ht 175.3 cm; Wt 73.3 kg
[2025-02-28 06:31] LABS: BASO % 0.3 % (0.0-1.0); EOS # 0.2 10^3/uL (0.0-0.5); EOS % 1.3 % (0.0-3.0); HEMATOCRIT 32.1 % (42.0-52.0); HEMOGLOBIN 10.4 g/dl (13.5-17.5); LYMPH # 0.6 10^3/uL (1.5-5.0); LYMPH % 5.3 % (24.0-44.0); MEAN CORPUSCULAR HEMOGLOBIN 32.7 pg (27.0-33.0); MEAN CORPUSCULAR HGB CONC 32.4 g/dl (32.0-36.5); MEAN CORPUSCULAR VOLUME 100.9 fl (80.0-96.0); MONO # 0.8 10^3/uL (0.0-0.8); MONO % 7.1 % (2.0-8.0); NEUTROPHILS # 10.2 10^3/uL (1.5-8.5); NEUTROPHILS % 85.2 % (36.0-66.0); PLATELET COUNT, AUTOMATED 516 10^3/uL (150-450); RED BLOOD COUNT 3.18 10^6/uL (4.30-6.10); WHITE BLOOD COUNT 11.9 10^3/uL (4.0-10.0)
[2025-02-28 06:55] LABS: CALCIUM LEVEL 8.8 MG/DL (8.3-10.6); CK-MB VALUE MASS 1.5 NG/ML (<3.6); CREATININE FOR GFR 1.02 MG/DL (0.70-1.30); GLOMERULAR FILTRATION RATE 76.2 (>42); POTASSIUM SERUM 4.6 MMOL/L (3.5-5.1)
[2025-02-28 06:57] LABS: MB/CK RELATIVE INDEX 2.5 (< OR =4)
[2025-02-28] MEDS ORDERED: ISOVUE-370 76% 100ML VIAL As Ordered ONE (08:19)
[2025-02-28 08:30] LABS: CK-MB VALUE MASS 1.9 NG/ML (<3.6)
[2025-02-28 08:31] LABS: MB/CK RELATIVE INDEX 3.39 (< OR =4)
[2025-02-28 08:50] LABS: VENOUS BASE EXCESS 1.2 (-2.0-2.0); VENOUS HCO3 25.8 MMOL/L (23.0-27.0); VENOUS O2 SATURATION 97.4 % (60.0-80.0); VENOUS PARTIAL PRESSURE CO2 40.8 mmHg (38.0-50.0); VENOUS PARTIAL PRESSURE O2 106.2 mmHg (30.0-50.0); VENOUS PH 7.418 UNITS (7.330-7.430); VENOUS STANDARD HCO3 25.5 MMOL/L
[2025-02-28] MEDS: methylPREDNISolone 125MG 2ML VIAL IV ONE (09:01)
[2025-02-28] MEDS: MORPHINE 2 MG/ML 1ML VIAL IV PRN ×2 (09:09→21:21)
[2025-02-28] MEDS: PIPERACILLIN/TAZOBACTAM SOD 4.5 GM in DEXTROSE 5% (D5W) ADV/MINI-BAG 50 ML IV ONE (09:10)
[2025-02-28] MEDS: DOXYCYCLINE HYCLATE 100MG TABLET PO ONE (09:10)
[2025-02-28] MEDS: IPRATROPIUM 0.5MG/ALBUTEROL 2.5MG INH SOL UD 3ML NEB PRN (09:27)
[2025-02-28 11:06] LABS: MB/CK RELATIVE INDEX 3.7 (< OR =4)
[2025-02-28] MEDS ORDERED: ALPR0.25 PO (16:17)
[2025-02-28] MEDS ORDERED: BUDE0.254 NEB (16:17)
[2025-02-28] MEDS ORDERED: VENTAER INH (16:17)
[2025-02-28] MEDS ORDERED: POTA-298 PO (16:17)
[2025-02-28] MEDS ORDERED: PRES10CA2 PO (16:17)
[2025-02-28] MEDS ORDERED: SYNT100T PO (16:17)
[2025-02-28] MEDS ORDERED: NIAC500T29 PO (16:17)
[2025-02-28] MEDS ORDERED: FOLI1TAB11 PO (16:17)
[2025-02-28] MEDS ORDERED: MULTTAB61 PO (16:17)
[2025-02-28] MEDS ORDERED: METH-1164 PO (16:17)
[2025-02-28] MEDS ORDERED: C 50TAB PO (16:17)
[2025-02-28] MEDS ORDERED: METO1TAB87 PO (16:17)
[2025-02-28] MEDS ORDERED: GABA-1490 PO (16:17)
[2025-02-28] MEDS ORDERED: OXYC10TA12 PO (16:17)
[2025-02-28] MEDS ORDERED: ASPI81TA26 PO (16:17)
[2025-02-28] MEDS ORDERED: PANT40TA29 PO (16:17)
[2025-02-28] MEDS ORDERED: VITA-168 PO (16:17)
[2025-02-28] MEDS ORDERED: HOME MED LIST COMPLETE! XX SCH (16:20)
[2025-02-28] MEDS ORDERED: DEXTROSE 50% 50ML SYRINGE IV PRN (16:35)
[2025-02-28] MEDS ORDERED: methocarbamoL 500 MG TAB PO PRN (16:35)
[2025-02-28] MEDS ORDERED: GLUCAGON INJ 1MG VIAL SC PRN (16:35)
[2025-02-28] MEDS ORDERED: ALPRAZolam 0.25 MG TAB PO PRN (16:35)
[2025-02-28] MEDS ORDERED: GLUCOSE 4 GM CHEW PO PRN (16:35)
[2025-02-28] MEDS: IPRATROPIUM 0.5MG/2.5ML (0.02%) SOLN NEB NEB ONE (16:49)
[2025-02-28] MEDS: PERCOCET 5MG/325MG TAB PO PRN ×2 (17:00→23:06)
[2025-02-28 17:16] VITALS: BP 114/55; TEMP 97.1; O2SAT 99
[2025-02-28] MEDS: GABAPENTIN 300 MG CAP PO SCH (18:33)
[2025-02-28] MEDS: INSULIN LISPRO (NovoLOG) PER UNIT SC SCH ×2 (18:33→21:00)
[2025-02-28] MEDS: FUROSEMIDE 40MG/4ML VIAL IV ONE (18:33)
[2025-02-28 19:21] LABS: MAGNESIUM LEVEL 1.8 MG/DL (1.8-2.4)
[2025-02-28] MEDS: BUDESONIDE 0.5 MG/2 ML INHALATION SUSPENSION NEB SCH (19:30)
[2025-02-28] MEDS: FORMOTEROL FUMARATE 20 MCG/2 ML INHALATION SOLUTION (PERFOROMIST) INH SCH (19:30)
[2025-02-28] MEDS: LEVALBUTEROL 1.25 MG 0.5ML CONCENTRATE NEB NEB SCH (19:30)
[2025-02-28 19:31] VITALS: O2SAT 97
[2025-02-28 20:58] VITALS: BP 91/55; TEMP 97.2; O2SAT 94
[2025-02-28] MEDS ORDERED: MAGNESIUM GLUCONATE 500 MG TAB PO SCH (21:00)
[2025-02-28] MEDS: METOPROLOL TART 25 MG TABLET PO SCH (21:00)
[2025-02-28] MEDS: methylPREDNISolone 40MG 1ML VIAL IV SCH (21:20)
[2025-02-28] MEDS: ATORVASTATIN 20 MG TAB PO SCH (21:20)
[2025-02-28] MEDS: FERROUS SULFATE 325MG TAB PO SCH (21:20)
[2025-02-28] MEDS: VITAMIN D 1,000 INTERNATIONAL UNITS TABLET PO SCH (21:20)
[2025-02-28] MEDS: FLUoxetine 10 MG CAP PO SCH (21:20)
[2025-02-28] MEDS: PANTOPRAZOLE 40MG TAB (PROTONIX) PO SCH (21:20)
[2025-02-28] MEDS: MAGNESIUM OXIDE 400MG TAB (MAG-OX) PO SCH (21:20)
[2025-02-28] MEDS: guaiFENesin SYRUP 200MG 10ML UDC PO PRN (23:01)
[2025-02-28 23:05] VITALS: BP 109/97; TEMP 97; O2SAT 94
[2025-03-01 04:05] LABS: HEMATOCRIT 29.4 % (42.0-52.0); HEMOGLOBIN 9.5 g/dl (13.5-17.5); MEAN CORPUSCULAR HEMOGLOBIN 32.1 pg (27.0-33.0); MEAN CORPUSCULAR HGB CONC 32.3 g/dl (32.0-36.5); MEAN CORPUSCULAR VOLUME 99.3 fl (80.0-96.0); PLATELET COUNT, AUTOMATED 542 10^3/uL (150-450); RED BLOOD COUNT 2.96 10^6/uL (4.30-6.10); WHITE BLOOD COUNT 8.8 10^3/uL (4.0-10.0)
[2025-03-01 04:40] LABS: CALCIUM LEVEL 8.7 MG/DL (8.3-10.6); CREATININE FOR GFR 1.01 MG/DL (0.70-1.30); GLOMERULAR FILTRATION RATE 77.1 (>42); POTASSIUM SERUM 4.5 MMOL/L (3.5-5.1)
[2025-03-01 05:03] VITALS: BP 103/55; TEMP 97.2; O2SAT 97
[2025-03-01] MEDS: LEVOTHYROXINE 100MCG TABLET (0.1MG) PO SCH (05:03)
[2025-03-01] MEDS: TIOTROPIUM BROM 2.5MCG/ACTUATION 4GM INH IH SCH (07:33)
[2025-03-01 07:55] VITALS: BP 110/56; TEMP 97.6; O2SAT 95
[2025-03-01] MEDS: ENOXAPARIN 40MG/0.4ML SYRINGE (J1650 PER 10MG) SC SCH (09:03)
[2025-03-01] MEDS: ASPIRIN 81MG ENTERIC TABLET PO SCH (09:03)
[2025-03-01] MEDS: FENOFIBRATE 145MG TABLET (TRICOR) PO SCH (09:04)
[2025-03-01] MEDS: ASCORBIC ACID 500 MG TAB PO SCH (09:04)
[2025-03-01] MEDS: CLOPIDOGREL 75 MG TAB PO SCH (09:04)
[2025-03-01] MEDS: FOLIC ACID 1MG TAB PO SCH (09:08)
[2025-03-01] MEDS: FUROSEMIDE 20 MG TAB PO SCH (09:08)
[2025-03-01 12:00] VITALS: BP 114/55; TEMP 97.3; O2SAT 96
[2025-03-01] MEDS ORDERED: IPRATROPIUM 0.5MG/2.5ML (0.02%) SOLN NEB INH SCH (12:00)
[2025-03-01] MEDS: guaiFENesin ER TABLET 600 MG TAB PO SCH (13:34)
[2025-03-01] MEDS: LEVALBUTEROL 1.25 MG 0.5ML CONCENTRATE NEB NEB SCH (14:03)
[2025-03-01] MEDS: IPRATROPIUM 0.5MG/2.5ML (0.02%) SOLN NEB INH SCH (14:03)
[2025-03-01 15:12] LABS: PROCALCITONIN 0.12 ng/ml
[2025-03-01 15:13] LABS: PROCALCITONIN 0.11 ng/ml
[2025-03-01 16:12] VITALS: BP 104/56; TEMP 97; O2SAT 98
[2025-03-01] MEDS: methylPREDNISolone 40MG 1ML VIAL IV SCH (17:22)
[2025-03-01 19:08] VITALS: O2SAT 98
[2025-03-01 19:57] VITALS: BP 101/54; TEMP 97.2; O2SAT 95
[2025-03-02] VITALS (12 sets, daily range): BP systolic 103–132; BP diastolic 56–65; TEMP 97–97.7; O2SAT 86–96
[2025-03-02 05:19] LABS: BASO % 0.1 % (0.0-1.0); HEMATOCRIT 28.7 % (42.0-52.0); HEMOGLOBIN 9.1 g/dl (13.5-17.5); LYMPH # 0.4 10^3/uL (1.5-5.0); LYMPH % 3.5 % (24.0-44.0); MEAN CORPUSCULAR HEMOGLOBIN 31.9 pg (27.0-33.0); MEAN CORPUSCULAR HGB CONC 31.7 g/dl (32.0-36.5); MEAN CORPUSCULAR VOLUME 100.7 fl (80.0-96.0); MONO # 0.3 10^3/uL (0.0-0.8); MONO % 2.6 % (2.0-8.0); NEUTROPHILS # 10.2 10^3/uL (1.5-8.5); NEUTROPHILS % 93.1 % (36.0-66.0); PLATELET COUNT, AUTOMATED 568 10^3/uL (150-450); RED BLOOD COUNT 2.85 10^6/uL (4.30-6.10); WHITE BLOOD COUNT 10.9 10^3/uL (4.0-10.0)
[2025-03-02 05:40] LABS: CALCIUM LEVEL 8.8 MG/DL (8.3-10.6); CREATININE FOR GFR 1.1 MG/DL (0.70-1.30); GLOMERULAR FILTRATION RATE 69.6 (>42); POTASSIUM SERUM 4.4 MMOL/L (3.5-5.1)
[2025-03-02] MEDS: DOCUSATE SODIUM 100MG CAPSULE PO SCH (08:39)
[2025-03-02] MEDS: MORPHINE 2 MG/ML 1ML VIAL IV ONE (17:12)
[2025-03-03 03:53] VITALS: BP 120/60; TEMP 97.3; O2SAT 91
[2025-03-03 06:04] LABS: BASO % 0.1 % (0.0-1.0); HEMATOCRIT 30.7 % (42.0-52.0); HEMOGLOBIN 9.9 g/dl (13.5-17.5); LYMPH # 0.4 10^3/uL (1.5-5.0); LYMPH % 3.6 % (24.0-44.0); MEAN CORPUSCULAR HEMOGLOBIN 32.8 pg (27.0-33.0); MEAN CORPUSCULAR HGB CONC 32.2 g/dl (32.0-36.5); MEAN CORPUSCULAR VOLUME 101.7 fl (80.0-96.0); MONO # 0.4 10^3/uL (0.0-0.8); MONO % 3.5 % (2.0-8.0); NEUTROPHILS # 10.8 10^3/uL (1.5-8.5); NEUTROPHILS % 91.9 % (36.0-66.0); PLATELET COUNT, AUTOMATED 585 10^3/uL (150-450); RED BLOOD COUNT 3.02 10^6/uL (4.30-6.10); WHITE BLOOD COUNT 11.7 10^3/uL (4.0-10.0)
[2025-03-03 06:35] LABS: CALCIUM LEVEL 9.1 MG/DL (8.3-10.6); CREATININE FOR GFR 1.03 MG/DL (0.70-1.30); GLOMERULAR FILTRATION RATE 75.3 (>42); POTASSIUM SERUM 5.1 MMOL/L (3.5-5.1)
[2025-03-03 07:55] VITALS: O2SAT 98
[2025-03-03 12:00] VITALS: BP 116/64; TEMP 97.5; O2SAT 94
[2025-03-03] MEDS: KETOROLAC 30 MG/ML 1ML VIAL IV ONE (13:08)
[2025-03-03] MEDS: MONTELUKAST 10 MG TAB PO ONE (13:09)
[2025-03-03] MEDS: BENZONATATE 100MG CAPSULE PO SCH (13:11)
[2025-03-03 19:38] VITALS: BP 115/58; TEMP 97.2; O2SAT 92
[2025-03-04 04:13] VITALS: BP 127/70; TEMP 97; O2SAT 98
[2025-03-04 07:30] VITALS: O2SAT 95
[2025-03-04] MEDS ORDERED: ALBU8.5H INH (11:02)
[2025-03-04] MEDS ORDERED: PRED20TA PO (11:02)
[2025-03-04] MEDS ORDERED: DOXY-440 PO (11:02)
[2025-03-04] MEDS ORDERED: PRED10TA2 PO (11:02)
[2025-03-04] MEDS ORDERED: AMOX875T2 PO (11:02)
[2025-03-04 12:00] VITALS: BP 127/69; TEMP 96.8; O2SAT 90
[2025-03-04 16:03] LABS: BASO % 0.1 % (0.0-1.0); HEMATOCRIT 30.5 % (42.0-52.0); HEMOGLOBIN 9.5 g/dl (13.5-17.5); LYMPH # 0.4 10^3/uL (1.5-5.0); LYMPH % 3.1 % (24.0-44.0); MEAN CORPUSCULAR HEMOGLOBIN 32.1 pg (27.0-33.0); MEAN CORPUSCULAR HGB CONC 31.1 g/dl (32.0-36.5); MONO # 0.3 10^3/uL (0.0-0.8); MONO % 2.7 % (2.0-8.0); NEUTROPHILS # 11.2 10^3/uL (1.5-8.5); NEUTROPHILS % 93.3 % (36.0-66.0); PLATELET COUNT, AUTOMATED 530 10^3/uL (150-450); RED BLOOD COUNT 2.96 10^6/uL (4.30-6.10)
[2025-03-04 16:11] LABS: ERYTHROCYTE SEDIMENTATION RATE 18 mm/hr (0-20)
[2025-03-04 16:21] VITALS: BP 124/70; TEMP 97.2; O2SAT 94
[2025-03-04] MEDS: MIDODRINE 5 MG TAB PO ONE (16:23)
[2025-03-04 16:27] LABS: C REACTIVE PROTEIN QUANTITATIV 1.53 MG/DL (<1.0); CALCIUM LEVEL 8.6 MG/DL (8.3-10.6); CREATININE FOR GFR 1.39 MG/DL (0.70-1.30); GLOMERULAR FILTRATION RATE 52.5 (>42); POTASSIUM SERUM 4.9 MMOL/L (3.5-5.1)
[2025-03-04 16:39] LABS: PROCALCITONIN 0.08 ng/ml
[2025-03-04] MEDS: FUROSEMIDE 20MG/2ML VIAL IV ONE (16:52)
[2025-03-04] MEDS: predniSONE 20 MG TAB PO SCH (17:48)
[2025-03-04 20:00] VITALS: BP 92/58; TEMP 97.5; O2SAT 93
[2025-03-04 23:21] VITALS: O2SAT 94
[2025-03-05 04:00] VITALS: BP 130/57; TEMP 97.3; O2SAT 93
[2025-03-05 08:06] VITALS: BP 137/50
[2025-03-05 12:00] VITALS: BP 137/62; TEMP 97.2; O2SAT 93
[2025-03-05 16:50] VITALS: BP 108/67
== END 2025-03-05 16:00 | disposition home health service (06) | DRG 190 ==
LOC: M ED 05:35 → M ED INP 15:44 → M PCU 17:12 → M MS5PR 03-02 17:46
PROVIDERS: ADMIT Internal Medicine; ATTEND General Practice
PROC: B246ZZZ Ultrasonography of Right and Left Heart (ICD-10-PCS; principal; 2025-03-05)
DX: J44.1 Chronic obstructive pulmonary disease with (acute) exacerbation (principal); J12.89 Other viral pneumonia; I50.32 Chronic diastolic (congestive) heart failure; J96.11 Chronic respiratory failure with hypoxia; I48.92 Unspecified atrial flutter; I25.10 Atherosclerotic heart disease of native coronary artery without angina pectoris; E03.9 Hypothyroidism, unspecified; J44.0 Chronic obstructive pulmonary disease with (acute) lower respiratory infection; I48.0 Paroxysmal atrial fibrillation; E11.42 Type 2 diabetes mellitus with diabetic polyneuropathy; B34.8 Other viral infections of unspecified site; K21.9 Gastro-esophageal reflux disease without esophagitis; F32.A Depression, unspecified; Z87.891 Personal history of nicotine dependence; Z90.2 Acquired absence of lung [part of]; Z79.82 Long term (current) use of aspirin; Z79.890 Hormone replacement therapy; Z79.84 Long term (current) use of oral hypoglycemic drugs; Z79.899 Other long term (current) drug therapy; Z79.02 Long term (current) use of antithrombotics/antiplatelets; Z99.81 Dependence on supplemental oxygen; Z95.5 Presence of coronary angioplasty implant and graft; Z85.118 Personal history of other malignant neoplasm of bronchus and lung; Z95.2 Presence of prosthetic heart valve

== ENCOUNTER → 2025-08-03 | Outpatient (CLI) | payer MEDICARE, MEDICAID ==
[~2025-08-03] MED LIST changes: +ALBU8.5H INH; +ALPR0.25 PO; +AMOX875T2 PO; +ASPI81TA26 PO; +BUDE0.254 NEB; +C 50TAB PO; +DOXY-440 PO; +FOLI1TAB11 PO; +GABA-1490 PO; +METH-1164 PO; +METO1TAB87 PO; +MULTTAB61 PO; +NIAC500T29 PO; +OXYC10TA12 PO; +POTA-298 PO; +PRED10TA2 PO; +PRED20TA PO; +PRES10CA2 PO; +SYNT100T PO; +VENTAER INH; +VITA-168 PO
== END ==
LOC: M PLAIMG 09:27
PROVIDERS: ATTEND Physician Assistant
DX: I08.0 Rheumatic disorders of both mitral and aortic valves (principal); Z95.3 Presence of xenogenic heart valve

== ENCOUNTER 2025-10-14 13:34 | Emergency (ER) | payer MEDICARE, MEDICAID ==
[~2025-10-14] VITALS: Ht 172.7 cm; Wt 69.4 kg
[2025-10-14 15:46] VITALS: BP 129/64; TEMP 97.2; O2SAT 93
== END 2025-10-14 15:57 | disposition home or self-care (01) ==
LOC: M ED 13:34
DX: I82.C11 Acute embolism and thrombosis of right internal jugular vein (principal); I25.10 Atherosclerotic heart disease of native coronary artery without angina pectoris; E11.9 Type 2 diabetes mellitus without complications; K21.9 Gastro-esophageal reflux disease without esophagitis; M54.50 Low back pain, unspecified; F41.9 Anxiety disorder, unspecified; F32.9 Major depressive disorder, single episode, unspecified; Z95.5 Presence of coronary angioplasty implant and graft; F17.200 Nicotine dependence, unspecified, uncomplicated; Z79.84 Long term (current) use of oral hypoglycemic drugs; Z79.899 Other long term (current) drug therapy; Z79.82 Long term (current) use of aspirin; D48.5 Neoplasm of uncertain behavior of skin; R22.1 Localized swelling, mass and lump, neck

== ENCOUNTER → 2025-10-14 | Outpatient (CLI) | payer MEDICARE, MEDICAID | LOC: M RAD 11:39 | PROVIDERS: ATTEND Family Medicine | DX: D48.5 Neoplasm of uncertain behavior of skin (principal); R22.1 Localized swelling, mass and lump, neck ==